=== PATIENT | male | born 1960 | race Caucasian/White ===

== ENCOUNTER → 2016-08-19 | Outpatient (CLI) | payer MEDICARE, MEDICAID ==
--- NOTE | 2016-08-19 11:40 | REP ---
SCROTAL ULTRASOUND: Real-time sonographic evaluation of the scrotum and contents performed. The testicles are normal in size and echotexture, right testicle measuring 5.0 x 2.3 x 3.3 cm and the left testicle 4.7 x 2.2 x 3.6 cm. There is no testicular mass or torsion. Blood for is seen in each testicle with duplex Doppler evaluation, RI of the right testicle is 0.48 and the left testicle is 0.44. IMPRESSION: Negative scrotal ultrasound. Signed by Teddy Hernandez MD 08/19/2016 03:54 P
== END ==
LOC: M RAD 10:37
PROVIDERS: ATTEND Nurse Practitioner Adult Health
DX: N50.9 Disorder of male genital organs, unspecified (principal)

== ENCOUNTER 2018-04-09 06:45 | Emergency (ER) | payer MEDICARE, MEDICAID ==
[2018-04-09 07:29] LABS: BASO % 0.2 % (0.0-1.0); EOS # 0.2 10^3/uL (0.0-0.50); EOS % 1.1 % (0.0-3.0); HEMATOCRIT 53.3 % (42.0-52.0); HEMOGLOBIN 17.3 g/dl (13.5-17.5); IMMATURE GRANULOCYTE % 0.8 % (0-3.0); LYMPH # 3.6 10^3/uL (1.5-4.5); MEAN CORPUSCULAR HEMOGLOBIN 27.8 pg (27.0-33.0); MEAN CORPUSCULAR HGB CONC 32.5 g/dl (32.0-36.5); MEAN CORPUSCULAR VOLUME 85.7 fl (80.0-96.0); MONO # 1.2 10^3/uL (0.0-0.8); MONO % 6.1 % (0.0-5.0); NEUTROPHILS # 14.5 10^3/uL (1.8-7.7); NEUTROPHILS % 73.8 % (36.0-66.0); PLATELET COUNT, AUTOMATED 230 10^3/uL (150-450); RED BLOOD COUNT 6.22 10^6/uL (4.30-6.10); RED CELL DISTRIBUTION WIDTH 14.2 % (11.5-14.5); WHITE BLOOD COUNT 19.7 10^3/uL (4.0-10.0)
[2018-04-09] MEDS: ONDANSETRON 4MG/2ML VIAL (J2405) IV (07:42)
[2018-04-09] MEDS: NS 1,000 ML IV (07:42)
[2018-04-09] MEDS: KETOROLAC 30 MG/ML VIAL (J1885) IV (07:42)
[2018-04-09 07:53] LABS: ANION GAP 7 MEQ/L (8-16); BLOOD UREA NITROGEN 13 MG/DL (7-18); CALCIUM LEVEL 8.9 MG/DL (8.5-10.1); CARBON DIOXIDE LEVEL 27 MEQ/L (21-32); CHLORIDE LEVEL 103 MEQ/L (98-107); CREATININE FOR GFR 0.88 MG/DL (0.70-1.30); GLOMERULAR FILTRATION RATE > 60.0 (>56); GLUCOSE, FASTING 120 MG/DL (70-100); POTASSIUM SERUM 3.8 MEQ/L (3.5-5.1); SODIUM LEVEL 137 MEQ/L (136-145)
[2018-04-09] MEDS ORDERED: ISOVUE-370 76% 100ML VIAL (Q9967) As Ordered (08:01)
[2018-04-09] MEDS: MORPHINE 4 MG/ML 1ML VIAL/SYRINGE (J2270) IV (08:39)
[2018-04-09] MEDS: metroNIDAZOLE (FLAGYL) 500 MG TAB PO (09:23)
[2018-04-09] MEDS: CIPROFLOXACIN 500 MG TAB PO (09:23)
[2018-04-09 09:38] LABS: ALBUMIN 3.5 GM/DL (3.2-5.2); ALKALINE PHOSPHATASE 105 U/L (45-117); ALT/SGPT 19 U/L (12-78); AST/SGOT 17 U/L (7-37); BILIRUBIN,DIRECT 0.1 MG/DL (0.0-0.2); BILIRUBIN,TOTAL 0.4 MG/DL (0.2-1.0); C REACTIVE PROTEIN QUANTITATIV 5.79 MG/DL (0.00-0.30); LIPASE 57 U/L (73-393)
== END 2018-04-09 09:28 | disposition home or self-care (01) ==
LOC: M ED 06:45
DX: A08.4 Viral intestinal infection, unspecified (principal); I10 Essential (primary) hypertension; Z91.19 Patient's noncompliance with other medical treatment and regimen; F17.210 Nicotine dependence, cigarettes, uncomplicated
CPT/HCPCS: J2270

== ENCOUNTER 2019-02-05 03:44 | Emergency (ER) | payer MEDICARE ==
[~2019-02-05] VITALS: Ht 170.2 cm; Wt 67.4 kg
[~2019-02-05 03:44] MED LIST: CIPR-249 PO; FLAG500T PO; HYDR-3715 PO; ZOFR4TAB14 PO
[2019-02-05] MEDS ORDERED: SUMAtriptan SUCCINATE 6 MG/0.5 ML VIAL SC ONE (04:45)
[2019-02-05 05:12] VITALS: BP 177/101
== END 2019-02-05 05:14 | disposition home or self-care (01) ==
LOC: M ED 03:44
DX: G43.909 Migraine, unspecified, not intractable, without status migrainosus (principal); F17.200 Nicotine dependence, unspecified, uncomplicated

== ENCOUNTER 2019-03-06 20:09 | Emergency (ER) | payer MEDICARE ==
[~2019-03-06] VITALS: Ht 170.2 cm; Wt 67.9 kg
[2019-03-06 20:15] VITALS: BP 240/140
[2019-03-06] MEDS ORDERED: ACET-683 PO (20:18)
== END 2019-03-06 20:44 | disposition left against medical advice (07) ==
LOC: M ED 20:09
DX: I10 Essential (primary) hypertension (principal); G43.909 Migraine, unspecified, not intractable, without status migrainosus; F17.200 Nicotine dependence, unspecified, uncomplicated

== ENCOUNTER 2019-12-25 20:40 | Inpatient (IN) | payer MEDICARE ==
[~2019-12-25 20:40] MED LIST changes: +ACET-683 PO; +HYDROMORPHONE HCL 0.5 MG/ 0.5 ML SYRINGE (J1170 PER 1) As Ordered ONE; +ISOVUE-370 76% 100ML VIAL As Ordered ONE; +LABETALOL 100MG/20ML VIAL As Ordered ONE; +MORPHINE 4 MG/ML 1ML VIAL/SYRINGE (J2270) As Ordered ONE; +hydrALAZINE 20MG/ML 1ML VIAL (J0360 PER 20MG) As Ordered ONE; +niCARdipine 40MG IN 200ML NACL IV BAG As Ordered ONE
[2019-12-25] MEDS ORDERED: MIRALAX *UNIT DOSE* 17GM PACKET As Ordered ONE (22:27)
[2019-12-25] MEDS ORDERED: KETOROLAC 30 MG/ML 1ML VIAL As Ordered ONE (23:36)
[2019-12-25] MEDS ORDERED: ONDANSETRON 4MG/2ML VIAL As Ordered ONE (23:36)
[2019-12-26] MEDS ORDERED: MIRALAX *UNIT DOSE* 17GM PACKET As Ordered ONE ×2 (00:26→20:07)
[2019-12-26] MEDS ORDERED: lisinopriL 5 MG TAB As Ordered ONE (00:26)
[2019-12-26] MEDS ORDERED: MAGNESIUM OXIDE 400 MG TAB (MAG-OX) As Ordered ONE (00:49)
[2019-12-26] MEDS ORDERED: BISACODYL 5 MG TAB As Ordered ONE (02:36)
[2019-12-26] MEDS ORDERED: RAMELTEON 8 MG TAB (ROZEREM) As Ordered ONE ×2 (03:18→22:37)
[2019-12-26] MEDS ORDERED: SIMETHICONE 80 MG CHEW TAB As Ordered ONE (03:19)
[2019-12-26] MEDS ORDERED: MORPHINE 2 MG/ML 1ML VIAL (J2270) As Ordered ONE ×3 (09:22→20:43)
[2019-12-26] MEDS ORDERED: PROHANCE 279.3MG/ML 15ML VIAL As Ordered ONE (09:41)
[2019-12-26] MEDS ORDERED: LORazepam 2 MG/ML VIAL As Ordered ONE (10:07)
[2019-12-26] MEDS ORDERED: SENOKOT S TAB As Ordered ONE ×2 (10:56→20:07)
[2019-12-26] MEDS ORDERED: ENOXAPARIN 40MG/0.4ML SYRINGE (J1650 PER 10MG) As Ordered ONE (10:56)
[2019-12-26] MEDS ORDERED: CIPROFLOXACIN/D5W 400 MG/200 ML BAG (J0744) As Ordered ONE ×2 (10:56→21:05)
[2019-12-26] MEDS ORDERED: ASPIRIN 81 MG ENTERIC TAB As Ordered ONE (10:57)
[2019-12-26] MEDS ORDERED: amLODIPine 5 MG TAB As Ordered ONE ×2 (10:57→18:13)
[2019-12-26] MEDS ORDERED: lisinopriL 10 MG TAB As Ordered ONE (10:57)
[2019-12-26] MEDS ORDERED: LABETALOL 100MG/20ML VIAL ONE (11:00)
[2019-12-26] MEDS ORDERED: metroNIDAZOLE/NACL 500MG(5MG/ML) 100ML BAG (S0030) As Ordered ONE ×2 (13:14→22:02)
[2019-12-26] MEDS ORDERED: **hydrALAZINE HCL** 25 MG TAB As Ordered ONE ×3 (13:39→20:41)
[2019-12-26] MEDS ORDERED: LABETALOL 100MG/20ML VIAL As Ordered ONE (14:44)
[2019-12-26] MEDS ORDERED: LACOSAMIDE 10MG/ML 20ML VIAL (VIMPAT) As Ordered ONE (21:05)
[2019-12-26] MEDS ORDERED: niCARdipine 40MG IN 200ML NACL IV BAG As Ordered ONE (21:32)
[2019-12-26] MEDS ORDERED: NICOTINE 21MG/24HR 1 EA TRANSDERMAL As Ordered ONE (22:40)
[2019-12-26] MEDS ORDERED: NORCO, ANEXSIA 5/325MG TABLET (HYDROcodone/ACETAMINOPHEN) As Ordered ONE (23:07)
[2019-12-26] MEDS ORDERED: KETOROLAC 30 MG/ML 1ML VIAL As Ordered ONE (23:19)
[2019-12-27] MEDS ORDERED: metroNIDAZOLE/NACL 500MG(5MG/ML) 100ML BAG (S0030) As Ordered ONE ×3 (05:11→21:39)
[2019-12-27] MEDS ORDERED: MORPHINE 2 MG/ML 1ML VIAL (J2270) As Ordered ONE ×4 (07:57→19:57)
[2019-12-27] MEDS ORDERED: amLODIPine 10 MG TAB As Ordered ONE (07:57)
[2019-12-27] MEDS ORDERED: METOPROLOL TART 50 MG TAB As Ordered ONE ×2 (08:23→19:57)
[2019-12-27] MEDS ORDERED: cloNIDine 0.1 MG TAB As Ordered ONE ×3 (08:24→19:57)
[2019-12-27] MEDS ORDERED: ENOXAPARIN 40MG/0.4ML SYRINGE (J1650 PER 10MG) As Ordered ONE (09:27)
[2019-12-27] MEDS ORDERED: SENOKOT S TAB As Ordered ONE ×2 (09:28→20:38)
[2019-12-27] MEDS ORDERED: ASPIRIN 81 MG ENTERIC TAB As Ordered ONE (09:29)
[2019-12-27] MEDS ORDERED: CIPROFLOXACIN/D5W 400 MG/200 ML BAG (J0744) As Ordered ONE ×2 (09:30→22:59)
[2019-12-27] MEDS ORDERED: ADVAIR HFA 115/21MCG INHALER ONE (10:00)
[2019-12-27] MEDS ORDERED: LORazepam 2 MG/ML VIAL As Ordered ONE (11:49)
[2019-12-27] MEDS ORDERED: ISOVUE-370 76% 100ML VIAL As Ordered ONE (12:18)
[2019-12-27] MEDS ORDERED: NICOTINE 21MG/24HR 1 EA TRANSDERMAL As Ordered ONE (13:12)
[2019-12-27] MEDS ORDERED: LIDOCAINE 5% (LIDODERM) PATCH As Ordered ONE (13:12)
[2019-12-27] MEDS ORDERED: LABETALOL 100MG/20ML VIAL As Ordered ONE (14:40)
[2019-12-27] MEDS ORDERED: BISACODYL 5 MG TAB As Ordered ONE (16:33)
[2019-12-27] MEDS ORDERED: MIRALAX *UNIT DOSE* 17GM PACKET As Ordered ONE (20:37)
[2019-12-27] MEDS ORDERED: ALPRAZolam 0.25 MG TAB As Ordered ONE (20:38)
[2019-12-28] MEDS ORDERED: MORPHINE 2 MG/ML 1ML VIAL (J2270) As Ordered ONE ×2 (00:16→04:06)
[2019-12-28] MEDS ORDERED: metroNIDAZOLE/NACL 500MG(5MG/ML) 100ML BAG (S0030) As Ordered ONE ×3 (05:55→19:41)
[2019-12-28] MEDS ORDERED: LABETALOL 100 MG TAB As Ordered ONE ×2 (09:28→19:42)
[2019-12-28] MEDS ORDERED: NICOTINE 21MG/24HR 1 EA TRANSDERMAL As Ordered ONE (09:28)
[2019-12-28] MEDS ORDERED: CIPROFLOXACIN/D5W 400 MG/200 ML BAG (J0744) As Ordered ONE ×2 (09:29→22:45)
[2019-12-28] MEDS ORDERED: LIDOCAINE 5% (LIDODERM) PATCH As Ordered ONE (09:29)
[2019-12-28] MEDS ORDERED: ENOXAPARIN 40MG/0.4ML SYRINGE (J1650 PER 10MG) As Ordered ONE (09:29)
[2019-12-28] MEDS ORDERED: SENOKOT S TAB As Ordered ONE ×2 (09:29→19:42)
[2019-12-28] MEDS ORDERED: cloNIDine 0.1 MG TAB As Ordered ONE ×2 (09:30→19:43)
[2019-12-28] MEDS ORDERED: ASPIRIN 81 MG ENTERIC TAB As Ordered ONE (09:31)
[2019-12-28] MEDS ORDERED: amLODIPine 10 MG TAB As Ordered ONE (09:31)
[2019-12-28] MEDS ORDERED: LACTULOSE 20 GM/30 ML SYRUP UD As Ordered ONE (09:31)
[2019-12-28] MEDS ORDERED: PERCOCET 5MG/325MG TAB As Ordered ONE ×3 (09:34→19:43)
[2019-12-28] MEDS ORDERED: ADVAIR HFA 115/21MCG INHALER ONE (10:00)
[2019-12-28] MEDS ORDERED: IPRATROPIUM 0.5MG/ALBUTEROL 2.5MG INH SOL UD 3ML (DUONEB) ONE (10:00)
[2019-12-28] MEDS ORDERED: MIRALAX *UNIT DOSE* 17GM PACKET As Ordered ONE (19:41)
[2019-12-28] MEDS ORDERED: ALPRAZolam 0.25 MG TAB As Ordered ONE (19:42)
[2019-12-28] MEDS ORDERED: ONDANSETRON 4MG/2ML VIAL As Ordered ONE (19:51)
[2019-12-28] MEDS ORDERED: SIMETHICONE 80 MG CHEW TAB As Ordered ONE (22:50)
[2019-12-29] MEDS ORDERED: PERCOCET 5MG/325MG TAB ONE ×3 (01:06→12:45)
[2019-12-29] MEDS ORDERED: metroNIDAZOLE/NACL 500MG(5MG/ML) 100ML BAG (S0030) ONE (05:51)
[2019-12-29] MEDS ORDERED: ALPRAZolam 0.25 MG TAB ONE (05:51)
[2019-12-29] MEDS ORDERED: cloNIDine 0.1 MG TAB ONE (07:55)
[2019-12-29] MEDS ORDERED: LIDOCAINE 5% (LIDODERM) PATCH ONE (07:55)
[2019-12-29] MEDS ORDERED: ENOXAPARIN 40MG/0.4ML SYRINGE (J1650 PER 10MG) ONE (07:55)
[2019-12-29] MEDS ORDERED: SENNA 8.6 MG TAB (SENOKOT) ONE (07:55)
[2019-12-29] MEDS ORDERED: ASPIRIN 81 MG ENTERIC TAB ONE (07:55)
[2019-12-29] MEDS ORDERED: LABETALOL 100 MG TAB ONE ×2 (07:55→09:32)
[2019-12-29] MEDS ORDERED: amLODIPine 10 MG TAB ONE (07:55)
[2019-12-29] MEDS ORDERED: NICOTINE 21MG/24HR 1 EA TRANSDERMAL ONE (07:55)
[2019-12-29] MEDS ORDERED: LABETALOL 100MG/20ML VIAL ONE (08:00)
[2019-12-29] MEDS ORDERED: ADVAIR HFA 115/21MCG INHALER ONE (10:00)
[2019-12-29] MEDS ORDERED: IPRATROPIUM 0.5MG/ALBUTEROL 2.5MG INH SOL UD 3ML (DUONEB) ONE (10:00)
[2019-12-29] MEDS ORDERED: CIPROFLOXACIN/D5W 400 MG/200 ML BAG (J0744) ONE (11:27)
[2019-12-29] MEDS ORDERED: LABETALOL ONE (13:00)
[2019-12-29] MEDS ORDERED: MAGNESIUM CITRATE 300 ML BTL ONE (13:31)
[2019-12-29] MEDS ORDERED: metroNIDAZOLE/NACL 500MG(5MG/ML) 100ML BAG (S0030) As Ordered ONE ×2 (13:34→20:35)
[2019-12-29] MEDS ORDERED: ALPRAZolam 0.25 MG TAB As Ordered ONE ×2 (15:09→20:56)
[2019-12-29] MEDS ORDERED: MOM 30ML SUSPENSION UDC As Ordered ONE (20:35)
[2019-12-29] MEDS ORDERED: ONDANSETRON 4MG/2ML VIAL As Ordered ONE (20:35)
[2019-12-29] MEDS ORDERED: MIRALAX *UNIT DOSE* 17GM PACKET As Ordered ONE (20:35)
[2019-12-29] MEDS ORDERED: SENNA 8.6 MG TAB (SENOKOT) As Ordered ONE (20:35)
[2019-12-29] MEDS ORDERED: LABETALOL 200 MG TAB As Ordered ONE (20:36)
[2019-12-29] MEDS ORDERED: PERCOCET 5MG/325MG TAB As Ordered ONE (20:56)
[2019-12-29] MEDS ORDERED: cloNIDine 0.1 MG TAB As Ordered ONE (21:20)
[2019-12-29] MEDS ORDERED: CIPROFLOXACIN/D5W 400 MG/200 ML BAG (J0744) As Ordered ONE (23:43)
[2019-12-30] MEDS ORDERED: metroNIDAZOLE/NACL 500MG(5MG/ML) 100ML BAG (S0030) As Ordered ONE ×3 (05:47→22:17)
[2019-12-30] MEDS ORDERED: NICOTINE 21MG/24HR 1 EA TRANSDERMAL As Ordered ONE (08:17)
[2019-12-30] MEDS ORDERED: SENNA 8.6 MG TAB (SENOKOT) As Ordered ONE (08:17)
[2019-12-30] MEDS ORDERED: cloNIDine 0.1 MG TAB As Ordered ONE ×2 (08:18→21:15)
[2019-12-30] MEDS ORDERED: ENOXAPARIN 40MG/0.4ML SYRINGE (J1650 PER 10MG) As Ordered ONE (08:18)
[2019-12-30] MEDS ORDERED: ALPRAZolam 0.25 MG TAB As Ordered ONE ×2 (08:18→21:24)
[2019-12-30] MEDS ORDERED: LIDOCAINE 5% (LIDODERM) PATCH As Ordered ONE (08:18)
[2019-12-30] MEDS ORDERED: ASPIRIN 81 MG ENTERIC TAB As Ordered ONE (08:19)
[2019-12-30] MEDS ORDERED: PERCOCET 5MG/325MG TAB As Ordered ONE ×3 (08:19→21:24)
[2019-12-30] MEDS ORDERED: amLODIPine 10 MG TAB As Ordered ONE (08:19)
[2019-12-30] MEDS ORDERED: LABETALOL 200 MG TAB As Ordered ONE ×2 (08:31→21:14)
[2019-12-30] MEDS ORDERED: ADVAIR HFA 115/21MCG INHALER ONE (10:00)
[2019-12-30] MEDS ORDERED: IPRATROPIUM 0.5MG/ALBUTEROL 2.5MG INH SOL UD 3ML (DUONEB) ONE (10:00)
[2019-12-30] MEDS ORDERED: guaiFENesin ER 600 MG TAB As Ordered ONE ×2 (10:07→21:14)
[2019-12-30] MEDS ORDERED: CIPROFLOXACIN/D5W 400 MG/200 ML BAG (J0744) As Ordered ONE ×2 (10:08→23:48)
[2019-12-30] MEDS ORDERED: SENOKOT S TAB As Ordered ONE (21:14)
[2019-12-30] MEDS ORDERED: MIRALAX *UNIT DOSE* 17GM PACKET As Ordered ONE (21:14)
[2019-12-30] MEDS ORDERED: SIMETHICONE 80 MG CHEW TAB As Ordered ONE (21:24)
[2019-12-31] MEDS ORDERED: metroNIDAZOLE/NACL 500MG(5MG/ML) 100ML BAG (S0030) As Ordered ONE ×3 (05:20→20:06)
[2019-12-31] MEDS ORDERED: PERCOCET 5MG/325MG TAB As Ordered ONE ×3 (05:32→17:59)
[2019-12-31] MEDS ORDERED: SENOKOT S TAB As Ordered ONE ×2 (08:28→20:06)
[2019-12-31] MEDS ORDERED: amLODIPine 10 MG TAB As Ordered ONE (08:28)
[2019-12-31] MEDS ORDERED: guaiFENesin ER 600 MG TAB As Ordered ONE ×2 (08:28→20:06)
[2019-12-31] MEDS ORDERED: LIDOCAINE 5% (LIDODERM) PATCH As Ordered ONE (08:29)
[2019-12-31] MEDS ORDERED: LABETALOL 200 MG TAB As Ordered ONE (08:29)
[2019-12-31] MEDS ORDERED: ENOXAPARIN 40MG/0.4ML SYRINGE (J1650 PER 10MG) As Ordered ONE (08:29)
[2019-12-31] MEDS ORDERED: NICOTINE 21MG/24HR 1 EA TRANSDERMAL As Ordered ONE (08:29)
[2019-12-31] MEDS ORDERED: cloNIDine 0.1 MG TAB As Ordered ONE ×2 (08:30→20:07)
[2019-12-31] MEDS ORDERED: ASPIRIN 81 MG ENTERIC TAB As Ordered ONE (08:30)
[2019-12-31] MEDS ORDERED: ACETAMINOPHEN TAB 650MG DOSE (2X325MG) As Ordered ONE (08:55)
[2019-12-31] MEDS ORDERED: ADVAIR HFA 115/21MCG INHALER ONE (10:00)
[2019-12-31] MEDS ORDERED: IPRATROPIUM 0.5MG/ALBUTEROL 2.5MG INH SOL UD 3ML (DUONEB) ONE (10:00)
[2019-12-31] MEDS ORDERED: CIPROFLOXACIN/D5W 400 MG/200 ML BAG (J0744) As Ordered ONE (11:56)
[2019-12-31] MEDS ORDERED: ALPRAZolam 0.25 MG TAB As Ordered ONE ×2 (12:04→20:16)
[2019-12-31] MEDS ORDERED: ISOVUE-370 76% 100ML VIAL ONE (15:15)
[2019-12-31] MEDS ORDERED: LABETALOL 100 MG TAB As Ordered ONE ×2 (17:46→20:07)
[2019-12-31] MEDS ORDERED: MIRALAX *UNIT DOSE* 17GM PACKET As Ordered ONE (20:07)
[2019-12-31] MEDS ORDERED: RAMELTEON 8 MG TAB (ROZEREM) As Ordered ONE (20:16)
[2019-12-31] MEDS ORDERED: LABETALOL 100MG/20ML VIAL ONE (23:46)
[2019-12-31] MEDS ORDERED: LACTULOSE 20 GM/30 ML SYRUP UD ONE (23:46)
[2019-12-31] MEDS ORDERED: CYCLOBENZAPRINE 10MG TABLET ONE (23:46)
[2019-12-31] MEDS ORDERED: PERCOCET 5MG/325MG TAB ONE (23:46)
[2019-12-31] MEDS ORDERED: CIPROFLOXACIN/D5W 400 MG/200 ML BAG (J0744) ONE (23:46)
[2020-01-01] MEDS ORDERED: metroNIDAZOLE/NACL 500MG(5MG/ML) 100ML BAG (S0030) ONE ×2 (06:44→20:30)
[2020-01-01] MEDS ORDERED: SENOKOT S TAB As Ordered ONE (09:10)
[2020-01-01] MEDS ORDERED: guaiFENesin ER 600 MG TAB As Ordered ONE (09:10)
[2020-01-01] MEDS ORDERED: amLODIPine 10 MG TAB As Ordered ONE (09:11)
[2020-01-01] MEDS ORDERED: LABETALOL 100 MG TAB As Ordered ONE ×2 (09:11→13:59)
[2020-01-01] MEDS ORDERED: ENOXAPARIN 40MG/0.4ML SYRINGE (J1650 PER 10MG) As Ordered ONE (09:11)
[2020-01-01] MEDS ORDERED: NICOTINE 21MG/24HR 1 EA TRANSDERMAL As Ordered ONE (09:11)
[2020-01-01] MEDS ORDERED: cloNIDine 0.1 MG TAB As Ordered ONE (09:12)
[2020-01-01] MEDS ORDERED: ASPIRIN 81 MG ENTERIC TAB As Ordered ONE (09:12)
[2020-01-01] MEDS ORDERED: PERCOCET 5MG/325MG TAB As Ordered ONE (09:20)
[2020-01-01] MEDS ORDERED: ADVAIR HFA 115/21MCG INHALER ONE (10:00)
[2020-01-01] MEDS ORDERED: IPRATROPIUM 0.5MG/ALBUTEROL 2.5MG INH SOL UD 3ML (DUONEB) ONE (10:00)
[2020-01-01] MEDS ORDERED: LABETALOL 100 MG TAB ONE ×2 (11:28→21:00)
[2020-01-01] MEDS ORDERED: CIPROFLOXACIN/D5W 400 MG/200 ML BAG (J0744) As Ordered ONE (11:30)
[2020-01-01] MEDS ORDERED: metroNIDAZOLE/NACL 500MG(5MG/ML) 100ML BAG (S0030) As Ordered ONE (13:59)
[2020-01-01] MEDS ORDERED: MAGNESIUM CITRATE 300 ML BTL ONE (14:00)
[2020-01-01] MEDS ORDERED: ALPRAZolam 0.25 MG TAB As Ordered ONE (16:29)
[2020-01-01] MEDS ORDERED: D5W ONE (20:30)
[2020-01-01] MEDS ORDERED: CIPROFLOXACIN ONE (20:30)
[2020-01-01] MEDS ORDERED: PERCOCET 5MG/325MG TAB ONE (20:30)
[2020-01-01] MEDS ORDERED: CYCLOBENZAPRINE 10MG TABLET ONE (20:30)
[2020-01-01] MEDS ORDERED: guaiFENesin ER 600 MG TAB ONE (20:30)
[2020-01-01] MEDS ORDERED: RAMELTEON 8 MG TAB (ROZEREM) ONE (20:30)
[2020-01-01] MEDS ORDERED: SENOKOT S TAB ONE (20:30)
[2020-01-01] MEDS ORDERED: cloNIDine 0.1 MG TAB ONE (20:30)
[2020-01-01] MEDS ORDERED: MIRALAX *UNIT DOSE* 17GM PACKET ONE (20:30)
[2020-01-02] MEDS ORDERED: SODIUM CHLORIDE ONE (04:40)
[2020-01-02] MEDS ORDERED: METRONIDAZOLE ONE (04:40)
[2020-01-02] MEDS ORDERED: PERCOCET 5MG/325MG TAB As Ordered ONE ×3 (04:57→20:44)
[2020-01-02] MEDS ORDERED: CYCLOBENZAPRINE 10MG TABLET As Ordered ONE ×2 (04:57→22:29)
[2020-01-02] MEDS ORDERED: SENOKOT S TAB As Ordered ONE (09:13)
[2020-01-02] MEDS ORDERED: amLODIPine 10 MG TAB As Ordered ONE (09:14)
[2020-01-02] MEDS ORDERED: ENOXAPARIN 40MG/0.4ML SYRINGE (J1650 PER 10MG) As Ordered ONE (09:14)
[2020-01-02] MEDS ORDERED: LABETALOL 200 MG TAB As Ordered ONE (09:14)
[2020-01-02] MEDS ORDERED: guaiFENesin ER 600 MG TAB As Ordered ONE ×2 (09:14→20:40)
[2020-01-02] MEDS ORDERED: NICOTINE 21MG/24HR 1 EA TRANSDERMAL As Ordered ONE (09:14)
[2020-01-02] MEDS ORDERED: cloNIDine 0.1 MG TAB As Ordered ONE ×2 (09:15→20:41)
[2020-01-02] MEDS ORDERED: ASPIRIN 81 MG ENTERIC TAB As Ordered ONE (09:15)
[2020-01-02] MEDS ORDERED: LIDOCAINE 5% (LIDODERM) PATCH As Ordered ONE (09:15)
[2020-01-02] MEDS ORDERED: ADVAIR HFA 115/21MCG INHALER ONE (10:00)
[2020-01-02] MEDS ORDERED: IPRATROPIUM 0.5MG/ALBUTEROL 2.5MG INH SOL UD 3ML (DUONEB) ONE (10:00)
[2020-01-02] MEDS ORDERED: metroNIDAZOLE/NACL 500MG(5MG/ML) 100ML BAG (S0030) As Ordered ONE ×2 (10:58→22:29)
[2020-01-02] MEDS ORDERED: CIPROFLOXACIN/D5W 400 MG/200 ML BAG (J0744) As Ordered ONE ×2 (10:58→23:58)
[2020-01-02] MEDS ORDERED: LABETALOL 100 MG TAB As Ordered ONE (13:25)
[2020-01-02] MEDS ORDERED: ALPRAZolam 0.25 MG TAB As Ordered ONE (13:29)
[2020-01-02] MEDS ORDERED: MIRALAX *UNIT DOSE* 17GM PACKET As Ordered ONE (20:40)
[2020-01-02] MEDS ORDERED: SENNA 8.6 MG TAB (SENOKOT) As Ordered ONE (20:40)
[2020-01-02] MEDS ORDERED: ACETAMINOPHEN TAB 650MG DOSE (2X325MG) As Ordered ONE (23:59)
[2020-01-03] MEDS ORDERED: PERCOCET 5MG/325MG TAB As Ordered ONE ×4 (05:58→22:46)
[2020-01-03] MEDS ORDERED: metroNIDAZOLE/NACL 500MG(5MG/ML) 100ML BAG (S0030) As Ordered ONE ×3 (05:58→22:46)
[2020-01-03] MEDS ORDERED: guaiFENesin ER 600 MG TAB As Ordered ONE ×2 (08:41→20:30)
[2020-01-03] MEDS ORDERED: SENNA 8.6 MG TAB (SENOKOT) As Ordered ONE (08:42)
[2020-01-03] MEDS ORDERED: MIRALAX *UNIT DOSE* 17GM PACKET As Ordered ONE ×2 (08:42→20:30)
[2020-01-03] MEDS ORDERED: amLODIPine 10 MG TAB As Ordered ONE (08:42)
[2020-01-03] MEDS ORDERED: ENOXAPARIN 40MG/0.4ML SYRINGE (J1650 PER 10MG) As Ordered ONE (08:42)
[2020-01-03] MEDS ORDERED: NICOTINE 21MG/24HR 1 EA TRANSDERMAL As Ordered ONE (08:42)
[2020-01-03] MEDS ORDERED: LABETALOL 200 MG TAB As Ordered ONE (08:42)
[2020-01-03] MEDS ORDERED: ASPIRIN 81 MG ENTERIC TAB As Ordered ONE (08:43)
[2020-01-03] MEDS ORDERED: LIDOCAINE 5% (LIDODERM) PATCH As Ordered ONE (08:43)
[2020-01-03] MEDS ORDERED: cloNIDine 0.1 MG TAB As Ordered ONE ×2 (08:43→20:31)
[2020-01-03] MEDS ORDERED: ALPRAZolam 0.25 MG TAB As Ordered ONE ×2 (08:55→15:42)
[2020-01-03] MEDS ORDERED: ISOVUE-370 76% 100ML VIAL ONE (09:24)
[2020-01-03] MEDS ORDERED: IPRATROPIUM 0.5MG/ALBUTEROL 2.5MG INH SOL UD 3ML (DUONEB) ONE (10:00)
[2020-01-03] MEDS ORDERED: ADVAIR HFA 115/21MCG INHALER ONE (10:00)
[2020-01-03] MEDS ORDERED: CIPROFLOXACIN/D5W 400 MG/200 ML BAG (J0744) As Ordered ONE ×2 (11:48→23:49)
[2020-01-03] MEDS ORDERED: BISACODYL 10 MG SUPP As Ordered ONE (11:54)
[2020-01-03] MEDS ORDERED: ACETAMINOPHEN TAB 650MG DOSE (2X325MG) As Ordered ONE ×2 (11:54→20:30)
[2020-01-03] MEDS ORDERED: LABETALOL 100 MG TAB As Ordered ONE ×2 (13:03→20:30)
[2020-01-03] MEDS ORDERED: SENOKOT S TAB As Ordered ONE (20:29)
[2020-01-03] MEDS ORDERED: CYCLOBENZAPRINE 10MG TABLET As Ordered ONE (20:30)
[2020-01-04] MEDS ORDERED: metroNIDAZOLE/NACL 500MG(5MG/ML) 100ML BAG (S0030) As Ordered ONE (05:21)
[2020-01-04] MEDS ORDERED: PERCOCET 5MG/325MG TAB As Ordered ONE (05:21)
[2020-01-04] MEDS ORDERED: amLODIPine 10 MG TAB ONE (08:33)
[2020-01-04] MEDS ORDERED: guaiFENesin ER 600 MG TAB ONE (08:33)
[2020-01-04] MEDS ORDERED: ENOXAPARIN 40MG/0.4ML SYRINGE (J1650 PER 10MG) ONE (08:33)
[2020-01-04] MEDS ORDERED: ASPIRIN 81 MG ENTERIC TAB ONE (08:34)
[2020-01-04] MEDS ORDERED: NICOTINE 21MG/24HR 1 EA TRANSDERMAL ONE (08:34)
[2020-01-04] MEDS ORDERED: SENNA 8.6 MG TAB (SENOKOT) ONE (08:34)
[2020-01-04] MEDS ORDERED: ALPRAZolam 0.25 MG TAB ONE ×3 (08:34→19:31)
[2020-01-04] MEDS ORDERED: cloNIDine 0.1 MG TAB ONE (08:34)
[2020-01-04] MEDS ORDERED: LABETALOL 200 MG TAB ONE (08:34)
[2020-01-04] MEDS ORDERED: CIPROFLOXACIN/D5W 400 MG/200 ML BAG (J0744) ONE (12:01)
[2020-01-04] MEDS ORDERED: LABETALOL 100 MG TAB ONE ×2 (13:40)
[2020-01-04] MEDS ORDERED: ACET-897 PO (15:18)
[2020-01-04] MEDS ORDERED: RAMELTEON 8 MG TAB (ROZEREM) PO PRN (15:30)
[2020-01-04] MEDS ORDERED: BISACODYL 10 MG SUPP PR PRN (15:30)
[2020-01-04] MEDS ORDERED: BISACODYL 5 MG TAB PO PRN (15:30)
[2020-01-04] MEDS ORDERED: CYCLOBENZAPRINE 5MG TABLET PO PRN (15:30)
[2020-01-04] MEDS ORDERED: FIORICET TAB PO PRN (15:30)
[2020-01-04] MEDS ORDERED: ACETAMINOPHEN TAB 650MG DOSE (2X325MG) PO PRN (15:30)
[2020-01-04] MEDS ORDERED: ALBUTEROL SULFATE 2.5 MG/0.5 ML INH NEB SOLN INH PRN (15:30)
[2020-01-04] MEDS ORDERED: SIMETHICONE 80 MG CHEW TAB PO PRN (15:30)
[2020-01-04] MEDS ORDERED: ONDANSETRON 4MG/2ML VIAL IV PRN (15:30)
[2020-01-04] MEDS ORDERED: PERCOCET 5MG/325MG TAB ONE (19:25)
[2020-01-04 20:00] VITALS: BP 132/74
[2020-01-04] MEDS: IPRATROPIUM 0.5MG/ALBUTEROL 2.5MG INH SOL UD 3ML (DUONEB) INH SCH (20:00)
[2020-01-04] MEDS: ADVAIR HFA 115/21MCG INHALER INH SCH (20:30)
[2020-01-04] MEDS: MIRALAX *UNIT DOSE* 17GM PACKET PO SCH (20:44)
[2020-01-04] MEDS: LABETALOL 200 MG TAB PO SCH (20:45)
[2020-01-04] MEDS: SENOKOT S TAB PO SCH (20:46)
[2020-01-04] MEDS: guaiFENesin ER 600 MG TAB PO SCH (20:46)
[2020-01-04] MEDS: cloNIDine 0.1 MG TAB PO SCH (20:47)
[2020-01-04 21:25] LABS: HEMATOCRIT 37.4 % (42.0-52.0); MEAN CORPUSCULAR HEMOGLOBIN 29.1 pg (27.0-33.0); MEAN CORPUSCULAR HGB CONC 32.1 g/dl (32.0-36.5); MEAN CORPUSCULAR VOLUME 90.8 fl (80.0-96.0); PLATELET COUNT, AUTOMATED 417 10^3/uL (150-450); RED BLOOD COUNT 4.12 10^6/uL (4.30-6.10); WHITE BLOOD COUNT 10.6 10^3/uL (4.0-10.0)
[2020-01-04] MEDS ORDERED: metroNIDAZOLE 500 MG in IV 1 EA IV SCH (22:00)
[2020-01-04] MEDS ORDERED: CIPROFLOXACIN 400 MG in IV 1 EA IV SCH (23:00)
[2020-01-05] VITALS (7 sets, daily range): BP systolic 106–146; BP diastolic 63–88
[2020-01-05] MEDS: IPRATROPIUM 0.5MG/ALBUTEROL 2.5MG INH SOL UD 3ML (DUONEB) INH SCH ×3 (00:44→14:02)
[2020-01-05] MEDS: ALPRAZolam 0.25 MG TAB PO PRN ×3 (04:27→18:15)
[2020-01-05] MEDS: PERCOCET 5MG/325MG TAB PO PRN ×3 (04:27→18:16)
[2020-01-05 06:17] LABS: HEMATOCRIT 37.7 % (42.0-52.0); MEAN CORPUSCULAR HEMOGLOBIN 28.4 pg (27.0-33.0); MEAN CORPUSCULAR HGB CONC 31.8 g/dl (32.0-36.5); MEAN CORPUSCULAR VOLUME 89.3 fl (80.0-96.0); PLATELET COUNT, AUTOMATED 477 10^3/uL (150-450); RED BLOOD COUNT 4.22 10^6/uL (4.30-6.10); WHITE BLOOD COUNT 12.4 10^3/uL (4.0-10.0)
[2020-01-05 06:47] LABS: BLOOD UREA NITROGEN 13 MG/DL (7-18); CALCIUM LEVEL 8.4 MG/DL (8.5-10.1); CARBON DIOXIDE LEVEL 25 MEQ/L (21-32); CHLORIDE LEVEL 107 MEQ/L (98-107); GLOMERULAR FILTRATION RATE > 60.0 (>56); GLUCOSE, FASTING 98 MG/DL (70-100); POTASSIUM SERUM 4.2 MEQ/L (3.5-5.1); SODIUM LEVEL 138 MEQ/L (136-145)
[2020-01-05] MEDS: SENOKOT S TAB PO SCH ×2 (07:39→20:14)
[2020-01-05] MEDS: amLODIPine 10 MG TAB PO SCH (07:41)
[2020-01-05] MEDS: cloNIDine 0.1 MG TAB PO SCH ×2 (07:42→18:15)
[2020-01-05] MEDS: guaiFENesin ER 600 MG TAB PO SCH ×2 (07:42→20:14)
[2020-01-05] MEDS: LABETALOL 200 MG TAB PO SCH ×2 (07:42→20:14)
[2020-01-05] MEDS: ASPIRIN 81 MG ENTERIC TAB PO SCH (07:42)
[2020-01-05] MEDS: NICOTINE 21MG/24HR 1 EA TRANSDERMAL TD SCH (07:43)
[2020-01-05] MEDS: ENOXAPARIN 40MG/0.4ML SYRINGE (J1650 PER 10MG) SC SCH (07:43)
[2020-01-05] MEDS: ADVAIR HFA 115/21MCG INHALER INH SCH ×2 (08:33→19:40)
[2020-01-05] MEDS: LIDOCAINE 5% (LIDODERM) PATCH TD SCH (09:00)
[2020-01-05] MEDS ORDERED: SLF 3 ML SYR IV PRN (11:45)
[2020-01-05] MEDS: SLF 3 ML SYR IV SCH ×2 (14:00→20:46)
[2020-01-05] MEDS: LABETALOL 100 MG TAB PO SCH (14:00)
--- NOTE | 2020-01-05 14:33 | IPNPDOC ---
Subjective Date Seen The patient was seen on 01/05/20. Subjective Chief Complaint/HPI lower back pain Events since last encounter Mr. Bess is a 59 year old man, smoker, presented to hospital due to chest pain, dyspnea, severe hypertension, and noted to initially have renal stenosis, and further work-up revealed an thoracic descending triple AAA, with dissection with mural hematoma. He was in ICU for nitro drip. Vascular surgeon has been consulted, And aggressive medical management of BP as recommendation. patient underwent repeated CT scan since admission. I took over his care yesterday. His last CTA chest was 01/02 which showed enlarging of the aortic aneurysm == per review it was 12/25 3.3cm, and maximum diameter on 01/02 was 4cm, and aortic hiatus was 5 x 2 mm. Patient's Blood pressure was noted be better controlled - currently on labetalol, amlodipine, and clonidine. patient has been chest pain free. Only complaining of lower back pain, when he goes to sleep, but has resolved with pain meds. patient seen today, no chest pain, no dyspnea. No vomiting. Had BM. lower dull pain on the lower back but has resolved now. Objective Physical Examination General Exam: Positive: Alert, No Acute Distress, Other (frail appearing man, appears older than stated age ) Eye Exam: Positive: PERRLA, Conjunctiva & lids normal, EOMI; Negative: Sclera icteric ENT Exam: Positive: Atraumatic, Mucous membr. moist/pink, Pharynx Normal Neck Exam: Positive: Supple; Negative: JVD, thyromegaly Chest Exam: Positive: Clear to auscultation, Normal air movement Heart Exam: Positive: Rate Normal, Regular Rhythm, Normal S1, Normal S2; Negative: Murmurs, Rubs Telemetry: Positive: No significant arrhythmia Abdomen Exam: Positive: Normal bowel sounds, Soft; Negative: Tenderness, Hepatospenomegaly Male Exam: Positive: Normal Genital Exam Extremity Exam: Positive: Normal pulses; Negative: Clubbing, Cyanosis, Edema Skin Exam: Positive: Nl turgor and temperature; Negative: Rash, Breakdown Neuro Exam: Positive: Normal Gait, Normal Speech, Cranial Nerves 3-12 NL, Reflexes 2+ Psych Exam: Positive: Mental status NL, Mood NL, Oriented x 3 Assessment /Plan Assessment ASSESSMENT: 1. Hypertensive emergency, resolved 2. thoracic aortic dissection with mural hematoma, Aortic aneurysm 3. constipation 4. NIcotine dependence, cigarettes 5. Hypertension PLANS * SBP goal is 120-130. HR 70s. It has been 140s yesterday, will increase clonidine dose. * Called Dr. ascencio today, currently still in procedure, she will call me back after to discuss further plans of repeat imaging, etc. * Patient is not a candidate for rehab, he has been ambulating relatively well. * discussed on importance of smoking cessation. * Plans discussed with patient. * Once BP at goal, and no further symptoms, anticipate discharge in 24-48 hours, if cleared by vascular. Plan/VTE VTE Prophylaxis Ordered?: Yes VS, I&O, 24H, Fishbone Vital Signs/I&O Vital Signs Date Time Temp Pulse Resp B/P (MAP) Pulse Ox O2 Delivery O2 Flow Rate FiO2 01/05/20 12:09 20 01/05/20 12:00 97.4 80 138/79 (98) 95 Room Air I&O- Last 24 Hours up to 6 AM 01/05/20 06:00 Intake Total 680 ml Output Total 1700 ml Balance -1020 ml Laboratory Data 24H LABS Laboratory Tests 2 01/05/20 05:40: Nucleated Red Blood Cells % (auto) 0.0, Anion Gap 6L, Glomerular Filtration Rate > 60.0, Calcium Level 8.4L CBC/BMP Laboratory Tests 01/05/20 05:40 ISAAC CARVAJAL MD Jan 05, 2020 14:33
[2020-01-05] MEDS: LABETALOL 100MG/20ML VIAL IV PRN (17:03)
[2020-01-05] MEDS: MIRALAX *UNIT DOSE* 17GM PACKET PO SCH (20:14)
[2020-01-06] VITALS: BP 140/78
[2020-01-06] MEDS: ALPRAZolam 0.25 MG TAB PO PRN ×3 (01:28→13:01)
[2020-01-06] MEDS: cloNIDine 0.1 MG TAB PO SCH ×2 (01:29→10:41)
[2020-01-06] MEDS: PERCOCET 5MG/325MG TAB PO PRN ×3 (01:29→13:02)
[2020-01-06] MEDS: LABETALOL 100MG/20ML VIAL IV PRN (01:30)
[2020-01-06] MEDS: IPRATROPIUM 0.5MG/ALBUTEROL 2.5MG INH SOL UD 3ML (DUONEB) INH SCH (01:30)
[2020-01-06 04:00] VITALS: BP 134/76
[2020-01-06] MEDS: amLODIPine 10 MG TAB PO SCH (05:27)
[2020-01-06] MEDS ORDERED: amLODIPine 10 MG TAB PO ONE (05:30)
[2020-01-06] MEDS: SLF 3 ML SYR IV SCH ×2 (05:41→14:49)
[2020-01-06] MEDS: ADVAIR HFA 115/21MCG INHALER INH SCH (07:14)
[2020-01-06] MEDS: SENOKOT S TAB PO SCH (07:35)
[2020-01-06] MEDS: NICOTINE 21MG/24HR 1 EA TRANSDERMAL TD SCH (07:35)
[2020-01-06] MEDS: guaiFENesin ER 600 MG TAB PO SCH (07:35)
[2020-01-06] MEDS: ASPIRIN 81 MG ENTERIC TAB PO SCH (07:36)
[2020-01-06] MEDS: LABETALOL 200 MG TAB PO SCH (07:36)
[2020-01-06] MEDS: ENOXAPARIN 40MG/0.4ML SYRINGE (J1650 PER 10MG) SC SCH (07:37)
[2020-01-06] MEDS: LIDOCAINE 5% (LIDODERM) PATCH TD SCH (07:37)
[2020-01-06 08:00] VITALS: BP 127/73
[2020-01-06 10:00] VITALS: BP 133/71
[2020-01-06 10:33] LABS: HEMATOCRIT 38.7 % (42.0-52.0); HEMOGLOBIN 12.1 g/dl (13.5-17.5); MEAN CORPUSCULAR HEMOGLOBIN 28.5 pg (27.0-33.0); MEAN CORPUSCULAR HGB CONC 31.3 g/dl (32.0-36.5); MEAN CORPUSCULAR VOLUME 91.1 fl (80.0-96.0); PLATELET COUNT, AUTOMATED 380 10^3/uL (150-450); RED BLOOD COUNT 4.25 10^6/uL (4.30-6.10); WHITE BLOOD COUNT 12.8 10^3/uL (4.0-10.0)
[2020-01-06 12:00] VITALS: BP 134/78
[2020-01-06] MEDS ORDERED: ASPI81TAEC PO (12:01)
[2020-01-06] MEDS ORDERED: LABE20TAB PO (12:01)
[2020-01-06] MEDS ORDERED: AMLO1TAB25 PO (12:01)
[2020-01-06] MEDS ORDERED: LABE10TAB PO (12:01)
[2020-01-06] MEDS ORDERED: LIDO5TD TD (12:01)
[2020-01-06] MEDS ORDERED: NICO21PAT TD (12:01)
[2020-01-06] MEDS ORDERED: CYCL5TAB PO (12:01)
[2020-01-06] MEDS ORDERED: CLON0.2T PO (12:01)
[2020-01-06 13:01] VITALS: BP 134/78
[2020-01-06] MEDS: LABETALOL 100 MG TAB PO SCH (13:01)
[2020-01-06] MEDS ORDERED: OXYC1TAB23 PO (14:39)
--- NOTE | 2020-01-06 14:57 | DS.PDOC ---
Discharge Summary General Date of Admission Dec 25, 2019 at 21:10 Date of Discharge december Discharge Summary PROCEDURES PERFORMED DURING STAY: [None]. ADMITTING DIAGNOSES: 1. Hypertensive emergency, resolved 2. thoracic aortic dissection with mural hematoma, Aortic aneurysm, stable 3. constipation 4. NIcotine dependence, cigarettes 5. Hypertension DISCHARGE DIAGNOSES: 1. Hypertensive emergency, resolved 2. thoracic aortic dissection with mural hematoma, Aortic aneurysm 3. constipation 4. NIcotine dependence, cigarettes 5. Hypertension COMPLICATIONS/CHIEF COMPLAINT: Abdominal Pain. HISTORY OF PRESENT ILLNESS: Mr. Bess is a 59 year old man with known history of hypertension, smoking, presented to hospital due to abdominal pain, severely elevated BP,. work-up revealed aortic dissection with intramural hematoma, patient was admitted to ICu and started on nitro drip for BP control. Vascular surgery consulted. Patient underwent repeat Ct chest to monitor size of aortic aneurysm, and dissection, which has been slowly increasing, vascular surgeon closely followed up with patient, no surgical intervention recommended, aggressive BP management was done. Latest Ct scan on 01/02 showed stable aorta, reviewed by Dr. helton, and no changes, no surgical intervention, but need to control BP, and HR, 120-130, and HR 70s. doses of his medications has been adjusted - currently on amlodipine, clonidine, and labetalol, and HR controlled, BP had been controlled overnight, 1 episode [id number], additional Labetalol IV given, will increase clonidine. He has been stable for the past few days. He has intermittent lower back pain,. No chest pain, no dyspnea, no abdominal pain in the past few days. patient was initially evaluated for rehab, was no longer a candidate, as he is walking well without any assistance. He is advised to quit smoking, and close follow up. Dr. ascencio in 1 week, and repeat scan in 1 month. Patient is stable for discharge today. HOSPITAL COURSE: as above DISCHARGE MEDICATIONS: Please see below. ALLERGIES: Please see below. PHYSICAL EXAMINATION ON DISCHARGE: VITAL SIGNS: Please see below. Patient seen exam, frail appearing man appearing older than stated age. Not in any distress. clear breath sounsd, no rales or wheezing. soft, positive bowel sounds, no tenderness Extremitise: no edema, no calf tenderness noted. 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 No focal deficits noted LABORATORY DATA: Please see below. IMAGING: multiple CTA chest and abdomen PROGNOSIS:guarded ACTIVITY: [As tolerate, no heavy lifting DIET: cardiac diet. DISCHARGE PLAN: Discharge to home, with close follow up with Dr. Ascencio DISPOSITION: .HOME DISCHARGE INSTRUCTIONS: 1. Stop smoking 2. Check BP daily. Goal is 120-130, systolic, and HR 70s 3. pain medication prescribe. DO NOT drink or drive whileo n this medication. It can cause sedation, can cause addiction. ONLY to be use sparingly. ITEMS TO FOLLOWUP ON ON OUTPATIENT: 1. Dr. ascencio, vascular, in 1 week DISCHARGE CONDITION: stable and improved TIME SPENT ON DISCHARGE: educating patient, reviewing his chart, and med list is 35 minutes Vital Signs/I&Os Vital Signs Date Time Temp Pulse Resp B/P (MAP) Pulse Ox O2 Delivery O2 Flow Rate FiO2 01/06/20 10:41 133/81 01/06/20 10:00 79 01/06/20 08:06 20 01/06/20 08:00 97.6 95 Room Air I&O- Last 24 Hours up to 6 AM 01/06/20 06:00 Intake Total 900 ml Output Total 1475 ml Balance -575 ml Discharge Medications Scheduled Amlodipine Besylate (Amlodipine Besylate) 10 Mg Tablet, 10 MG PO DAILY Aspirin (Aspirin EC) 81 Mg Tablet.dr, 81 MG PO DAILY Clonidine HCl (Clonidine HCl) 0.2 Mg Tablet, 0.2 MG PO TID Labetalol HCl (Labetalol HCl) 200 Mg Tablet, 400 MG PO BID Labetalol HCl (Labetalol HCl) 100 Mg Tablet, 100 MG PO DAILY@1400 Lidocaine (Lidocaine) 5% Adh..patch, 1 PATCH TD DAILY Nicotine (Nicotine Patch) 21 Mg Patch.td24, 1 PATCH TD DAILY Scheduled PRN Acetaminophen (Tylenol Extra Strength) 500 Mg Tablet, 1,000 MG PO BID PRN for PAIN, (Reported) Cyclobenzaprine HCl (Cyclobenzaprine HCl) 5 Mg Tablet, 5 MG PO Q12HP PRN for BACK PAIN Allergies Coded Allergies: No Known Allergies (Unverified , 04/09/18) ISAAC CARVAJAL MD Jan 06, 2020 12:04
[2020-01-08 23:11] LABS: BLOOD UREA NITROGEN 11 MG/DL (7-18); CALCIUM LEVEL 8.2 MG/DL (8.5-10.1); CARBON DIOXIDE LEVEL 26 MEQ/L (21-32); CHLORIDE LEVEL 109 MEQ/L (98-107); CREATININE FOR GFR 0.77 MG/DL (0.70-1.30); GLOMERULAR FILTRATION RATE > 60.0 (>56); GLUCOSE, FASTING 97 MG/DL (70-100); POTASSIUM SERUM 4.1 MEQ/L (3.5-5.1); SODIUM LEVEL 140 MEQ/L (136-145)
--- NOTE | 2020-01-18 13:03 | CR ---
DATE OF CONSULTATION: 12/26/2019 REASON FOR CONSULTATION: Abdominal pain. HISTORY OF PRESENT ILLNESS: Mr. Bess is a 60-year-old male admitted overnight with complaints of abdominal pain, chest pain, back pain, that abruptly started yesterday while he was just watching TV. He denies any nausea or vomiting. He denies any prior symptoms. In the emergency department, he was found to have a markedly elevated blood pressure and subsequently admitted to the hospitalist service for uncontrolled hypertension. Among his other findings include an abdominal aortic aneurysm with clots intraluminally, likewise narrowing at the celiac artery and also at the right renal artery. He was subsequently admitted to the intensive care unit (ICU) and I was asked to consult with regard to the etiology of his pain. Also, there was a concern of possibility of gallbladder problem and he was found to have maybe atrophic gallbladder or distended gallbladder on the same CT that was done yesterday. Details of his history is a little sketchy, at the time that I saw him, he did not provide much details. Also, he just was from the MRI and he apparently had gotten a dose of Ativan for him to undergo the MRI. He has been telling the nurse that he has been having about 7/10 pain that has been steady. He points to the mid-epigastric area where he hurts. As I said, he denies any nausea or vomiting. He has had a bowel movement since yesterday prior to the onset of pain which he told me was normal. He denies any radiation of the pain. He tells me this is sharp and constant. MEDICAL AND SURGICAL HISTORY: He has a history of appendectomy, a right arm surgery, right cataract surgery. He had a prior history of head trauma remotely when he fell off a ladder. He is a smoker, about 1 1/2 packs a day. He has had some constipation. He has had a colonoscopy with polyps removed. He denies any diabetes. On examination, patient is awake. His speech is slurred. He is complaining of headaches. His eyes are midline. Pupils are reactive. Extraocular movements are full and equal. Tongue is midline. He tells me that his speech does get to be slurred when he has migraine headaches. No jugular venous distention. Lung sounds are clear to auscultation bilaterally without wheezing. Heart rate and rhythm are regular with no murmurs. Abdomen is relatively soft and does not appear to be distended. As I mentioned, due to him having received Ativan, response is a little bit sluggish. He does have some mild tenderness on deep palpation of the epigastric area. No rebound or guarding. He is nontender in the lower abdomen, mildly tender at the paraumbilical area. No significant extremity edema. LABORATORIES: Show he had an initial white count of 13,000, up to 17,000 today. BUN and creatinine at normal at 14 and 1.25. He had an initial lactic acid of 3.5, down to 1.9 today. IMAGING DATA: He has had multiple imaging studies that have been done including a CTA of the abdomen. This shows a distal abdominal aortic aneurysm up to 3.3 cm containing peripheral intraluminal clot with unclotted lumen measuring 2.1 cm, intraluminal clot extensive level of the renal artery. Atherosclerotic changes in the abdominal aorta and pelvic arteries. He also has atrophic gallbladder which is otherwise unremarkable. No obvious calculi. On ultrasound, this shows sludge without any gallbladder wall thickening. Negative for Worth sign. The clots surround the proximal celiac artery which slightly narrowed its origin. I looked at the imaging and looked at in particular the superior mesenteric artery (SMA), and this does not show any narrowing or any clots on it. He also had an MRA done to further evaluate his vascular system. This shows aortic aneurysm at the level of the aortic hiatus extending almost to the level of the artery with neural thrombus to the right, questionable high-grade to critical stenosis of the left renal artery, small focal saccular area of dilatation in distal aorta. IMPRESSION: Abdominal pain, uncertain etiology. It seems to be mainly epigastric. Despite not having any vomiting or severe diarrhea, he does look to have an elevated lactate, so there is concern of possibility of ischemic bowel. Even with minimal hydration, patients lactic acid continues to trend down. His superior mesenteric artery (SMA) is relatively clear, so unless there is a distal clot, probably not vascular in nature. Possibilities include pain from the renal aortic stenosis if this is fresh or some mild ischemic-like pain from the celiac artery, though this should not affect the small bowel. The gallbladder also is a possible cause of pain for biliary colic, but there is no signs of active inflammation at this time. So for now, I agree on continuing IV antibiotics. I think he should be briskly hydrated. He did not give any history of significant heart problems. He has been started on Cipro and Flagyl for either possibility from the ischemic bowel and/or the gallbladder, and to address the leukocytosis will continue this for now. I will follow along with the patient. As of now, I do not think he needs any emergent surgery. Thank you for consult. TRINI
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
--- NOTE | 2020-02-02 16:48 | ECGEPIP ---
SINUS RHYTHM POSSIBLE LEFT ATRIAL ENLARGEMENT BORDERLINE ECG DELAYED R PROGRESSION NONSPECIFIC ST & T-WAVE ABNORMALITY SEE SCANNED DOWNTIME REPORT MTDD
[2020-02-10 17:18] LABS: BASO # 0.1 10^3/uL (0.0-0.2); BASO % 0.4 % (0.0-1.0); EOS # 0.3 10^3/uL (0.0-0.5); EOS % 2.1 % (0.0-3.0); HEMOGLOBIN 17.3 g/dl (13.5-17.5); LYMPH # 3.5 10^3/uL (1.5-5.0); LYMPH % 26.6 % (24.0-44.0); MEAN CORPUSCULAR HEMOGLOBIN 28.8 pg (27.0-33.0); MEAN CORPUSCULAR HGB CONC 32.6 g/dl (32.0-36.5); MEAN CORPUSCULAR VOLUME 88.3 fl (80.0-96.0); MONO % 7.9 % (0.0-5.0); NEUTROPHILS # 8.2 10^3/uL (1.5-8.5); NEUTROPHILS % 62.4 % (36.0-66.0); PLATELET COUNT, AUTOMATED 210 10^3/uL (150-450); WHITE BLOOD COUNT 13.1 10^3/uL (4.0-10.0)
[2020-02-10 17:57] LABS: INR 1.17; PARTIAL THROMBOPLASTIN TIME 30.7 SECONDS (24.2-38.5); PROTHROMBIN TIME 15.1 SECONDS (12.5-14.3)
[2020-02-11 18:21] LABS: BASO % 0.2 % (0.0-1.0); HEMATOCRIT 47.3 % (42.0-52.0); HEMOGLOBIN 15.6 g/dl (13.5-17.5); LYMPH # 1.1 10^3/uL (1.5-5.0); LYMPH % 6.4 % (24.0-44.0); MEAN CORPUSCULAR HEMOGLOBIN 29.2 pg (27.0-33.0); MEAN CORPUSCULAR VOLUME 88.4 fl (80.0-96.0); MONO # 0.9 10^3/uL (0.0-0.8); MONO % 5.5 % (0.0-5.0); NEUTROPHILS # 14.8 10^3/uL (1.5-8.5); PLATELET COUNT, AUTOMATED 173 10^3/uL (150-450); RED BLOOD COUNT 5.35 10^6/uL (4.30-6.10); WHITE BLOOD COUNT 17.1 10^3/uL (4.0-10.0)
[2020-02-15 08:26] LABS: INR 1.24; PARTIAL THROMBOPLASTIN TIME 37.5 SECONDS (24.2-38.5); PROTHROMBIN TIME 15.9 SECONDS (12.5-14.3)
[2020-02-16 09:01] LABS: HEMATOCRIT 44.1 % (42.0-52.0); HEMOGLOBIN 14.3 g/dl (13.5-17.5); MEAN CORPUSCULAR HEMOGLOBIN 28.8 pg (27.0-33.0); MEAN CORPUSCULAR HGB CONC 32.4 g/dl (32.0-36.5); MEAN CORPUSCULAR VOLUME 88.9 fl (80.0-96.0); PLATELET COUNT, AUTOMATED 160 10^3/uL (150-450); RED BLOOD COUNT 4.96 10^6/uL (4.30-6.10); WHITE BLOOD COUNT 16.3 10^3/uL (4.0-10.0)
[2020-02-16 09:02] LABS: ERYTHROCYTE SEDIMENTATION RATE 9 mm/hr (0-20)
[2020-02-16 09:03] LABS: HEMATOCRIT 46.2 % (42.0-52.0); HEMOGLOBIN 15.1 g/dl (13.5-17.5); MEAN CORPUSCULAR HEMOGLOBIN 28.8 pg (27.0-33.0); MEAN CORPUSCULAR HGB CONC 32.7 g/dl (32.0-36.5); PLATELET COUNT, AUTOMATED 184 10^3/uL (150-450); RED BLOOD COUNT 5.25 10^6/uL (4.30-6.10); WHITE BLOOD COUNT 18.8 10^3/uL (4.0-10.0)
[2020-02-16 10:44] LABS: HEMATOCRIT 38.7 % (42.0-52.0)
[2020-02-16 11:02] LABS: HEMATOCRIT 42.7 % (42.0-52.0); MEAN CORPUSCULAR HEMOGLOBIN 29.2 pg (27.0-33.0); MEAN CORPUSCULAR HGB CONC 32.8 g/dl (32.0-36.5); MEAN CORPUSCULAR VOLUME 89.1 fl (80.0-96.0); PLATELET COUNT, AUTOMATED 151 10^3/uL (150-450); RED BLOOD COUNT 4.79 10^6/uL (4.30-6.10); WHITE BLOOD COUNT 14.6 10^3/uL (4.0-10.0)
[2020-02-17 08:04] LABS: HEMATOCRIT 44.2 % (42.0-52.0); HEMOGLOBIN 14.3 g/dl (13.5-17.5); MEAN CORPUSCULAR HEMOGLOBIN 29.4 pg (27.0-33.0); MEAN CORPUSCULAR HGB CONC 32.4 g/dl (32.0-36.5); MEAN CORPUSCULAR VOLUME 90.9 fl (80.0-96.0); PLATELET COUNT, AUTOMATED 153 10^3/uL (150-450); RED BLOOD COUNT 4.86 10^6/uL (4.30-6.10); WHITE BLOOD COUNT 14.3 10^3/uL (4.0-10.0)
[2020-02-17 08:18] LABS: APPEARANCE, URINE CLEAR (CLEAR); BACTERIA, URINE AUTO NEGATIVE (NEGATIVE); BILIRUBIN, URINE AUTO NEGATIVE (NEGATIVE); BLOOD, URINE BLOOD 1+ (NEGATIVE); COLOR, URINE YELLOW (YELLOW); GLUCOSE, URINE (UA) AUTO NEGATIVE (NEGATIVE); KETONE, URINE AUTO NEGATIVE (NEGATIVE); LEUKOCYTE ESTERASE, URINE AUTO NEGATIVE (NEGATIVE); NITRITE, URINE AUTO NEGATIVE (NEGATIVE); PROTEIN, URINE AUTO NEGATIVE (NEGATIVE); RBC, URINE AUTO 2 /HPF (0-3); SPECIFIC GRAVITY URINE AUTO 1.014 (1.002-1.035); SQUAMOUS EPITHELIAL CELL UR AU 0 /HPF (0-6); UROBILINOGEN, URINE AUTO 0.2 mg/dL (0.0-2.0); WBC, URINE AUTO 1 /HPF (0-3)
[2020-02-17 10:41] LABS: HEMATOCRIT 37.8 % (42.0-52.0); MEAN CORPUSCULAR HEMOGLOBIN 28.4 pg (27.0-33.0); MEAN CORPUSCULAR HGB CONC 31.7 g/dl (32.0-36.5); MEAN CORPUSCULAR VOLUME 89.6 fl (80.0-96.0); PLATELET COUNT, AUTOMATED 149 10^3/uL (150-450); RED BLOOD COUNT 4.22 10^6/uL (4.30-6.10); WHITE BLOOD COUNT 13.2 10^3/uL (4.0-10.0)
[2020-02-20 16:43] LABS: HEMATOCRIT 38.7 % (42.0-52.0); HEMOGLOBIN 12.4 g/dl (13.5-17.5); MEAN CORPUSCULAR HEMOGLOBIN 29.1 pg (27.0-33.0); MEAN CORPUSCULAR VOLUME 90.8 fl (80.0-96.0); PLATELET COUNT, AUTOMATED 216 10^3/uL (150-450); RED BLOOD COUNT 4.26 10^6/uL (4.30-6.10); WHITE BLOOD COUNT 13.5 10^3/uL (4.0-10.0)
--- NOTE | 2020-02-25 14:24 | ECHO ---
DATE OF PROCEDURE: 12/30/2019 Age: Gender: Male Height: 170 cm Weight: 68 kg REFERRING PHYSICIAN: Dr. Bauman INDICATION: Aortic dissection. MEASUREMENTS: Dimensions: RVS 0.9 Left ventricle (LV) 4.9 LVPW 1.0 LA 3.1. Aorta 3.3 RV 3.3 IVC 2.1 Mitral E-wave velocity 52, A-wave 47, E-prime septal 7.5, E-prime lateral 13.9. FINDINGS: The study is of good technical quality. The patient is in sinus rhythm. Left ventricle has normal size and systolic function. I estimate left ventricular ejection fraction (LVEF) 60% t o 65%. No segmental wall motion abnormalities are appreciated. Right ventricle also appears to be normal size and systolic function. Both atria appear normal. Aortic valve is mildly sclerotic, but has a 3 cusp and preserved mobility. Mitral, tricuspid and pulmonary valves appear normal. No pericardial effusion is noted. Inferior vena cava is mildly dilated, but collapses as inspiration indicative of likely mildly elevated central venous pressure. Aortic root, visualized segmental aortic arch and abdominal aorta appear normal. Doppler interrogation reveals competent aortic valve without significant stenosis or insufficiency. There is trace mitral and tricuspid insufficiency. Estimated pulmonary artery pressure is approximately 30 to 35 mmHg corresponding to mild pulmonary hypertension. Pulmonic valve is functionally competent. Darshana inflow pattern and tissue Doppler imaging of mitral annulus reveals likely normal diastolic function. CONCLUSIONS: 1. Study is of good technical quality, the patient is in sinus rhythm. 2. Normal LV size, systolic and diastolic function. 3. Aortic sclerosis, but no stenosis or insufficiency. 4. Trace mitral and tricuspid insufficiency. 5. Likely mildly elevated central venous pressure and pulmonary artery pressure. 6. Normally appearing aortic root, aortic arch and visualized segment of abdominal aorta. 7. No visualized aortic dissection. [facility]
[2020-02-27 08:09] LABS: HEMATOCRIT 37.6 % (42.0-52.0); HEMOGLOBIN 11.9 g/dl (13.5-17.5); MEAN CORPUSCULAR HEMOGLOBIN 28.7 pg (27.0-33.0); MEAN CORPUSCULAR HGB CONC 31.6 g/dl (32.0-36.5); MEAN CORPUSCULAR VOLUME 90.8 fl (80.0-96.0); PLATELET COUNT, AUTOMATED 247 10^3/uL (150-450); RED BLOOD COUNT 4.14 10^6/uL (4.30-6.10); WHITE BLOOD COUNT 13.5 10^3/uL (4.0-10.0)
[2020-02-27 18:14] LABS: HEMATOCRIT 39.7 % (42.0-52.0); HEMOGLOBIN 12.5 g/dl (13.5-17.5); MEAN CORPUSCULAR HEMOGLOBIN 28.9 pg (27.0-33.0); MEAN CORPUSCULAR HGB CONC 31.5 g/dl (32.0-36.5); MEAN CORPUSCULAR VOLUME 91.7 fl (80.0-96.0); PLATELET COUNT, AUTOMATED 294 10^3/uL (150-450); RED BLOOD COUNT 4.33 10^6/uL (4.30-6.10); WHITE BLOOD COUNT 11.9 10^3/uL (4.0-10.0)
[2020-03-13 15:15] LABS: RED BLOOD COUNT 4.35 10^6/uL (4.30-6.10)
[2020-03-13 15:16] LABS: HEMATOCRIT 39.2 % (42.0-52.0); HEMOGLOBIN 12.6 g/dl (13.5-17.5); MEAN CORPUSCULAR HGB CONC 32.1 g/dl (32.0-36.5); MEAN CORPUSCULAR VOLUME 90.1 fl (80.0-96.0); PLATELET COUNT, AUTOMATED 330 10^3/uL (150-450)
[2020-03-14 18:44] LABS: ABG BASE EXCESS 1.1 (-2.0-2.0); ABG HCO3 25.4 MEQ/L (22.0-26.0); ABG O2 SATURATION 97.9 % (95.0-99.0); ABG PARTIAL PRESSURE CO2 39.4 mmHg (35.0-45.0); ABG PARTIAL PRESSURE O2 93.1 mmHg (75.0-100.0); ABG STANDARD HCO3 25.5 MEQ/L (22.0-26.0); ABG TOTAL CO2 26.6 MEQ/L (22.0-29.0); ABG pH (ARTERIAL) 7.427 UNITS (7.350-7.450)
[2020-03-14 18:48] LABS: NT-PRO BNP 549 PG/ML (<125); TROPONIN I < 0.02 NG/ML (< 0.10)
[2020-03-19 07:37] LABS: ALBUMIN 2.3 GM/DL (3.2-5.2); ALT/SGPT 17 U/L (12-78); BILIRUBIN,TOTAL 0.4 MG/DL (0.2-1.0); BLOOD UREA NITROGEN 12 MG/DL (7-18); CALCIUM LEVEL 8.1 MG/DL (8.5-10.1); CARBON DIOXIDE LEVEL 27 MEQ/L (21-32); CHLORIDE LEVEL 108 MEQ/L (98-107); CREATININE FOR GFR 0.79 MG/DL (0.70-1.30); GLOMERULAR FILTRATION RATE > 60.0 (>56); GLUCOSE, FASTING 98 MG/DL (70-100); MAGNESIUM LEVEL 2.3 MG/DL (1.8-2.4); POTASSIUM SERUM 4.1 MEQ/L (3.5-5.1); SODIUM LEVEL 141 MEQ/L (136-145); TOTAL PROTEIN 5.5 GM/DL (6.4-8.2)
[2020-03-20 23:13] LABS: BLOOD UREA NITROGEN 18 MG/DL (7-18); CALCIUM LEVEL 8.8 MG/DL (8.5-10.1); CARBON DIOXIDE LEVEL 30 MEQ/L (21-32); CHLORIDE LEVEL 102 MEQ/L (98-107); CREATININE FOR GFR 0.97 MG/DL (0.70-1.30); GLOMERULAR FILTRATION RATE > 60.0 (>56); GLUCOSE, FASTING 163 MG/DL (70-100); POTASSIUM SERUM 3.6 MEQ/L (3.5-5.1); SODIUM LEVEL 140 MEQ/L (136-145); TROPONIN I < 0.02 NG/ML (< 0.10)
[2020-03-21 04:11] LABS: BLOOD UREA NITROGEN 13 MG/DL (7-18); GLUCOSE, FASTING 116 MG/DL (70-100)
[2020-03-21 04:11] LABS: ALBUMIN 2.9 GM/DL (3.2-5.2); ALT/SGPT 23 U/L (12-78); BILIRUBIN,TOTAL 0.8 MG/DL (0.2-1.0); BLOOD UREA NITROGEN 13 MG/DL (7-18); C REACTIVE PROTEIN QUANTITATIV 7.52 MG/DL (0.00-0.30); CALCIUM LEVEL 8.2 MG/DL (8.5-10.1); CARBON DIOXIDE LEVEL 28 MEQ/L (21-32); CHLORIDE LEVEL 103 MEQ/L (98-107); CREATININE FOR GFR 0.77 MG/DL (0.70-1.30); GLOMERULAR FILTRATION RATE > 60.0 (>56); GLUCOSE, FASTING 104 MG/DL (70-100); MAGNESIUM LEVEL 2.1 MG/DL (1.8-2.4); POTASSIUM SERUM 3.6 MEQ/L (3.5-5.1); SODIUM LEVEL 136 MEQ/L (136-145); TOTAL PROTEIN 6.2 GM/DL (6.4-8.2); TROPONIN I < 0.02 NG/ML (< 0.10)
[2020-03-21 04:12] LABS: ALBUMIN 3.2 GM/DL (3.2-5.2); ALT/SGPT 25 U/L (12-78); AMYLASE 25 U/L (25-115); BILIRUBIN,TOTAL 0.7 MG/DL (0.2-1.0); CALCIUM LEVEL 8.6 MG/DL (8.5-10.1); CARBON DIOXIDE LEVEL 29 MEQ/L (21-32); CHLORIDE LEVEL 105 MEQ/L (98-107); CREATININE FOR GFR 0.68 MG/DL (0.70-1.30); GLOMERULAR FILTRATION RATE > 60.0 (>56); LIPASE 23 U/L (73-393); POTASSIUM SERUM 3.5 MEQ/L (3.5-5.1); SODIUM LEVEL 139 MEQ/L (136-145); TOTAL PROTEIN 6.7 GM/DL (6.4-8.2); VITAMIN B12 LEVEL 287 PG/ML (247-911)
[2020-03-21 04:12] LABS: ALBUMIN 2.8 GM/DL (3.2-5.2); ALT/SGPT 21 U/L (12-78); BILIRUBIN,DIRECT 0.2 MG/DL (0.0-0.2); BILIRUBIN,TOTAL 0.8 MG/DL (0.2-1.0); BLOOD UREA NITROGEN 14 MG/DL (7-18); CALCIUM LEVEL 8.3 MG/DL (8.5-10.1); CARBON DIOXIDE LEVEL 28 MEQ/L (21-32); CHLORIDE LEVEL 104 MEQ/L (98-107); CREATININE FOR GFR 0.85 MG/DL (0.70-1.30); GLOMERULAR FILTRATION RATE > 60.0 (>56); GLUCOSE, FASTING 125 MG/DL (70-100); PHOSPHORUS LEVEL 3.6 MG/DL (2.5-4.9); POTASSIUM SERUM 3.8 MEQ/L (3.5-5.1); SODIUM LEVEL 138 MEQ/L (136-145)
[2020-03-21 14:14] LABS: ALBUMIN 2.8 GM/DL (3.2-5.2); ALT/SGPT 18 U/L (12-78); BILIRUBIN,DIRECT 0.2 MG/DL (0.0-0.2); BILIRUBIN,TOTAL 0.8 MG/DL (0.2-1.0); BLOOD UREA NITROGEN 18 MG/DL (7-18); CALCIUM LEVEL 8.4 MG/DL (8.5-10.1); CARBON DIOXIDE LEVEL 30 MEQ/L (21-32); CHLORIDE LEVEL 102 MEQ/L (98-107); CPK CREATINE PHOSPHOKINASE 67 U/L (39-308); CREATININE FOR GFR 0.98 MG/DL (0.70-1.30); GLOMERULAR FILTRATION RATE > 60.0 (>56); GLUCOSE, FASTING 94 MG/DL (70-100); PHOSPHORUS LEVEL 4.1 MG/DL (2.5-4.9); POTASSIUM SERUM 3.9 MEQ/L (3.5-5.1); SODIUM LEVEL 138 MEQ/L (136-145); TOTAL PROTEIN 6.1 GM/DL (6.4-8.2)
[2020-03-21 14:22] LABS: ALBUMIN 2.5 GM/DL (3.2-5.2); ALT/SGPT 17 U/L (12-78); BILIRUBIN,DIRECT 0.2 MG/DL (0.0-0.2); BILIRUBIN,TOTAL 0.4 MG/DL (0.2-1.0); BLOOD UREA NITROGEN 19 MG/DL (7-18); CALCIUM LEVEL 7.8 MG/DL (8.5-10.1); CARBON DIOXIDE LEVEL 28 MEQ/L (21-32); CHLORIDE LEVEL 106 MEQ/L (98-107); CREATININE FOR GFR 0.83 MG/DL (0.70-1.30); GLOMERULAR FILTRATION RATE > 60.0 (>56); GLUCOSE, FASTING 109 MG/DL (70-100); PHOSPHORUS LEVEL 3.1 MG/DL (2.5-4.9); POTASSIUM SERUM 3.8 MEQ/L (3.5-5.1); SODIUM LEVEL 139 MEQ/L (136-145); TOTAL PROTEIN 5.6 GM/DL (6.4-8.2)
[2020-03-22 16:53] LABS: BLOOD UREA NITROGEN 11 MG/DL (7-18); CREATININE FOR GFR 0.76 MG/DL (0.70-1.30); GLOMERULAR FILTRATION RATE > 60.0 (>56); GLUCOSE, FASTING 96 MG/DL (70-100); SODIUM LEVEL 137 MEQ/L (136-145)
[2020-03-22 16:54] LABS: CALCIUM LEVEL 8.1 MG/DL (8.5-10.1); CARBON DIOXIDE LEVEL 29 mmol/L (20-29); CHLORIDE LEVEL 105 MEQ/L (98-107); MAGNESIUM LEVEL 2.4 MG/DL (1.8-2.4)
[2020-03-26 03:19] LABS: ALBUMIN 2.2 GM/DL (3.2-5.2); ALT/SGPT 14 U/L (12-78); BILIRUBIN,TOTAL 0.4 MG/DL (0.2-1.0); BLOOD UREA NITROGEN 15 MG/DL (7-18); CARBON DIOXIDE LEVEL 26 MEQ/L (21-32); CHLORIDE LEVEL 108 MEQ/L (98-107); CREATININE FOR GFR 0.78 MG/DL (0.70-1.30); GLOMERULAR FILTRATION RATE > 60.0 (>56); GLUCOSE, FASTING 101 MG/DL (70-100); MAGNESIUM LEVEL 2.1 MG/DL (1.8-2.4); POTASSIUM SERUM 4.1 MEQ/L (3.5-5.1); SODIUM LEVEL 140 MEQ/L (136-145); TOTAL PROTEIN 5.1 GM/DL (6.4-8.2)
[2020-03-26 10:34] LABS: ALBUMIN 2.4 GM/DL (3.2-5.2); ALT/SGPT 15 U/L (12-78); BILIRUBIN,TOTAL 0.3 MG/DL (0.2-1.0); BLOOD UREA NITROGEN 11 MG/DL (7-18); CALCIUM LEVEL 8.3 MG/DL (8.5-10.1); CARBON DIOXIDE LEVEL 28 MEQ/L (21-32); CHLORIDE LEVEL 106 MEQ/L (98-107); CREATININE FOR GFR 0.79 MG/DL (0.70-1.30); GLOMERULAR FILTRATION RATE > 60.0 (>56); GLUCOSE, FASTING 100 MG/DL (70-100); MAGNESIUM LEVEL 2.1 MG/DL (1.8-2.4); POTASSIUM SERUM 4.6 MEQ/L (3.5-5.1); SODIUM LEVEL 137 MEQ/L (136-145); TOTAL PROTEIN 5.7 GM/DL (6.4-8.2)
[2020-03-26 13:02] LABS: ALBUMIN 2.3 GM/DL (3.2-5.2); ALT/SGPT 18 U/L (12-78); BILIRUBIN,TOTAL 0.3 MG/DL (0.2-1.0); BLOOD UREA NITROGEN 12 MG/DL (7-18); CALCIUM LEVEL 8.2 MG/DL (8.5-10.1); CARBON DIOXIDE LEVEL 27 MEQ/L (21-32); CHLORIDE LEVEL 109 MEQ/L (98-107); CREATININE FOR GFR 0.74 MG/DL (0.70-1.30); GLOMERULAR FILTRATION RATE > 60.0 (>56); GLUCOSE, FASTING 115 MG/DL (70-100); MAGNESIUM LEVEL 2.1 MG/DL (1.8-2.4); POTASSIUM SERUM 4.1 MEQ/L (3.5-5.1); SODIUM LEVEL 140 MEQ/L (136-145); TOTAL PROTEIN 5.6 GM/DL (6.4-8.2)
== END 2020-01-06 14:44 | disposition home or self-care (01) | DRG 300 ==
LOC: M ED 20:40 → M PCU 21:10
PROVIDERS: ADMIT Internal Medicine; ATTEND Internal Medicine
DX: I71.01 Dissection of thoracic aorta (principal); E87.2 Acidosis; I16.0 Hypertensive urgency; K59.00 Constipation, unspecified; F17.210 Nicotine dependence, cigarettes, uncomplicated; I10 Essential (primary) hypertension; Z79.899 Other long term (current) drug therapy; Z79.82 Long term (current) use of aspirin; J44.9 Chronic obstructive pulmonary disease, unspecified; E78.00 Pure hypercholesterolemia, unspecified; G47.00 Insomnia, unspecified

== ENCOUNTER → 2020-03-03 | Outpatient (REF) | payer MEDICARE, MEDICAID ==
[~2020-03-03] MED LIST changes: +ACET-897 PO; +AMLO1TAB25 PO; +ASPI81TAEC PO; +CLON0.2T PO; +CYCL5TAB PO; -HYDROMORPHONE HCL 0.5 MG/ 0.5 ML SYRINGE (J1170 PER 1) As Ordered ONE; -ISOVUE-370 76% 100ML VIAL As Ordered ONE; +LABE10TAB PO; +LABE20TAB PO; -LABETALOL 100MG/20ML VIAL As Ordered ONE; +LIDO5TD TD; -MORPHINE 4 MG/ML 1ML VIAL/SYRINGE (J2270) As Ordered ONE; +NICO21PAT TD; +OXYC1TAB23 PO; -hydrALAZINE 20MG/ML 1ML VIAL (J0360 PER 20MG) As Ordered ONE; -niCARdipine 40MG IN 200ML NACL IV BAG As Ordered ONE
[2020-03-03 17:30] LABS: HEMATOCRIT 38.3 % (42.0-52.0); HEMOGLOBIN 11.4 g/dl (13.5-17.5); MEAN CORPUSCULAR HEMOGLOBIN 26.9 pg (27.0-33.0); MEAN CORPUSCULAR HGB CONC 29.8 g/dl (32.0-36.5); MEAN CORPUSCULAR VOLUME 90.3 fl (80.0-96.0); PLATELET COUNT, AUTOMATED 402 10^3/uL (150-450); RED BLOOD COUNT 4.24 10^6/uL (4.30-6.10); WHITE BLOOD COUNT 10.9 10^3/uL (4.0-10.0)
[2020-03-03 17:54] LABS: ALT/SGPT 16 U/L (12-78); BILIRUBIN,TOTAL 0.3 MG/DL (0.2-1.0); BLOOD UREA NITROGEN 14 MG/DL (7-18); CALCIUM LEVEL 8.9 MG/DL (8.8-10.2); CARBON DIOXIDE LEVEL 27 MEQ/L (21-32); CHLORIDE LEVEL 106 MEQ/L (98-107); CREATININE FOR GFR 0.79 MG/DL (0.70-1.30); GLOMERULAR FILTRATION RATE > 60.0 (>49); GLUCOSE, FASTING 91 MG/DL (70-100); POTASSIUM SERUM 4.7 MEQ/L (3.5-5.1); SODIUM LEVEL 139 MEQ/L (136-145); TOTAL PROTEIN 6.7 GM/DL (6.4-8.2)
== END ==
LOC: M SFHCPLAZ 14:19
DX: I71.01 Dissection of thoracic aorta (principal)

== ENCOUNTER → 2020-04-18 | Outpatient (CLI) | payer MEDICARE, MEDICAID ==
[~2020-04-18] MED LIST changes: +LABE100T4 PO; -LABE10TAB PO
--- NOTE | 2020-04-21 00:27 | ECWPNPC ---
PATIENT NAME: TRAN BEAUCHAMP : 1960 GENDER: MALE VISIT DATE: 04/18/2020 DISCHARGE DATE: 04/18/20 1419 VISIT LOCKED DATE TIME: PHYSICIAN: GABRIEL LUNDY PHYSICIAN PAGER NO: ACTIVE RESOURCE: GABRIEL LUNDY REASON FOR APPOINTMENT 1. CHRONIC PAIN SYNDROME HISTORY OF PRESENT ILLNESS DEPRESSION SCREENING: PHQ-9 LITTLE INTEREST OR PLEASURE IN DOING THINGSNEARLY EVERY DAY FEELING DOWN, DEPRESSED, OR HOPELESSNEARLY EVERY DAY TROUBLE FALLING OR STAYING ASLEEP, OR SLEEPING TOO MUCHNEARLY EVERY DAY FEELING TIRED OR HAVING LITTLE ENERGYNEARLY EVERY DAY POOR APPETITE OR OVEREATING NEARLY EVERY DAY FEELING BAD ABOUT YOURSELF-OR THAT YOU ARE A FAILURE OR HAVE LET YOURSELF OR YOUR FAMILY DOWN NOT AT ALL TROUBLE CONCENTRATING ON THINGS, SUCH READING THE NEWSPAPER OR WATCHING TELEVISION NOT AT ALL MOVING OR SPEAKING SO SLOWLY THAT OTHER PEOPLE COULD HAVE NOTICED. OR THE OPPOSITE- BEING SO FIDGETY OR RESTLESS THAT YOU HAVE BEEN MOVING AROUND A LOT MORE THAN USUALNEARLY EVERY DAY THOUGHTS THAT YOU WOULD BE BETTER OFF , OR OF HURTING YOURSELF IN SOME WAY?NOT AT ALL TOTAL SCORE:18 INTERPRETATIONMODERATELY SEVERE DEPRESSION PHQ-2 (2015 EDITION) LITTLE INTEREST OR PLEASURE IN DOING THINGS?NEARLY EVERY DAY FEELING DOWN, DEPRESSED, OR HOPELESS?NEARLY EVERY DAY TOTAL SCORE6 GENERAL: PLEASANT 60-YEAR-OLD GENTLEMAN BEING REFERRED BY [facility], AIMEE ODOM D.O. FOR EVALUATION OF CHRONIC PAIN SYNDROME. PATIENT REPORTS THAT HE HAS HAD A LONG HISTORY OF GENERALIZED BACK PAIN AND JOINT PAIN. REPORTS THAT HE WAS ON DAILY SOMA AND HYDROCODONE WITH PROVIDERS IN THE PAST WHICH WAS VERY HELPFUL. HASN'T HAD CHRONIC PAIN MEDICATION IN SEVERAL MONTHS. RECENTLY ESTABLISHED PRIMARY CARE AT [facility]. WAS HOSPITALIZED IN DECEMBER 2019 FOR HYPERTENSIVE EMERGENCY AND FOUND TO HAVE A SMALL ASCENDING THORACIC AORTIC ANEURYSM DISSECTION THAT WAS REPAIRED ENDOVASCULARLY ON 02/22/2020 AT [facility]. 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 DENIES SUICIDAL OR HOMICIDAL IDEATIONS. OFFERED [facility] BUT PATIENT DECLINED. INFORMED PATIENT OF SERVICES AVAILABLE AT PAIN CENTER TO INCLUDE MEDICATION MANAGEMENT AND INTERVENTIONAL THERAPY IF DEEMED APPROPRIATE. PATIENT DOES NOT WISH TO HAVE ANY INJECTIONS. PATIENT HAS TRIED NONNARCOTIC PAIN MEDICATION WITHOUT RELIEF. ADVISED HIM THAT I WOULD NOT BE RECOMMENDING CHRONIC NARCOTIC THERAPY AND EDUCATED HIM ON RISKS ASSOCIATED WITH DAILY NARCOTIC USE. REPORTING NORMAL BOWEL AND BLADDER FUNCTION. STATES THAT SINCE HIS SURGERY A FEW WEEKS AGO HE HAS BEEN EXPERIENCING INCREASE IN HIS BACK PAIN. - - -. FALL RISK SCREENING: SCREENING :TWO OR MORE FALLS WITH INJURY IN THE PAST YEAR PAIN SCREENING: PATIENT HAS A COMPLAINT OF ACUTE OR CHRONIC PAIN :YES LOCATION OF PAIN:NECK, LOW BACK, LEFT HIP, RIGHT HIP, LEG(S) INTENSITY OF PAIN (SCALE OF 1 TO 10):10 WHAT DOES YOUR PAIN FEEL LIKE:ACHING, BURNING, SHARP, STABBING, THROBBING, SORE, SHOOTING DURATION:CONTINOUS, CONSTANT PAIN IS INCREASED BY:ACTIVITIES PAIN IS DECREASED BY:USE OF PAIN MEDICATIONS TREATMENT/MEDICATIONS USED TO MANAGE PAIN:OTC PAIN RELIEVERS LEVEL OF RELIEF FROM PAIN TREATMENTS IN THE PAST:0% PAIN HAS INTERFERED WITH THE FOLLOWING:BATHING/DRESSING, WALKING ABILITY, HOUSEWORK, SLEEP, TRANSPORTATION, TOILETING NURSING NOTE: - - -. PAIN CENTER INTAKE QUESTIONS: DO YOU HAVE A HISTORY OF MRSA? :NO DO YOU TAKE A BLOOD THINNERS? :NO DO YOU HAVE ANY BLEEDING DISORDERS? :NO ANY NEW NUMBNESS OR WEAKNESS IN YOUR LEGS OR ARMS? :YES LEGS, TOES, FINGERS ANY PACEMAKER,DEFIBRILLATOR, OR DORSAL COLUMN STIMULATOR? :NO DO YOU HAVE ANY RASHES OR OPEN SORES? :YES RIGHT LEG INCISION LEAKING ARE YOU ALLERGIC TO IV DYE? :NO ARE YOU DIABETIC? :NO ANY NEW PROBLEMS WITH YOUR MEDICATIONS? :NO HAVE YOU RECEIVED A VACCINE IN THE PAST 30 DAYS? :NO DO YOU PLAN TO RECEIVE A VACCINE IN THE NEXT 21 DAYS? :NO DO YOU NEED ANY PRESCRIPTION? :NO DO YOU TAKE ANY IMMUNOSUPPRESSIVE MEDICATIONS? :NO CURRENT MEDICATIONS TAKING ASPIRIN 81 81 MG TABLET DELAYED RELEASE 1 TABLET ORALLY ONCE A DAY TAKING CLONIDINE HCL 0.2 MG TABLET 1 TABLET ORALLY THREE TIMES DAILY TAKING LABETALOL HCL 200 MG TABLET 2 TABLETS ORALLY TWICE A DAY TAKING NICOTINE 21 MG/24HR PATCH 24 HOUR 1 PATCH TO SKIN TRANSDERMAL ONCE A DAY TAKING HYDROXYZINE HCL 50 MG TABLET 1 TABLET NEEDED ORALLY EVERY 6 HRS TAKING PANTOPRAZOLE SODIUM 20 MG TABLET DELAYED RELEASE 1 TABLET ORALLY ONCE A DAY TAKING ACETAMINOPHEN 500 MG TABLET 2 TABLET NEEDED ORALLY EVERY 6 HRS TAKING SENNA S 8.6-50 MG TABLET 1 TAB ORALLY TWICE DAILY NEEDED TAKING ATORVASTATIN CALCIUM 40 MG TABLET 1 TABLET ORALLY ONCE A DAY MEDICATION LIST REVIEWED AND RECONCILED WITH THE PATIENT PAST MEDICAL HISTORY AGORAPHOBIA COLITIS COPD HYPERLIPIDEMIA HTN STROKE ALLERGIES TRAMADOL HCL: ALLERGY SURGICAL HISTORY APPENDECTOMY RIGHT ARM AORTA REPAIR 02/22/20 FAMILY HISTORY FATHER: MOTHER: 8 BROTHER(S) , 2 SISTER(S) . 2 BROTHERS SURVIVING2 SISTERS SURVIVING. SOCIAL HISTORY GENERAL: TOBACCO USE ARE YOU A:CURRENT SMOKER HOW MANY CIGARETTES A DAY DO YOU SMOKE?6-10 PATIENT COUNSELED ON THE DANGERS OF TOBACCO USE AND URGED TO QUIT:04/18/2020 LATEX QUESTIONNAIRE LATEX ALLERGY : HAVE YOU EVER DEVELOPED ANY TYPE OF REACTION AFTER HANDLING LATEX PRODUCTS SUCH RUBBER GLOVES, CONDOMS, DIAPHRAGMS, BALLOONS, SOCKS, OR UNDERWEAR?NO LATEX ALLERGY : HAVE YOU EVER DEVELOPED ANY TYPE OF REACTION DURING OR AFTER DENTAL APPOINTMENT, VAGINAL/RECTAL EXAMINATION, SURGICAL PROCEDURE, OR ANY OTHER EXPOSURE?NO LATEX RISK : HAVE YOU EVER HAD ANY DIFFICULTY BREATHING OR HIVES AFTER EATING OR HANDLING ANY FRUITS, OR VEGETABLES; SUCH KIWI, BANANAS, STONE FRUITS, OR CHESTNUTSNO LATEX RISK : DO YOU HAVE A PREVIOUS PERSONAL HISTORY OF MORE THAN NINE SURGERIES, SPINA BIFIDA, OR REPEATED CATHERIZATIONS? NO LATEX RISK : ARE YOU FREQUENTLY EXPOSED TO LATEX PRODUCTS IN YOUR OCCUPATION?NO DATE ASKED : 04/17/2020 ALCOHOL SCREENING DID YOU HAVE A DRINK CONTAINING ALCOHOL IN THE PAST YEAR?NO POINTS0 INTERPRETATIONNEGATIVE RECREATIONAL DRUG USE DRUG USE?NO CAFFEINE CAFFEINE USE?YES HOW OFTEN AND HOW MUCH? 1/DAY SODA, 2/DAY COFFEE LEARNING BARRIERS / SPECIAL NEEDS BARRIERS TO LEARNING?NO HEARING IMPAIRED?NO VISION IMPAIRED?YES :CORRECTIVE LENSES COGNITIVELY IMPAIRED?NO READINESS TO LEARN?YES LEARNING PREFERENCES?NO LEARNING CAPABILITIES PRESENT?YES EMOTIONAL BARRIERS?NO SPECIAL DEVICES?NO DOMESTIC VIOLENCE DO YOU FEEL SAFE IN YOUR ENVIRONMENT?YES PAIN CLINIC PFS, CLERGY, PUBLIC HEALTH REFERRALS HAS THE PATIENT BEEN EDUCATED REGARDING HIS/HER PLAN OF CARE?YES HAS THE PATIENT BEEN EDUCATED REGARDING PAIN, THE RISK FOR PAIN, THE IMPORTANCE OF EFFECTIVE PAIN MANAGEMENT, AND THE PAIN ASSESSMENT PROCESS?YES ADVANCE DIRECTIVE ADVANCE DIRECTIVE DISCUSSED WITH PATIENT:YES NO, PT DECLINED HOSPITALIZATION/MAJOR DIAGNOSTIC PROCEDURE SURGERIES REVIEW OF SYSTEMS CONSTITUTIONAL: ANY RECENT FEVER NO . CHILLS NO . WEIGHT CHANGE OF UNKNOWN REASONS NO . GASTROENTEROLOGY: NEW UNEXPLAINABLE CHANGES IN BOWEL CONTROL NO . CONSTIPATION NO . GENITOURINARY: ANY NEW CHANGE IN BLADDER CONTROL? NO . NEUROLOGY: NEW ONSET DIZZINESS OR NEUROLOGICAL CHANGES NOT MENTIONED NO . NEW NUMBNESS OR PAIN PATTERNS NOT MENTIONED AND PERTINENT TO TODAY'S VISIT NO . CARDIOLOGY: NEW CHEST PRESSURE NO . NEW CHEST PAIN NO . RESPIRATORY: UNEXPLAINABLE COUGH NO . NEW SHORTNESS OF BREATH NO . VITAL SIGNS WT 136 LBS, HT 66 IN, BMI 21.95 INDEX, BP 163/85 MM HG, HR 74 /MIN, RR 16 /MIN, TEMP 97.7 F, OXYGEN SAT % 99, SAFE IN ENV? (Y/N) Y, REVIEWED BY: EM. EXAMINATION GENERAL EXAMINATION: GENERAL AWAKE,ALERT ,PLEAASANT . PSYCH AFFECT NORMAL . LUNGS: LUNG MONTOYA ARE CLEAR TO AUSCULTATION BILATERALLY. GOOD MOVEMENT OF AIR . HEART: S1, S2 IN A REGULAR RATE AND RHYTHM. NO SIGNIFICANT MURMURS, RUBS OR GALLOPS NOTED . MUSCULOSKELETAL: MUSCLE STRENGTH TESTING 4/5 BILATERAL LOWER EXTREMITIES. LUMBAR: TRIGGER POINTS:, ELICITED WITH PALPATION OVER LUMBAR PARAVERTEBRAL MUSCLES . PAIN IN THIS AREA IS AGGRAVATED WITH RANGE OF JOINT MOTION OF THE SPINE.. ASSESSMENTS CHRONIC PAIN SYNDROME - G89.4 (PRIMARY) TREATMENT OTHERS NOTES: DISCUSSED TREATMENT OPTIONS TO INCLUDE PHYSICAL THERAPY AND INJECTION THERAPY. HE WILL CALL US TO SCHEDULE FOLLOW-UP IF HE DECIDES TO USE THESE MODALITIES THAT I'VE SUGGESTED TO TREAT CHRONIC PAIN. DUE TO RECENT CARDIAC EVENT AND SURGERY ,I WOULD LEAVE ANY MEDICATION RECOMMENDATIONS FOR CHRONIC PAIN UP TO PRIMARY CARE. PROCEDURE CODES FA211 ESTABILISHED PATIENT [facility] CHARGE DISPOSITION & COMMUNICATION FOLLOW UP PATIENT WILL CALL IF NECESSARY ELECTRONICALLY SIGNED BY YANIRA DUNBAR ON 04/20/2020 AT 02:19 PM EST DISCLAIMER : THIS IS A VISIT SUMMARY EXTRACTED FROM THE [employer] CHART. IT IS NOT A COPY OF THE [employer] PROGRESS NOTE. TRINI
== END ==
LOC: M PAIN 13:00
PROVIDERS: ATTEND Nurse Practitioner Family
DX: G89.4 Chronic pain syndrome (principal); F40.00 Agoraphobia, unspecified; J44.9 Chronic obstructive pulmonary disease, unspecified; E78.5 Hyperlipidemia, unspecified; I10 Essential (primary) hypertension; F17.210 Nicotine dependence, cigarettes, uncomplicated; Z86.73 Personal history of transient ischemic attack (TIA), and cerebral infarction without residual deficits; Z79.82 Long term (current) use of aspirin; Z79.899 Other long term (current) drug therapy; Z88.5 Allergy status to narcotic agent

== ENCOUNTER → 2020-05-22 | Outpatient (CLI) | payer MEDICARE, MEDICAID ==
--- NOTE | 2020-05-23 07:41 | PFTRPT ---
Height: 67.00 Inches Weight: 135.00 Lbs BSA: 1.71 Diagnosis: J44.9 DATE: 05/22/2020 ORDERING PHYSICIAN: Dr. Steven Nuñez Pre and post bronchodilator studies have excellent technical quality. Forced vital capacity is normal. FEV1 out of proportion. Obstructive index is therefore reduced. Expiratory limit of the flow-volume loop is consistent with significant flow rate limitation. No significant bronchodilator response is identified. Total lung capacity is normal. Residual volume raises a question of air trapping. Diffusing capacity is severely reduced and does not correct for alveolar volume. No hemoglobin available for correction. Airway resistance and conductance are normal. IMPRESSION: At least moderate obstructive ventilatory impairment with underlying air trapping. Diffusing capacity impairment suggests emphysema. Please correlate clinically. MTDD
== END ==
LOC: M CARPUL 13:57
DX: J44.9 Chronic obstructive pulmonary disease, unspecified (principal); D64.9 Anemia, unspecified

== ENCOUNTER → 2020-05-22 | Outpatient (CLI) | payer MEDICARE, MEDICAID ==
[2020-05-22 15:47] LABS: FERRITIN 16 NG/ML (26-388); IRON (FE) 55 UG/DL (65-175); PERCENT SATURATION 13.5 % (19.7-50.0); TOTAL IRON BINDING CAPACITY 406 UG/DL (250-450)
[2020-05-22 16:34] LABS: HIV 1&2 SCREEN CENTAUR NEGATIVE (NEGATIVE)
== END ==
LOC: M LAB 14:48
DX: D64.9 Anemia, unspecified (principal)

== ENCOUNTER → 2021-04-06 | Outpatient (REF) | payer MEDICARE, MEDICAID ==
[~2021-04-06] MED LIST changes: +ASPI-569 PO; -ASPI81TAEC PO
== END ==
LOC: M SFHCPLAZ 15:32
PROVIDERS: ATTEND Family Medicine
DX: F40.01 Agoraphobia with panic disorder (principal); D50.9 Iron deficiency anemia, unspecified; I10 Essential (primary) hypertension

== ENCOUNTER 2021-10-10 10:36 | Emergency (ER) | payer MEDICARE, MEDICAID ==
[~2021-10-10] VITALS: Ht 170.2 cm; Wt 75.0 kg
[2021-10-10 10:40] VITALS: BP 200/83
[2021-10-10] MEDS ORDERED: SPIR12.9 (10:52)
[2021-10-10] MEDS ORDERED: PANT20TA6 (10:52)
[2021-10-10] MEDS ORDERED: RILU1TAB2 (10:52)
== END 2021-10-10 13:03 | disposition left against medical advice (07) ==
LOC: M ED 10:36
DX: Z53.21 Procedure and treatment not carried out due to patient leaving prior to being seen by health care provider (principal)

== ENCOUNTER 2021-12-19 03:08 | Emergency (ER) | payer MEDICARE, MEDICAID ==
[~2021-12-19 03:08] MED LIST changes: -LABE100T4 PO; +LABE100T6 PO; +PANT20TA6; +RILU1TAB2; +SPIR12.9
[2021-12-19 03:38] LABS: BASO # 0.1 10^3/uL (0.0-0.2); BASO % 0.5 % (0.0-1.0); EOS # 0.5 10^3/uL (0.0-0.5); EOS % 2.6 % (0.0-3.0); HEMATOCRIT 50.7 % (42.0-52.0); HEMOGLOBIN 16.1 g/dl (13.5-17.5); LYMPH # 3.1 10^3/uL (1.5-5.0); LYMPH % 17.1 % (24.0-44.0); MEAN CORPUSCULAR HEMOGLOBIN 27.1 pg (27.0-33.0); MEAN CORPUSCULAR HGB CONC 31.8 g/dl (32.0-36.5); MEAN CORPUSCULAR VOLUME 85.4 fl (80.0-96.0); MONO # 0.8 10^3/uL (0.0-0.8); MONO % 4.6 % (2.0-8.0); NEUTROPHILS # 13.3 10^3/uL (1.5-8.5); NEUTROPHILS % 74.6 % (36.0-66.0); PLATELET COUNT, AUTOMATED 358 10^3/uL (150-450); RED BLOOD COUNT 5.94 10^6/uL (4.30-6.10); WHITE BLOOD COUNT 17.9 10^3/uL (4.0-10.0)
[2021-12-19 04:16] LABS: ALBUMIN 3.7 GM/DL (3.2-5.2); ALT/SGPT 23 U/L (12-78); BILIRUBIN,DIRECT < 0.1 MG/DL (0.0-0.2); BILIRUBIN,TOTAL 0.3 MG/DL (0.2-1.0); BLOOD UREA NITROGEN 10 MG/DL (7-18); CARBON DIOXIDE LEVEL 25 MEQ/L (21-32); CHLORIDE LEVEL 104 MEQ/L (98-107); CREATININE FOR GFR 0.98 MG/DL (0.70-1.30); GLOMERULAR FILTRATION RATE > 60.0 (>49); GLUCOSE, FASTING 107 MG/DL (70-100); LIPASE 41 U/L (73-393); POTASSIUM SERUM 4.9 MEQ/L (3.5-5.1); SODIUM LEVEL 135 MEQ/L (136-145); TOTAL PROTEIN 7.7 GM/DL (6.4-8.2)
[2021-12-19] MEDS ORDERED: METHOCARBAMOL 1,000 MG/10 ML VIAL (J2800) IV ONE (05:10)
[2021-12-19] MEDS ORDERED: KETOROLAC 30 MG/ML 1ML VIAL IV ONE (05:10)
[2021-12-19] MEDS ORDERED: ISOVUE-370 76% 100ML VIAL As Ordered ONE (05:31)
[2021-12-19] MEDS ORDERED: LABETALOL 200 MG TAB PO ONE (09:00)
[2021-12-19] MEDS ORDERED: amLODIPine 5 MG TAB PO ONE (09:00)
[2021-12-19] MEDS ORDERED: ONDANSETRON 4MG 2ML VIAL IV ONE (09:00)
[2021-12-19 09:37] VITALS: BP 177/114
[2021-12-19] MEDS ORDERED: NICOTINE 21MG/24HR 1 EA TRANSDERMAL TD ONE (09:45)
[2021-12-19] MEDS ORDERED: MORPHINE 2 MG/ML 1ML VIAL IV ONE (10:10)
[2021-12-19 10:17] LABS: RSV AMPLIFICATION NEGATIVE (NEGATIVE)
[2021-12-19] MEDS ORDERED: HYDR-3713 PO (10:49)
[2021-12-19] MEDS ORDERED: ONDA4TAB6 PO (10:49)
[2021-12-19 11:05] VITALS: BP 194/102
== END 2021-12-19 11:20 | disposition home or self-care (01) ==
LOC: M ED 03:08 → EDBD 03:08 → M ED 11:20
DX: K52.9 Noninfective gastroenteritis and colitis, unspecified (principal); S22.31XA Fracture of one rib, right side, initial encounter for closed fracture; X58.XXXA Exposure to other specified factors, initial encounter; Y92.89 Other specified places as the place of occurrence of the external cause; G12.21 Amyotrophic lateral sclerosis; I10 Essential (primary) hypertension; J44.9 Chronic obstructive pulmonary disease, unspecified; E78.5 Hyperlipidemia, unspecified; Z86.73 Personal history of transient ischemic attack (TIA), and cerebral infarction without residual deficits; Z79.899 Other long term (current) drug therapy; Z79.82 Long term (current) use of aspirin; F17.200 Nicotine dependence, unspecified, uncomplicated
CPT/HCPCS: 74177; 80048; 80076; 83690; 85025; 87631; 93041; 96374; 96375; 99285; J1885; J2270; J2405; J2800; Q9967

== ENCOUNTER → 2022-02-27 | Outpatient (CLI) | payer MEDICARE, MEDICAID ==
[~2022-02-27] MED LIST changes: +HYDR-3713 PO; +ONDA4TAB6 PO
[2022-02-27 14:11] LABS: BASO # 0.1 10^3/uL (0.0-0.2); BASO % 0.5 % (0.0-1.0); EOS # 0.4 10^3/uL (0.0-0.5); EOS % 3.6 % (0.0-3.0); HEMATOCRIT 46.5 % (42.0-52.0); HEMOGLOBIN 14.7 g/dl (13.5-17.5); LYMPH # 3.6 10^3/uL (1.5-5.0); LYMPH % 29.2 % (24.0-44.0); MEAN CORPUSCULAR HEMOGLOBIN 27.9 pg (27.0-33.0); MEAN CORPUSCULAR HGB CONC 31.6 g/dl (32.0-36.5); MEAN CORPUSCULAR VOLUME 88.2 fl (80.0-96.0); MONO # 0.7 10^3/uL (0.0-0.8); MONO % 5.7 % (2.0-8.0); NEUTROPHILS # 7.4 10^3/uL (1.5-8.5); NEUTROPHILS % 60.5 % (36.0-66.0); PLATELET COUNT, AUTOMATED 257 10^3/uL (150-450); RED BLOOD COUNT 5.27 10^6/uL (4.30-6.10); WHITE BLOOD COUNT 12.3 10^3/uL (4.0-10.0)
[2022-02-27 15:04] LABS: ACETAMINOPHEN LEVEL < 2.0 UG/ML (10.0-30.0); ALBUMIN 3.6 GM/DL (3.2-5.2); ALT/SGPT 21 U/L (12-78); BILIRUBIN,TOTAL 0.4 MG/DL (0.2-1.0); BLOOD UREA NITROGEN 13 MG/DL (7-18); CALCIUM LEVEL 9.2 MG/DL (8.8-10.2); CARBON DIOXIDE LEVEL 24 MEQ/L (21-32); CHLORIDE LEVEL 107 MEQ/L (98-107); CREATININE FOR GFR 0.83 MG/DL (0.70-1.30); GLOMERULAR FILTRATION RATE > 60.0 (>49); GLUCOSE, FASTING 93 MG/DL (70-100); POTASSIUM SERUM 4.9 MEQ/L (3.5-5.1); SODIUM LEVEL 136 MEQ/L (136-145); TOTAL PROTEIN 7.5 GM/DL (6.4-8.2)
== END ==
LOC: M PLALAB 11:42
PROVIDERS: ATTEND Student in an Organized Health Care Education/Training Program
DX: M54.50 Low back pain, unspecified (principal)

== ENCOUNTER → 2022-05-30 | Outpatient (CLI) | payer MEDICARE, MEDICAID | LOC: M PLAIMG 12:39 | PROVIDERS: ATTEND Student in an Organized Health Care Education/Training Program | DX: M54.59 Other low back pain (principal); R10.2 Pelvic and perineal pain ==

== ENCOUNTER 2022-07-06 15:35 | Inpatient (IN) | payer MEDICARE, MEDICAID ==
[2022-07-06] VITALS (18 sets, daily range): BP systolic 133–203; BP diastolic 79–131; O2SAT 97
[~2022-07-06] VITALS: Ht 170.2 cm; Wt 59.4 kg
[~2022-07-06 15:35] MED LIST changes: -PANT20TA6; +PANT20TA6 PO; -SPIR12.9; +SPIR12.9 PO
[2022-07-06] MEDS ORDERED: MORPHINE 4 MG/ML 1ML VIAL IV ONE (15:45)
[2022-07-06 16:11] LABS: BASO # 0.1 10^3/uL (0.0-0.2); BASO % 0.5 % (0.0-1.0); EOS # 0.1 10^3/uL (0.0-0.5); EOS % 0.5 % (0.0-3.0); HEMATOCRIT 49.6 % (42.0-52.0); LYMPH # 1.9 10^3/uL (1.5-5.0); LYMPH % 12.9 % (24.0-44.0); MEAN CORPUSCULAR HEMOGLOBIN 28.5 pg (27.0-33.0); MEAN CORPUSCULAR HGB CONC 32.3 g/dl (32.0-36.5); MEAN CORPUSCULAR VOLUME 88.3 fl (80.0-96.0); MONO % 6.9 % (2.0-8.0); NEUTROPHILS # 11.8 10^3/uL (1.5-8.5); NEUTROPHILS % 78.7 % (36.0-66.0); PLATELET COUNT, AUTOMATED 276 10^3/uL (150-450); RED BLOOD COUNT 5.62 10^6/uL (4.30-6.10)
[2022-07-06] MEDS ORDERED: ISOVUE-370 76% 100ML VIAL As Ordered ONE (16:22)
[2022-07-06] MEDS ORDERED: ONDANSETRON 4MG 2ML VIAL IV PRN (17:35)
[2022-07-06] MEDS ORDERED: BISACODYL 10MG SUPP PR PRN (17:35)
[2022-07-06] MEDS ORDERED: ACETAMINOPHEN TAB 650MG DOSE (2X325MG) PO PRN (17:35)
[2022-07-06] MEDS ORDERED: LEVALBUTEROL 1.25MG 0.5ML CONCENTRATE NEB NEB PRN (17:35)
[2022-07-06 17:45] LABS: RSV AMPLIFICATION NEGATIVE (NEGATIVE)
[2022-07-06] MEDS ORDERED: LIDOCAINE 1% MDV 20ML VIAL As Ordered ONE ×2 (17:49→17:50)
[2022-07-06] MEDS ORDERED: MIDAZOLAM INJ 2MG/2ML VIAL As Ordered ONE (17:49)
[2022-07-06] MEDS ORDERED: flumazeniL 0.5MG/5ML VIAL As Ordered ONE (17:49)
[2022-07-06] MEDS ORDERED: MIDAZOLAM INJ 2MG/2ML VIAL IV STA ×2 (17:54→19:06)
[2022-07-06] MEDS ORDERED: LIDOCAINE 1% MDV 20ML VIAL SC PRN (17:55)
[2022-07-06] MEDS ORDERED: flumazeniL 0.5MG/5ML VIAL IV PRN (17:55)
[2022-07-06 18:13] LABS: BLOOD UREA NITROGEN 14 MG/DL (9-23); CALCIUM LEVEL 9.6 MG/DL (8.3-10.6); CARBON DIOXIDE LEVEL 25 MMOL/L (20-31); CHLORIDE LEVEL 107 MMOL/L (98-107); CREATININE FOR GFR 0.63 MG/DL (0.70-1.30); GLOMERULAR FILTRATION RATE > 60.0 (>49); GLUCOSE, FASTING 110 MG/DL (74-106); POTASSIUM SERUM 4.2 MMOL/L (3.5-5.1); SODIUM LEVEL 140 MMOL/L (136-145)
[2022-07-06] MEDS: KCL 20MEQ IN D5/NS 1000ML 1,000 ML IV SCH (18:38)
[2022-07-06] MEDS ORDERED: fentaNYL 100 MCG/2 ML INJECTION As Ordered ONE (18:39)
[2022-07-06] MEDS: KETOROLAC 30 MG/ML 1ML VIAL IV SCH ×2 (18:47→23:01)
[2022-07-06] MEDS ORDERED: flumazeniL 0.5MG/5ML VIAL IV STA (19:07)
[2022-07-06] MEDS ORDERED: fentaNYL 100 MCG/2 ML INJECTION IV ONE (19:10)
[2022-07-06] MEDS ORDERED: LIDOCAINE 1% MDV 20ML VIAL SC ONE (19:10)
[2022-07-06] MEDS: NICOTINE 21MG/24HR 1 EA TRANSDERMAL TD PRN (19:20)
[2022-07-06] MEDS ORDERED: MELO15TA28 PO (19:42)
[2022-07-06] MEDS ORDERED: LABE20TAB PO (19:42)
[2022-07-06] MEDS ORDERED: ALBU8.5H PO (19:42)
[2022-07-06] MEDS ORDERED: BACL5TAB2 PO (19:42)
[2022-07-06] MEDS ORDERED: BACL10TA2 PO (19:42)
[2022-07-06] MEDS ORDERED: AMLO1TAB24 PO (19:42)
[2022-07-06] MEDS ORDERED: GABA-1171 PO (19:42)
[2022-07-06] MEDS ORDERED: ALPR0.5T3 PO (19:42)
[2022-07-06] MEDS ORDERED: CYCL-707 PO (19:42)
[2022-07-06] MEDS ORDERED: HOME MED LIST COMPLETE! XX SCH (19:45)
[2022-07-06] MEDS: PERCOCET 5MG/325MG TAB PO PRN (19:48)
[2022-07-06] MEDS: DOCUSATE SODIUM 100MG CAPSULE PO SCH (19:49)
[2022-07-06] MEDS: HEPARIN SOD (PORCINE) 5000UNITS/ML 1ML VIAL/SYRINGE SC SCH (19:50)
[2022-07-06] MEDS: LEVALBUTEROL 1.25MG 0.5ML CONCENTRATE NEB NEB SCH (20:12)
[2022-07-06] MEDS: LABETALOL 200 MG TAB PO SCH (21:00)
[2022-07-06] MEDS ORDERED: BACLOFEN 10 MG TAB PO PRN (22:15)
[2022-07-06] MEDS ORDERED: ALPRAZolam 0.5 MG TAB PO PRN (22:15)
[2022-07-06] MEDS ORDERED: CYCLOBENZAPRINE 10MG TABLET PO PRN (22:15)
[2022-07-06] MEDS: GABAPENTIN 100 MG CAP PO SCH (23:01)
[2022-07-07] VITALS (12 sets, daily range): BP systolic 126–188; BP diastolic 81–100
[2022-07-07] MEDS: PERCOCET 5MG/325MG TAB PO PRN ×5 (00:17→16:23)
[2022-07-07] MEDS: LEVALBUTEROL 1.25MG 0.5ML CONCENTRATE NEB NEB SCH ×4 (01:32→19:37)
[2022-07-07 04:21] LABS: BASO % 0.2 % (0.0-1.0); EOS # 0.4 10^3/uL (0.0-0.5); EOS % 2.9 % (0.0-3.0); HEMATOCRIT 41.3 % (42.0-52.0); LYMPH # 3.6 10^3/uL (1.5-5.0); LYMPH % 29.2 % (24.0-44.0); MEAN CORPUSCULAR HEMOGLOBIN 28.1 pg (27.0-33.0); MEAN CORPUSCULAR HGB CONC 31.7 g/dl (32.0-36.5); MEAN CORPUSCULAR VOLUME 88.6 fl (80.0-96.0); MONO # 1.1 10^3/uL (0.0-0.8); MONO % 8.9 % (2.0-8.0); NEUTROPHILS # 7.2 10^3/uL (1.5-8.5); NEUTROPHILS % 58.5 % (36.0-66.0); PLATELET COUNT, AUTOMATED 225 10^3/uL (150-450); RED BLOOD COUNT 4.66 10^6/uL (4.30-6.10); WHITE BLOOD COUNT 12.2 10^3/uL (4.0-10.0)
[2022-07-07] MEDS: KCL 20MEQ IN D5/NS 1000ML 1,000 ML IV SCH (04:24)
[2022-07-07 04:29] LABS: HEMOGLOBIN 13.1 g/dl (13.5-17.5)
[2022-07-07 04:53] LABS: BLOOD UREA NITROGEN 13 MG/DL (9-23); CALCIUM LEVEL 8.2 MG/DL (8.3-10.6); CARBON DIOXIDE LEVEL 26 MMOL/L (20-31); CHLORIDE LEVEL 109 MMOL/L (98-107); CREATININE FOR GFR 0.65 MG/DL (0.70-1.30); GLOMERULAR FILTRATION RATE > 60.0 (>49); GLUCOSE, FASTING 102 MG/DL (74-106); MAGNESIUM LEVEL 1.8 MG/DL (1.8-2.4); PHOSPHORUS LEVEL 3.9 MG/DL (2.4-5.1); POTASSIUM SERUM 3.7 MMOL/L (3.5-5.1); SODIUM LEVEL 141 MMOL/L (136-145)
[2022-07-07] MEDS: KETOROLAC 30 MG/ML 1ML VIAL IV SCH ×3 (05:02→18:49)
[2022-07-07 06:20] LABS: ABG BASE EXCESS 0.3 (-2.0-2.0); ABG HCO3 24.4 MEQ/L (22.0-26.0); ABG O2 SATURATION 96.3 % (95.0-99.0); ABG PARTIAL PRESSURE CO2 37.7 mmHg (35.0-45.0); ABG PARTIAL PRESSURE O2 78.1 mmHg (75.0-100.0); ABG STANDARD HCO3 24.8 MEQ/L (22.0-26.0); ABG TOTAL CO2 25.6 MEQ/L (23.0-31.0); ABG pH (ARTERIAL) 7.429 UNITS (7.350-7.450)
[2022-07-07] MEDS: TIOTROPIUM INHALER/CAPSULE (SPIRIVA) INH SCH (07:35)
[2022-07-07] MEDS: GABAPENTIN 100 MG CAP PO SCH ×3 (08:11→20:37)
[2022-07-07] MEDS: HEPARIN SOD (PORCINE) 5000UNITS/ML 1ML VIAL/SYRINGE SC SCH ×2 (08:11→20:38)
[2022-07-07] MEDS: LABETALOL 200 MG TAB PO SCH ×2 (08:12→20:38)
[2022-07-07] MEDS: PANTOPRAZOLE 40MG TAB (PROTONIX) PO SCH (08:13)
[2022-07-07] MEDS: DOCUSATE SODIUM 100MG CAPSULE PO SCH ×2 (08:13→20:37)
[2022-07-07] MEDS: amLODIPine 5 MG TAB PO SCH (08:13)
[2022-07-07] MEDS: MOM 30ML SUSPENSION UDC PO SCH (08:13)
[2022-07-07] MEDS ORDERED: HEPARIN SOD (PORCINE) 5000UNITS/ML 1ML VIAL/SYRINGE SQ SCH (08:15)
[2022-07-07] MEDS: ALPRAZolam 0.5 MG TAB PO SCH ×4 (11:05→20:37)
[2022-07-07] MEDS: NICOTINE 21MG/24HR 1 EA TRANSDERMAL TD PRN (18:49)
[2022-07-08] VITALS (7 sets, daily range): BP systolic 118–186; BP diastolic 72–110
[2022-07-08] MEDS: KETOROLAC 30 MG/ML 1ML VIAL IV SCH ×4 (00:11→17:33)
[2022-07-08] MEDS: LEVALBUTEROL 1.25MG 0.5ML CONCENTRATE NEB NEB SCH ×2 (02:00→08:15)
[2022-07-08] MEDS: PERCOCET 5MG/325MG TAB PO PRN ×4 (05:24→21:13)
[2022-07-08 05:40] LABS: BASO % 0.2 % (0.0-1.0); EOS # 0.5 10^3/uL (0.0-0.5); EOS % 3.5 % (0.0-3.0); HEMATOCRIT 44.2 % (42.0-52.0); LYMPH % 30.3 % (24.0-44.0); MEAN CORPUSCULAR HEMOGLOBIN 28.5 pg (27.0-33.0); MEAN CORPUSCULAR HGB CONC 31.7 g/dl (32.0-36.5); MEAN CORPUSCULAR VOLUME 89.8 fl (80.0-96.0); MONO # 0.9 10^3/uL (0.0-0.8); MONO % 6.7 % (2.0-8.0); NEUTROPHILS # 7.7 10^3/uL (1.5-8.5); NEUTROPHILS % 58.7 % (36.0-66.0); PLATELET COUNT, AUTOMATED 251 10^3/uL (150-450); RED BLOOD COUNT 4.92 10^6/uL (4.30-6.10); WHITE BLOOD COUNT 13.1 10^3/uL (4.0-10.0)
[2022-07-08 06:06] LABS: BLOOD UREA NITROGEN 20 MG/DL (9-23); CALCIUM LEVEL 8.7 MG/DL (8.3-10.6); CARBON DIOXIDE LEVEL 25 MMOL/L (20-31); CHLORIDE LEVEL 107 MMOL/L (98-107); CREATININE FOR GFR 0.76 MG/DL (0.70-1.30); GLOMERULAR FILTRATION RATE > 60.0 (>49); GLUCOSE, FASTING 75 MG/DL (74-106); POTASSIUM SERUM 3.7 MMOL/L (3.5-5.1); SODIUM LEVEL 141 MMOL/L (136-145)
[2022-07-08] MEDS: TIOTROPIUM INHALER/CAPSULE (SPIRIVA) INH SCH (08:15)
[2022-07-08] MEDS: LABETALOL 200 MG TAB PO SCH ×2 (08:24→21:01)
[2022-07-08] MEDS: GABAPENTIN 100 MG CAP PO SCH ×3 (08:24→21:01)
[2022-07-08] MEDS: ALPRAZolam 0.5 MG TAB PO SCH ×3 (08:24→20:59)
[2022-07-08] MEDS: PANTOPRAZOLE 40MG TAB (PROTONIX) PO SCH (08:24)
[2022-07-08] MEDS: MOM 30ML SUSPENSION UDC PO SCH (08:25)
[2022-07-08] MEDS: HEPARIN SOD (PORCINE) 5000UNITS/ML 1ML VIAL/SYRINGE SC SCH ×2 (08:25→20:59)
[2022-07-08] MEDS: amLODIPine 5 MG TAB PO SCH (08:25)
[2022-07-08] MEDS: DOCUSATE SODIUM 100MG CAPSULE PO SCH ×2 (08:25→21:01)
[2022-07-08] MEDS ORDERED: FUROSEMIDE 20MG/2ML VIAL IV ONE (09:35)
[2022-07-08] MEDS ORDERED: methylPREDNISolone 40MG 1ML VIAL IV ONE (09:45)
[2022-07-08] MEDS: VALSARTAN 40MG TABLET (DIOVAN) PO SCH (11:14)
[2022-07-08] MEDS: IPRATROPIUM 0.5MG/ALBUTEROL 2.5MG INH SOL UD 3ML (DUONEB) NEB SCH ×4 (11:48→23:09)
[2022-07-08] MEDS ORDERED: CETIRIZINE (ZyrTEC) 10 MG TAB PO SCH (17:15)
[2022-07-08] MEDS: NICOTINE 21MG/24HR 1 EA TRANSDERMAL TD PRN (17:33)
[2022-07-09] VITALS: BP 117/81
[2022-07-09] MEDS: KETOROLAC 30 MG/ML 1ML VIAL IV SCH ×3 (00:02→11:09)
[2022-07-09] MEDS: IPRATROPIUM 0.5MG/ALBUTEROL 2.5MG INH SOL UD 3ML (DUONEB) NEB SCH ×3 (03:09→11:36)
[2022-07-09 04:00] VITALS: BP 126/86
[2022-07-09 05:30] LABS: BASO % 0.1 % (0.0-1.0); EOS # 0.2 10^3/uL (0.0-0.5); EOS % 1.5 % (0.0-3.0); HEMOGLOBIN 13.2 g/dl (13.5-17.5); LYMPH # 3.4 10^3/uL (1.5-5.0); LYMPH % 23.4 % (24.0-44.0); MEAN CORPUSCULAR HEMOGLOBIN 28.2 pg (27.0-33.0); MEAN CORPUSCULAR HGB CONC 32.2 g/dl (32.0-36.5); MEAN CORPUSCULAR VOLUME 87.6 fl (80.0-96.0); MONO # 1.3 10^3/uL (0.0-0.8); MONO % 8.5 % (2.0-8.0); NEUTROPHILS # 9.6 10^3/uL (1.5-8.5); NEUTROPHILS % 65.8 % (36.0-66.0); PLATELET COUNT, AUTOMATED 229 10^3/uL (150-450); RED BLOOD COUNT 4.68 10^6/uL (4.30-6.10); WHITE BLOOD COUNT 14.6 10^3/uL (4.0-10.0)
[2022-07-09 05:44] LABS: BLOOD UREA NITROGEN 35 MG/DL (9-23); CALCIUM LEVEL 8.3 MG/DL (8.3-10.6); CARBON DIOXIDE LEVEL 25 MMOL/L (20-31); CHLORIDE LEVEL 108 MMOL/L (98-107); CREATININE FOR GFR 0.96 MG/DL (0.70-1.30); GLOMERULAR FILTRATION RATE > 60.0 (>49); GLUCOSE, FASTING 87 MG/DL (74-106); POTASSIUM SERUM 3.7 MMOL/L (3.5-5.1); SODIUM LEVEL 141 MMOL/L (136-145)
[2022-07-09] MEDS: ALPRAZolam 0.5 MG TAB PO SCH ×2 (06:12→11:14)
[2022-07-09 08:00] VITALS: BP 162/95
[2022-07-09] MEDS: DOCUSATE SODIUM 100MG CAPSULE PO SCH (08:13)
[2022-07-09] MEDS: MOM 30ML SUSPENSION UDC PO SCH (08:13)
[2022-07-09] MEDS: LABETALOL 200 MG TAB PO SCH (08:14)
[2022-07-09] MEDS: PANTOPRAZOLE 40MG TAB (PROTONIX) PO SCH (08:14)
[2022-07-09] MEDS: GABAPENTIN 100 MG CAP PO SCH (08:14)
[2022-07-09] MEDS: amLODIPine 5 MG TAB PO SCH (08:14)
[2022-07-09] MEDS: HEPARIN SOD (PORCINE) 5000UNITS/ML 1ML VIAL/SYRINGE SC SCH (08:15)
[2022-07-09] MEDS: PERCOCET 5MG/325MG TAB PO PRN (08:17)
[2022-07-09] MEDS ORDERED: DIOV40TA PO (10:39)
[2022-07-09] MEDS ORDERED: OXYC1TAB23 PO ×2 (10:39→10:40)
[2022-07-09 11:10] VITALS: BP 130/83
[2022-07-09] MEDS: VALSARTAN 40MG TABLET (DIOVAN) PO SCH (11:10)
== END 2022-07-09 12:14 | disposition home or self-care (01) | DRG 200 ==
LOC: EDBD 15:35 → M ED 15:35 → M ED INP 17:35 → M PCU 17:35 → M ICU 18:03 → M PCU 07-07 15:52
PROVIDERS: ADMIT Internal Medicine; ATTEND Internal Medicine
PROC: 0W9B30Z Drainage of Left Pleural Cavity with Drainage Device, Percutaneous Approach (ICD-10-PCS; principal; 2022-07-08)
DX: S27.0XXA Traumatic pneumothorax, initial encounter (principal); J90 Pleural effusion, not elsewhere classified; G12.21 Amyotrophic lateral sclerosis; S22.42XA Multiple fractures of ribs, left side, initial encounter for closed fracture; W01.0XXA Fall on same level from slipping, tripping and stumbling without subsequent striking against object, initial encounter; Y92.9 Unspecified place or not applicable; I10 Essential (primary) hypertension; E78.5 Hyperlipidemia, unspecified; J44.9 Chronic obstructive pulmonary disease, unspecified; Z86.73 Personal history of transient ischemic attack (TIA), and cerebral infarction without residual deficits; F40.02 Agoraphobia without panic disorder; F41.9 Anxiety disorder, unspecified; Z90.49 Acquired absence of other specified parts of digestive tract; F17.210 Nicotine dependence, cigarettes, uncomplicated; I16.0 Hypertensive urgency; K21.9 Gastro-esophageal reflux disease without esophagitis; Z20.822 Contact with and (suspected) exposure to COVID-19; Z79.82 Long term (current) use of aspirin; Z79.899 Other long term (current) drug therapy; R26.89 Other abnormalities of gait and mobility; Z95.828 Presence of other vascular implants and grafts

== ENCOUNTER → 2022-07-25 | Outpatient (CLI) | payer MEDICARE, MEDICAID ==
[~2022-07-25] MED LIST changes: +ALBU8.5H PO; +ALPR0.5T3 PO; +AMLO1TAB24 PO; +BACL10TA2 PO; +BACL5TAB2 PO; +CYCL-707 PO; +DIOV40TA PO; +GABA-1171 PO; +MELO15TA28 PO
== END ==
LOC: M PLAIMG 11:08
PROVIDERS: ATTEND Thoracic Surgery (Cardiothoracic Vascular Surgery)
DX: J90 Pleural effusion, not elsewhere classified (principal); S22.42XS Multiple fractures of ribs, left side, sequela

== ENCOUNTER 2022-09-22 12:34 | Inpatient (IN) | payer MEDICARE, MEDICAID ==
[~2022-09-22] VITALS: Ht 170.2 cm; Wt 67.8 kg
[2022-09-22] MEDS ORDERED: ALBUTEROL SULFATE 2.5MG/0.5ML INH NEB SOLN INH ONE (13:00)
[2022-09-22] MEDS ORDERED: IPRATROPIUM 0.5MG/ALBUTEROL 2.5MG INH SOL UD 3ML (DUONEB) NEB ONE ×2 (13:00→20:00)
[2022-09-22] MEDS ORDERED: BELB150M BUC (13:03)
[2022-09-22] MEDS ORDERED: IPRA0.00 NEB (13:03)
[2022-09-22] MEDS ORDERED: KETOROLAC 30 MG/ML 1ML VIAL IV ONE ×2 (14:20→20:00)
[2022-09-22] MEDS ORDERED: ISOVUE-370 76% 100ML VIAL As Ordered ONE (14:40)
[2022-09-22 16:26] LABS: BASO % 0.2 % (0.0-1.0); EOS # 0.1 10^3/uL (0.0-0.5); EOS % 0.3 % (0.0-3.0); HEMATOCRIT 35.8 % (42.0-52.0); HEMOGLOBIN 11.6 g/dl (13.5-17.5); LYMPH # 2.3 10^3/uL (1.5-5.0); LYMPH % 14.3 % (24.0-44.0); MEAN CORPUSCULAR HEMOGLOBIN 28.4 pg (27.0-33.0); MEAN CORPUSCULAR HGB CONC 32.4 g/dl (32.0-36.5); MEAN CORPUSCULAR VOLUME 87.5 fl (80.0-96.0); MONO % 6.3 % (2.0-8.0); NEUTROPHILS # 12.6 10^3/uL (1.5-8.5); NEUTROPHILS % 78.4 % (36.0-66.0); PLATELET COUNT, AUTOMATED 304 10^3/uL (150-450); RED BLOOD COUNT 4.09 10^6/uL (4.30-6.10); WHITE BLOOD COUNT 16.1 10^3/uL (4.0-10.0)
[2022-09-22 16:48] LABS: ALBUMIN 2.2 G/DL (3.2-5.2); ALKALINE PHOSPHATASE 71 U/L (46-116); ALT/SGPT < 9 U/L (7.0-40); AST/SGOT 15 U/L (<34); BILIRUBIN,TOTAL 0.5 MG/DL (0.3-1.2); BLOOD UREA NITROGEN 11 MG/DL (9-23); CALCIUM LEVEL 8.5 MG/DL (8.3-10.6); CARBON DIOXIDE LEVEL 23 MMOL/L (20-31); CHLORIDE LEVEL 101 MMOL/L (98-107); CREATININE FOR GFR 0.79 MG/DL (0.70-1.30); GLOMERULAR FILTRATION RATE > 60.0 (>49); GLUCOSE, FASTING 91 MG/DL (74-106); POTASSIUM SERUM 4.1 MMOL/L (3.5-5.1); SODIUM LEVEL 131 MMOL/L (136-145); TOTAL PROTEIN 5.4 G/DL (5.7-8.2)
[2022-09-22 16:54] LABS: RSV AMPLIFICATION NEGATIVE (NEGATIVE)
[2022-09-22] MEDS ORDERED: cefTRIAXone SOD 2 GM in D5W MINI-BAG PLUS 50 ML IV ONE (18:25)
[2022-09-22] MEDS ORDERED: IPRATROPIUM 0.5MG/ALBUTEROL 2.5MG INH SOL UD 3ML (DUONEB) NEB PRN (19:10)
[2022-09-22] MEDS ORDERED: BUPR1FIL35 SL (19:49)
[2022-09-22] MEDS ORDERED: BACL10TA2 PO (19:57)
[2022-09-22] MEDS ORDERED: DOXYCYCLINE HYCLATE 100 MG in D5W MINI-BAG PLUS 100 ML IV SCH (20:00)
[2022-09-22] MEDS ORDERED: LIDOCAINE 5% (LIDODERM) PATCH TD ONE (20:00)
[2022-09-22] MEDS ORDERED: HOME MED LIST COMPLETE! XX SCH (20:00)
[2022-09-22 20:37] LABS: VENOUS BASE EXCESS -2.3 (-2.0-2.0); VENOUS HCO3 21.8 MMOL/L (23.0-27.0); VENOUS O2 SATURATION 92.5 % (60.0-80.0); VENOUS PARTIAL PRESSURE CO2 35.5 mmHg (38.0-50.0); VENOUS PARTIAL PRESSURE O2 60.7 mmHg (30.0-50.0); VENOUS PH 7.406 UNITS (7.330-7.430); VENOUS STANDARD HCO3 22.5 MMOL/L; VENOUS TOTAL CO2 22.9 MMOL/L (24.0-28.0)
[2022-09-22 20:53] LABS: INR 1.23; PROTHROMBIN TIME 15.8 SECONDS (12.5-14.5)
[2022-09-22 20:54] LABS: PARTIAL THROMBOPLASTIN TIME 36.8 SECONDS (24.8-34.2)
[2022-09-22] MEDS ORDERED: CYCLOBENZAPRINE 10MG TABLET PO PRN (21:10)
[2022-09-22] MEDS ORDERED: BACLOFEN 10 MG TAB PO PRN (21:10)
[2022-09-22] MEDS ORDERED: ENTER DRUG NAME HERE (PATIENT'S OWN MED) PO SCH (21:10)
[2022-09-22 21:15] LABS: PERCENT SATURATION 3.7 % (19.7-50.0)
[2022-09-22 21:17] LABS: FERRITIN 218.8 NG/ML (10.5-307.3); FOLATE 7.36 NG/ML (>5.4)
[2022-09-22] MEDS ORDERED: BACLOFEN 5MG PER 1/2 TABLET PO PRN (21:25)
[2022-09-22 21:37] LABS: C REACTIVE PROTEIN QUANTITATIV 30.6 MG/DL (<1.0)
[2022-09-22 21:40] VITALS: BP 142/74
[2022-09-22] MEDS ORDERED: ALBUTEROL 90 MCG/ACT 8GM HFA INHALER INH PRN (21:45)
[2022-09-22] MEDS ORDERED: NICOTINE 21MG/24HR 1 EA TRANSDERMAL TD PRN (21:45)
[2022-09-22] MEDS: HEPARIN SOD (PORCINE) 5000UNITS/ML 1ML VIAL/SYRINGE SC SCH (21:55)
[2022-09-22] MEDS: ALPRAZolam 0.5 MG TAB PO PRN (21:56)
[2022-09-22] MEDS: guaiFENesin ER 600 MG TAB PO SCH (21:56)
[2022-09-22] MEDS: LABETALOL 200 MG TAB PO SCH (21:56)
[2022-09-22] MEDS: metroNIDAZOLE 500 MG in IV 1 EA IV SCH (21:56)
[2022-09-22] MEDS: GABAPENTIN 100 MG CAP PO SCH (21:56)
[2022-09-22 22:00] VITALS: O2SAT 97
[2022-09-22 23:00] VITALS: O2SAT 90
[2022-09-22 23:34] VITALS: BP 112/69
[2022-09-22 23:35] VITALS: O2SAT 91
[2022-09-23] VITALS (20 sets, daily range): BP systolic 100–132; BP diastolic 58–73; O2SAT 90–94
[2022-09-23] MEDS: UNRESOLVED PATIENT OWN MED ORDER XX SCH (00:01)
[2022-09-23] MEDS ORDERED: MORPHINE 2 MG/ML 1ML VIAL IV ONE (03:00)
[2022-09-23] MEDS: metroNIDAZOLE 500 MG in IV 1 EA IV SCH (06:01)
[2022-09-23] MEDS: HEPARIN SOD (PORCINE) 5000UNITS/ML 1ML VIAL/SYRINGE SC SCH ×3 (06:02→22:01)
[2022-09-23 06:13] LABS: HEMATOCRIT 38.5 % (42.0-52.0); HEMOGLOBIN 12.5 g/dl (13.5-17.5); MEAN CORPUSCULAR HEMOGLOBIN 28.1 pg (27.0-33.0); MEAN CORPUSCULAR HGB CONC 32.5 g/dl (32.0-36.5); MEAN CORPUSCULAR VOLUME 86.5 fl (80.0-96.0); PLATELET COUNT, AUTOMATED 363 10^3/uL (150-450); RED BLOOD COUNT 4.45 10^6/uL (4.30-6.10); WHITE BLOOD COUNT 25.9 10^3/uL (4.0-10.0)
[2022-09-23 06:41] LABS: ALBUMIN 1.9 G/DL (3.2-5.2); ALKALINE PHOSPHATASE 80 U/L (46-116); ALT/SGPT < 9 U/L (7.0-40); AST/SGOT 12 U/L (<34); BILIRUBIN,TOTAL 0.3 MG/DL (0.3-1.2); BLOOD UREA NITROGEN 16 MG/DL (9-23); CALCIUM LEVEL 8.2 MG/DL (8.3-10.6); CARBON DIOXIDE LEVEL 22 MMOL/L (20-31); CHLORIDE LEVEL 101 MMOL/L (98-107); CREATININE FOR GFR 0.93 MG/DL (0.70-1.30); GLOMERULAR FILTRATION RATE > 60.0 (>49); GLUCOSE, FASTING 69 MG/DL (74-106); MAGNESIUM LEVEL 1.6 MG/DL (1.8-2.4); POTASSIUM SERUM 4.5 MMOL/L (3.5-5.1); SODIUM LEVEL 135 MMOL/L (136-145); TOTAL PROTEIN 5.3 G/DL (5.7-8.2)
[2022-09-23] MEDS ORDERED: VANCOMYCIN HCL 1,000 MG, VIAL MATE ADAPTER 1 EACH in NS 250 ML IV SCH (07:45)
[2022-09-23] MEDS ORDERED: PIPERACILLIN/TAZOBACTAM SOD 3.375 GM in D5W MINI-BAG PLUS 50 ML IV SCH (07:45)
[2022-09-23 07:48] LABS: URIC ACID 2.9 MG/DL (3.7-9.2)
[2022-09-23] MEDS: IPRATROPIUM 0.5MG/ALBUTEROL 2.5MG INH SOL UD 3ML (DUONEB) NEB PRN (07:50)
[2022-09-23] MEDS: TIOTROPIUM INHALER/CAPSULE (SPIRIVA) INH SCH (07:50)
[2022-09-23] MEDS ORDERED: MAG SULF 1GM/100ML (MAG RUN) 1 GM in IV 1 EA IV ONE (08:00)
[2022-09-23] MEDS ORDERED: PIPERACILLIN/TAZOBACTAM SOD 4.5 GM in D5W MINI-BAG PLUS 50 ML IV SCH (08:00)
[2022-09-23 08:21] LABS: ERYTHROCYTE SEDIMENTATION RATE 117 mm/hr (0-20)
[2022-09-23] MEDS ORDERED: DOXYCYCLINE HYCLATE 100MG TABLET PO SCH (09:00)
[2022-09-23] MEDS: amLODIPine 5 MG TAB PO SCH (09:00)
[2022-09-23] MEDS: LABETALOL 200 MG TAB PO SCH ×2 (09:00→20:28)
[2022-09-23] MEDS: VANCOMYCIN HCL 750 MG, VIAL MATE ADAPTER 1 EACH in D5W 250 ML IV SCH ×2 (09:33→22:01)
[2022-09-23] MEDS: MORPHINE 2 MG/ML 1ML VIAL IV PRN ×5 (09:34→23:09)
[2022-09-23] MEDS: GABAPENTIN 100 MG CAP PO SCH ×3 (09:35→20:28)
[2022-09-23] MEDS: PANTOPRAZOLE 20 MG TAB PO SCH (09:35)
[2022-09-23] MEDS: guaiFENesin ER 600 MG TAB PO SCH ×2 (09:35→20:28)
[2022-09-23] MEDS ORDERED: VANCOMYCIN HCL 750 MG, VIAL MATE ADAPTER 1 EACH in D5W 250 ML IV ONE (11:00)
[2022-09-23] MEDS: PIPERACILLIN/TAZOBACTAM SOD 4.5 GM in D5W MINI-BAG PLUS 50 ML IV SCH ×2 (11:51→17:10)
[2022-09-23] MEDS: NICOTINE 21MG/24HR 1 EA TRANSDERMAL TD SCH (11:52)
[2022-09-23 12:43] LABS: PH BODY FLUID 6.995 UNITS (NOT ESTABLISHED); SOURCE, BODY FLUID pH PLEURAL
[2022-09-23 12:48] LABS: APPEARANCE, BODY FLUID CLOUDY (CLEAR); PLEURAL FL COLOR PALE YELLOW (COLORLESS); SOURCE, BODY FLUID PLEURAL; SOURCE, BODY FLUID ALBUMIN PLEURAL
[2022-09-23 12:53] LABS: SOURCE, BODY FLUID GLUCOSE PLEURAL; SOURCE, BODY FLUID TRIG PLEURAL; TRIGLYCERIDE, BODY FLUID 50 MG/DL (NOT ESTABLISHED)
[2022-09-23 12:55] LABS: AMYLASE, BODY FLUID < 20 U/L (NOT ESTABLISHED); CHOLESTEROL, BODY FLUID 62 MG/DL (NOT ESTABLISHED); SOURCE, BODY FLUID AMYLASE PLEURAL; SOURCE, BODY FLUID CHOL PLEURAL; SOURCE, BODY FLUID TOT PROTEIN PLEURAL
[2022-09-23 13:04] LABS: LDH, BODY FLUID > 700 U/L (NOT ESTABLISHED); SOURCE, BODY FLUID LDH PLEURAL
[2022-09-23] MEDS ORDERED: cefTRIAXone SOD 1 GM in D5W MINI-BAG PLUS 50 ML IV SCH (18:00)
[2022-09-24] VITALS (35 sets, daily range): BP systolic 102–131; BP diastolic 62–76; O2SAT 86–96
[2022-09-24] MEDS: UNRESOLVED PATIENT OWN MED ORDER XX SCH (00:01)
[2022-09-24] MEDS: PIPERACILLIN/TAZOBACTAM SOD 4.5 GM in D5W MINI-BAG PLUS 50 ML IV SCH ×5 (00:57→23:36)
[2022-09-24 06:07] LABS: ABG BASE EXCESS 0.8 (-2.0-2.0); ABG HCO3 24.1 MMOL/L (22.0-26.0); ABG PARTIAL PRESSURE CO2 34.6 mmHg (35.0-45.0); ABG PARTIAL PRESSURE O2 70.9 mmHg (75.0-100.0); ABG STANDARD HCO3 25.1 MMOL/L. (22.0-26.0); ABG TOTAL CO2 25.2 MMOL/L (23.0-31.0); ABG pH (ARTERIAL) 7.461 UNITS (7.350-7.450)
[2022-09-24] MEDS ORDERED: BACLOFEN 10 MG TAB PO PRN (06:10)
[2022-09-24] MEDS: HEPARIN SOD (PORCINE) 5000UNITS/ML 1ML VIAL/SYRINGE SC SCH ×3 (06:11→21:31)
[2022-09-24] MEDS ORDERED: PILL CUTTER 1 EACH XX PRN (06:15)
[2022-09-24] MEDS: IPRATROPIUM 0.5MG/ALBUTEROL 2.5MG INH SOL UD 3ML (DUONEB) NEB PRN (06:18)
[2022-09-24 06:29] LABS: HEMATOCRIT 40.5 % (42.0-52.0); HEMOGLOBIN 13.2 g/dl (13.5-17.5); MEAN CORPUSCULAR HGB CONC 32.6 g/dl (32.0-36.5); MEAN CORPUSCULAR VOLUME 85.8 fl (80.0-96.0); PLATELET COUNT, AUTOMATED 416 10^3/uL (150-450); RED BLOOD COUNT 4.72 10^6/uL (4.30-6.10); WHITE BLOOD COUNT 29.7 10^3/uL (4.0-10.0)
[2022-09-24 06:56] LABS: ALBUMIN 1.9 G/DL (3.2-5.2); ALKALINE PHOSPHATASE 94 U/L (46-116); ALT/SGPT < 9 U/L (7.0-40); AST/SGOT 14 U/L (<34); BILIRUBIN,TOTAL 0.3 MG/DL (0.3-1.2); BLOOD UREA NITROGEN 19 MG/DL (9-23); CARBON DIOXIDE LEVEL 24 MMOL/L (20-31); CHLORIDE LEVEL 100 MMOL/L (98-107); CREATININE FOR GFR 0.77 MG/DL (0.70-1.30); GLOMERULAR FILTRATION RATE > 60.0 (>49); GLUCOSE, FASTING 95 MG/DL (74-106); MAGNESIUM LEVEL 2.2 MG/DL (1.8-2.4); POTASSIUM SERUM 4.2 MMOL/L (3.5-5.1); SODIUM LEVEL 134 MMOL/L (136-145); TOTAL PROTEIN 5.4 G/DL (5.7-8.2)
[2022-09-24] MEDS: NICOTINE 21MG/24HR 1 EA TRANSDERMAL TD SCH (08:14)
[2022-09-24] MEDS: GABAPENTIN 100 MG CAP PO SCH ×3 (08:16→21:32)
[2022-09-24] MEDS: MORPHINE 2 MG/ML 1ML VIAL IV PRN ×2 (08:16→12:36)
[2022-09-24] MEDS: amLODIPine 5 MG TAB PO SCH (08:16)
[2022-09-24] MEDS: LABETALOL 200 MG TAB PO SCH ×2 (08:16→20:42)
[2022-09-24] MEDS: PANTOPRAZOLE 20 MG TAB PO SCH (08:16)
[2022-09-24] MEDS: guaiFENesin ER 600 MG TAB PO SCH ×2 (08:16→21:32)
[2022-09-24] MEDS: TIOTROPIUM INHALER/CAPSULE (SPIRIVA) INH SCH (09:01)
[2022-09-24] MEDS: ALPRAZolam 0.5 MG TAB PO PRN ×2 (10:40→21:39)
[2022-09-24] MEDS: VANCOMYCIN HCL 1,000 MG, VIAL MATE ADAPTER 1 EACH in D5W 250 ML IV SCH ×2 (10:40→21:25)
[2022-09-24] MEDS: ACETAMINOPHEN TAB 650MG DOSE (2X325MG) PO PRN (10:49)
[2022-09-24] MEDS ORDERED: ALTEPLASE 2MG/2ML VIAL XX ONE (14:40)
[2022-09-24] MEDS ORDERED: BISACODYL 10MG SUPP PR PRN (15:30)
[2022-09-24] MEDS ORDERED: ONDANSETRON 4MG 2ML VIAL IV PRN (15:30)
[2022-09-24] MEDS ORDERED: ALTEPLASE 2MG/2ML VIAL INTRAPLEU ONE (16:00)
[2022-09-24] MEDS: KETOROLAC 30 MG/ML 1ML VIAL IV SCH ×2 (16:33→21:32)
[2022-09-24] MEDS: PERCOCET 5MG/325MG TAB PO PRN (18:14)
[2022-09-24] MEDS: DOCUSATE SODIUM 100MG CAPSULE PO SCH (21:32)
[2022-09-25] VITALS (34 sets, daily range): BP systolic 102–149; BP diastolic 57–70; O2SAT 88–97
[2022-09-25] MEDS: PERCOCET 5MG/325MG TAB PO PRN ×4 (02:23→21:56)
[2022-09-25] MEDS: KETOROLAC 30 MG/ML 1ML VIAL IV SCH ×4 (03:51→21:54)
[2022-09-25] MEDS: HEPARIN SOD (PORCINE) 5000UNITS/ML 1ML VIAL/SYRINGE SC SCH ×3 (05:46→21:55)
[2022-09-25] MEDS: PIPERACILLIN/TAZOBACTAM SOD 4.5 GM in D5W MINI-BAG PLUS 50 ML IV SCH ×3 (05:46→17:49)
[2022-09-25 06:17] LABS: BASO # 0.1 10^3/uL (0.0-0.2); BASO % 0.3 % (0.0-1.0); EOS # 0.5 10^3/uL (0.0-0.5); EOS % 1.7 % (0.0-3.0); HEMATOCRIT 36.6 % (42.0-52.0); HEMOGLOBIN 11.9 g/dl (13.5-17.5); LYMPH # 2.4 10^3/uL (1.5-5.0); LYMPH % 8.7 % (24.0-44.0); MEAN CORPUSCULAR HEMOGLOBIN 28.6 pg (27.0-33.0); MEAN CORPUSCULAR HGB CONC 32.5 g/dl (32.0-36.5); MONO # 1.5 10^3/uL (0.0-0.8); MONO % 5.6 % (2.0-8.0); NEUTROPHILS # 22.3 10^3/uL (1.5-8.5); NEUTROPHILS % 81.9 % (36.0-66.0); PLATELET COUNT, AUTOMATED 376 10^3/uL (150-450); RED BLOOD COUNT 4.16 10^6/uL (4.30-6.10); WHITE BLOOD COUNT 27.3 10^3/uL (4.0-10.0)
[2022-09-25 06:59] LABS: ALBUMIN 1.6 G/DL (3.2-5.2); ALKALINE PHOSPHATASE 91 U/L (46-116); ALT/SGPT < 9 U/L (7.0-40); AST/SGOT 20 U/L (<34); BILIRUBIN,TOTAL 0.2 MG/DL (0.3-1.2); BLOOD UREA NITROGEN 31 MG/DL (9-23); CALCIUM LEVEL 7.7 MG/DL (8.3-10.6); CARBON DIOXIDE LEVEL 23 MMOL/L (20-31); CHLORIDE LEVEL 104 MMOL/L (98-107); CREATININE FOR GFR 0.98 MG/DL (0.70-1.30); GLOMERULAR FILTRATION RATE > 60.0 (>49); GLUCOSE, FASTING 92 MG/DL (74-106); POTASSIUM SERUM 3.7 MMOL/L (3.5-5.1); SODIUM LEVEL 138 MMOL/L (136-145)
[2022-09-25] MEDS: LABETALOL 200 MG TAB PO SCH ×2 (09:00→21:00)
[2022-09-25] MEDS: amLODIPine 5 MG TAB PO SCH (09:00)
[2022-09-25] MEDS: MOM 30ML SUSPENSION UDC PO SCH ×2 (09:00→09:37)
[2022-09-25] MEDS: DOCUSATE SODIUM 100MG CAPSULE PO SCH ×2 (09:37→21:58)
[2022-09-25] MEDS: GABAPENTIN 100 MG CAP PO SCH ×3 (09:41→21:58)
[2022-09-25] MEDS: guaiFENesin ER 600 MG TAB PO SCH (09:41)
[2022-09-25] MEDS: NICOTINE 21MG/24HR 1 EA TRANSDERMAL TD SCH (09:42)
[2022-09-25] MEDS: PANTOPRAZOLE 20 MG TAB PO SCH (10:00)
[2022-09-25] MEDS: ALPRAZolam 0.5 MG TAB PO PRN (10:00)
[2022-09-25] MEDS: TIOTROPIUM INHALER/CAPSULE (SPIRIVA) INH SCH (10:13)
[2022-09-25] MEDS: VANCOMYCIN HCL 1,000 MG, VIAL MATE ADAPTER 1 EACH in D5W 250 ML IV SCH ×2 (10:34→21:53)
[2022-09-25] MEDS: BELBUCA 150 MCG XX SCH ×2 (11:02→21:00)
[2022-09-25] MEDS: ACETAMINOPHEN TAB 650MG DOSE (2X325MG) PO PRN (13:01)
[2022-09-25 14:09] LABS: BODY FLUID CULTURE Not indicated. (.); LEGIONELLA ANTIGEN URINE Negative (Negative); ORGANISM ID Not indicated. (.); SPECIMEN SOURCE Urine (.); URINE STREP PNEUMONIAE ANTIGEN Negative (Negative)
[2022-09-26] VITALS (27 sets, daily range): BP systolic 104–141; BP diastolic 63–78; O2SAT 87–96
[2022-09-26] MEDS: KETOROLAC 30 MG/ML 1ML VIAL IV SCH ×4 (03:23→21:21)
[2022-09-26 05:23] LABS: BASO # 0.1 10^3/uL (0.0-0.2); BASO % 0.4 % (0.0-1.0); EOS # 0.6 10^3/uL (0.0-0.5); EOS % 2.7 % (0.0-3.0); HEMATOCRIT 37.8 % (42.0-52.0); HEMOGLOBIN 12.2 g/dl (13.5-17.5); LYMPH # 2.8 10^3/uL (1.5-5.0); LYMPH % 12.1 % (24.0-44.0); MEAN CORPUSCULAR HGB CONC 32.3 g/dl (32.0-36.5); MEAN CORPUSCULAR VOLUME 86.9 fl (80.0-96.0); MONO % 8.2 % (2.0-8.0); NEUTROPHILS # 17.3 10^3/uL (1.5-8.5); NEUTROPHILS % 75.3 % (36.0-66.0); PLATELET COUNT, AUTOMATED 436 10^3/uL (150-450); RED BLOOD COUNT 4.35 10^6/uL (4.30-6.10)
[2022-09-26 05:45] LABS: BLOOD UREA NITROGEN 31 MG/DL (9-23); CALCIUM LEVEL 7.6 MG/DL (8.3-10.6); CARBON DIOXIDE LEVEL 26 MMOL/L (20-31); CHLORIDE LEVEL 104 MMOL/L (98-107); CREATININE FOR GFR 0.98 MG/DL (0.70-1.30); GLOMERULAR FILTRATION RATE > 60.0 (>49); GLUCOSE, FASTING 104 MG/DL (74-106); POTASSIUM SERUM 3.5 MMOL/L (3.5-5.1); SODIUM LEVEL 139 MMOL/L (136-145)
[2022-09-26 05:50] LABS: MONO # 1.9 10^3/uL (0.0-0.8)
[2022-09-26] MEDS: HEPARIN SOD (PORCINE) 5000UNITS/ML 1ML VIAL/SYRINGE SC SCH ×3 (06:17→21:23)
[2022-09-26] MEDS: PIPERACILLIN/TAZOBACTAM SOD 4.5 GM in D5W MINI-BAG PLUS 50 ML IV SCH ×5 (06:21→17:11)
[2022-09-26] MEDS: ALPRAZolam 0.5 MG TAB PO PRN ×3 (07:57→21:22)
[2022-09-26] MEDS: TIOTROPIUM INHALER/CAPSULE (SPIRIVA) INH SCH (08:00)
[2022-09-26] MEDS: LABETALOL 200 MG TAB PO SCH ×2 (09:00→20:09)
[2022-09-26] MEDS: MOM 30ML SUSPENSION UDC PO SCH (09:00)
[2022-09-26] MEDS: amLODIPine 5 MG TAB PO SCH (09:00)
[2022-09-26] MEDS: GABAPENTIN 100 MG CAP PO SCH ×3 (09:19→20:06)
[2022-09-26] MEDS: DOCUSATE SODIUM 100MG CAPSULE PO SCH ×2 (09:19→20:06)
[2022-09-26] MEDS: PANTOPRAZOLE 20 MG TAB PO SCH (09:19)
[2022-09-26] MEDS: NICOTINE 21MG/24HR 1 EA TRANSDERMAL TD SCH (09:20)
[2022-09-26] MEDS: BELBUCA 150 MCG XX SCH ×2 (09:22→20:06)
[2022-09-26] MEDS: IPRATROPIUM 0.5MG/ALBUTEROL 2.5MG INH SOL UD 3ML (DUONEB) NEB PRN (10:09)
[2022-09-26] MEDS: VANCOMYCIN HCL 1,000 MG, VIAL MATE ADAPTER 1 EACH in D5W 250 ML IV SCH (10:19)
[2022-09-26] MEDS: PERCOCET 5MG/325MG TAB PO PRN ×2 (10:26→17:30)
[2022-09-27] VITALS (28 sets, daily range): BP systolic 112–139; BP diastolic 65–97; O2SAT 88–95
[2022-09-27] MEDS: PERCOCET 5MG/325MG TAB PO PRN ×3 (00:37→18:52)
[2022-09-27] MEDS: KETOROLAC 30 MG/ML 1ML VIAL IV SCH ×4 (03:50→22:25)
[2022-09-27 05:51] LABS: BASO # 0.1 10^3/uL (0.0-0.2); BASO % 0.4 % (0.0-1.0); EOS # 0.6 10^3/uL (0.0-0.5); EOS % 2.8 % (0.0-3.0); HEMATOCRIT 35.9 % (42.0-52.0); HEMOGLOBIN 11.6 g/dl (13.5-17.5); LYMPH # 2.6 10^3/uL (1.5-5.0); LYMPH % 13.5 % (24.0-44.0); MEAN CORPUSCULAR HGB CONC 32.3 g/dl (32.0-36.5); MEAN CORPUSCULAR VOLUME 86.5 fl (80.0-96.0); MONO % 9.6 % (2.0-8.0); NEUTROPHILS % 71.7 % (36.0-66.0); PLATELET COUNT, AUTOMATED 479 10^3/uL (150-450); RED BLOOD COUNT 4.15 10^6/uL (4.30-6.10); WHITE BLOOD COUNT 19.5 10^3/uL (4.0-10.0)
[2022-09-27] MEDS: PIPERACILLIN/TAZOBACTAM SOD 4.5 GM in D5W MINI-BAG PLUS 50 ML IV SCH ×5 (06:04→18:43)
[2022-09-27] MEDS: HEPARIN SOD (PORCINE) 5000UNITS/ML 1ML VIAL/SYRINGE SC SCH ×3 (06:04→22:25)
[2022-09-27 06:18] LABS: BLOOD UREA NITROGEN 25 MG/DL (9-23); CALCIUM LEVEL 7.3 MG/DL (8.3-10.6); CARBON DIOXIDE LEVEL 26 MMOL/L (20-31); CHLORIDE LEVEL 106 MMOL/L (98-107); CREATININE FOR GFR 0.89 MG/DL (0.70-1.30); GLOMERULAR FILTRATION RATE > 60.0 (>49); GLUCOSE, FASTING 129 MG/DL (74-106); POTASSIUM SERUM 3.6 MMOL/L (3.5-5.1); SODIUM LEVEL 142 MMOL/L (136-145)
[2022-09-27 06:33] LABS: MONO # 1.9 10^3/uL (0.0-0.8)
[2022-09-27] MEDS: TIOTROPIUM INHALER/CAPSULE (SPIRIVA) INH SCH (07:35)
[2022-09-27] MEDS: ALPRAZolam 0.5 MG TAB PO PRN ×2 (07:43→18:44)
[2022-09-27] MEDS: DOCUSATE SODIUM 100MG CAPSULE PO SCH ×2 (09:00→21:00)
[2022-09-27] MEDS: MOM 30ML SUSPENSION UDC PO SCH (09:00)
[2022-09-27] MEDS: PANTOPRAZOLE 20 MG TAB PO SCH (09:13)
[2022-09-27] MEDS: NICOTINE 21MG/24HR 1 EA TRANSDERMAL TD SCH (09:13)
[2022-09-27] MEDS: GABAPENTIN 100 MG CAP PO SCH ×3 (09:13→20:58)
[2022-09-27] MEDS: LABETALOL 200 MG TAB PO SCH ×2 (09:13→20:38)
[2022-09-27] MEDS: amLODIPine 5 MG TAB PO SCH (09:13)
[2022-09-27] MEDS: BELBUCA 150 MCG XX SCH ×2 (09:21→20:58)
[2022-09-27] MEDS: ACETAMINOPHEN TAB 650MG DOSE (2X325MG) PO PRN (18:44)
[2022-09-28] VITALS (13 sets, daily range): BP systolic 101–141; BP diastolic 58–72; O2SAT 88–94
[2022-09-28] MEDS: PIPERACILLIN/TAZOBACTAM SOD 4.5 GM in D5W MINI-BAG PLUS 50 ML IV SCH ×3 (00:38→12:26)
[2022-09-28] MEDS: KETOROLAC 30 MG/ML 1ML VIAL IV SCH ×3 (04:29→15:16)
[2022-09-28] MEDS: ALPRAZolam 0.5 MG TAB PO PRN ×2 (04:29→10:32)
[2022-09-28] MEDS: HEPARIN SOD (PORCINE) 5000UNITS/ML 1ML VIAL/SYRINGE SC SCH ×2 (06:00→15:15)
[2022-09-28] MEDS: PERCOCET 5MG/325MG TAB PO PRN ×2 (07:17→12:27)
[2022-09-28 07:28] LABS: BASO # 0.1 10^3/uL (0.0-0.2); BASO % 0.6 % (0.0-1.0); EOS # 0.6 10^3/uL (0.0-0.5); EOS % 3.1 % (0.0-3.0); HEMATOCRIT 34.6 % (42.0-52.0); HEMOGLOBIN 10.8 g/dl (13.5-17.5); LYMPH # 2.4 10^3/uL (1.5-5.0); LYMPH % 12.7 % (24.0-44.0); MEAN CORPUSCULAR HGB CONC 31.2 g/dl (32.0-36.5); MEAN CORPUSCULAR VOLUME 89.6 fl (80.0-96.0); MONO % 9.5 % (2.0-8.0); NEUTROPHILS # 13.3 10^3/uL (1.5-8.5); PLATELET COUNT, AUTOMATED 484 10^3/uL (150-450); RED BLOOD COUNT 3.86 10^6/uL (4.30-6.10); WHITE BLOOD COUNT 18.9 10^3/uL (4.0-10.0)
[2022-09-28 07:52] LABS: BLOOD UREA NITROGEN 19 MG/DL (9-23); CALCIUM LEVEL 7.8 MG/DL (8.3-10.6); CARBON DIOXIDE LEVEL 28 MMOL/L (20-31); CHLORIDE LEVEL 106 MMOL/L (98-107); CREATININE FOR GFR 0.91 MG/DL (0.70-1.30); GLOMERULAR FILTRATION RATE > 60.0 (>49); GLUCOSE, FASTING 110 MG/DL (74-106); MONO # 1.8 10^3/uL (0.0-0.8); POTASSIUM SERUM 3.9 MMOL/L (3.5-5.1); SODIUM LEVEL 141 MMOL/L (136-145)
[2022-09-28] MEDS: TIOTROPIUM INHALER/CAPSULE (SPIRIVA) INH SCH (08:00)
[2022-09-28] MEDS: DOCUSATE SODIUM 100MG CAPSULE PO SCH (08:35)
[2022-09-28] MEDS: MOM 30ML SUSPENSION UDC PO SCH (08:36)
[2022-09-28] MEDS: amLODIPine 5 MG TAB PO SCH (08:36)
[2022-09-28] MEDS: GABAPENTIN 100 MG CAP PO SCH ×2 (08:36→15:15)
[2022-09-28] MEDS: LABETALOL 200 MG TAB PO SCH (08:36)
[2022-09-28] MEDS: NICOTINE 21MG/24HR 1 EA TRANSDERMAL TD SCH (08:36)
[2022-09-28] MEDS: BELBUCA 150 MCG XX SCH (08:38)
[2022-09-28] MEDS: PANTOPRAZOLE 20 MG TAB PO SCH (09:00)
[2022-09-28] MEDS ORDERED: CYANOCOBALAMIN 500 MCG TAB PO SCH (09:00)
[2022-09-28] MEDS ORDERED: AMOX875T2 PO (16:52)
== END 2022-09-28 17:51 | disposition left against medical advice (07) | DRG 177 ==
LOC: M ED 12:34 → M ED INP 19:07 → M PCU 21:15
PROVIDERS: ADMIT Internal Medicine; ATTEND Internal Medicine
PROC: 0W993ZZ Drainage of Right Pleural Cavity, Percutaneous Approach (ICD-10-PCS; principal; 2022-09-23 14:30)
PROC: 0W9930Z Drainage of Right Pleural Cavity with Drainage Device, Percutaneous Approach (ICD-10-PCS; 2022-09-24)
DX: J86.9 Pyothorax without fistula (principal); J96.01 Acute respiratory failure with hypoxia; J90 Pleural effusion, not elsewhere classified; G12.21 Amyotrophic lateral sclerosis; J44.0 Chronic obstructive pulmonary disease with (acute) lower respiratory infection; S22.42XA Multiple fractures of ribs, left side, initial encounter for closed fracture; S50.01XA Contusion of right elbow, initial encounter; Z66 Do not resuscitate; I10 Essential (primary) hypertension; E78.5 Hyperlipidemia, unspecified; G89.29 Other chronic pain; K21.9 Gastro-esophageal reflux disease without esophagitis; R29.6 Repeated falls; F40.02 Agoraphobia without panic disorder; F41.9 Anxiety disorder, unspecified; F17.210 Nicotine dependence, cigarettes, uncomplicated; W01.0XXA Fall on same level from slipping, tripping and stumbling without subsequent striking against object, initial encounter; Y92.009 Unspecified place in unspecified non-institutional (private) residence as the place of occurrence of the external cause; Z86.73 Personal history of transient ischemic attack (TIA), and cerebral infarction without residual deficits; Z90.49 Acquired absence of other specified parts of digestive tract; Z79.899 Other long term (current) drug therapy; Z88.5 Allergy status to narcotic agent; Z88.8 Allergy status to other drugs, medicaments and biological substances; Z20.822 Contact with and (suspected) exposure to COVID-19; E83.42 Hypomagnesemia

== ENCOUNTER → 2022-10-25 | Outpatient (CLI) | payer MEDICARE, MEDICAID ==
[~2022-10-25] MED LIST changes: +AMOX875T2 PO; +BELB150M BUC; +BUPR1FIL35 SL; +IPRA0.00 NEB
[2022-10-25 20:18] LABS: BASO # 0.1 10^3/uL (0.0-0.2); BASO % 0.5 % (0.0-1.0); EOS # 0.5 10^3/uL (0.0-0.5); EOS % 3.6 % (0.0-3.0); HEMATOCRIT 37.4 % (42.0-52.0); HEMOGLOBIN 11.5 g/dl (13.5-17.5); LYMPH # 3.8 10^3/uL (1.5-5.0); LYMPH % 28.1 % (24.0-44.0); MEAN CORPUSCULAR HEMOGLOBIN 26.1 pg (27.0-33.0); MEAN CORPUSCULAR HGB CONC 30.7 g/dl (32.0-36.5); MONO % 7.6 % (2.0-8.0); NEUTROPHILS # 8.1 10^3/uL (1.5-8.5); NEUTROPHILS % 59.8 % (36.0-66.0); PLATELET COUNT, AUTOMATED 181 10^3/uL (150-450); WHITE BLOOD COUNT 13.5 10^3/uL (4.0-10.0)
== END ==
LOC: M PLALAB 15:14
PROVIDERS: ATTEND Student in an Organized Health Care Education/Training Program
DX: R91.8 Other nonspecific abnormal finding of lung field (principal); Z98.890 Other specified postprocedural states

== ENCOUNTER 2022-12-07 22:54 | Inpatient (IN) | payer MEDICARE, MEDICAID ==
[~2022-12-07] VITALS: Ht 170.2 cm; Wt 61.7 kg
[2022-12-07] MEDS: IPRATROPIUM 0.5MG/ALBUTEROL 2.5MG INH SOL UD 3ML (DUONEB) NEB PRN ×2 (23:43→23:44)
[2022-12-07 23:45] LABS: ABG BASE EXCESS 6.8 (-2.0-2.0); ABG HCO3 30.8 MMOL/L (22.0-26.0); ABG O2 SATURATION 93.7 % (95.0-99.0); ABG PARTIAL PRESSURE CO2 41.6 mmHg (35.0-45.0); ABG PARTIAL PRESSURE O2 63.1 mmHg (75.0-100.0); ABG STANDARD HCO3 30.6 MMOL/L. (22.0-26.0); ABG TOTAL CO2 32.1 MMOL/L (23.0-31.0); ABG pH (ARTERIAL) 7.487 UNITS (7.350-7.450)
[2022-12-08] VITALS (49 sets, daily range): BP systolic 86–209; BP diastolic 58–124; TEMP 97.2–99.1; O2SAT 61–100
[2022-12-08 00:09] LABS: BASO % 0.2 % (0.0-1.0); EOS % 0.1 % (0.0-3.0); HEMATOCRIT 37.4 % (42.0-52.0); HEMOGLOBIN 11.1 g/dl (13.5-17.5); LYMPH # 1.9 10^3/uL (1.5-5.0); LYMPH % 8.7 % (24.0-44.0); MEAN CORPUSCULAR HEMOGLOBIN 23.1 pg (27.0-33.0); MEAN CORPUSCULAR HGB CONC 29.7 g/dl (32.0-36.5); MEAN CORPUSCULAR VOLUME 77.9 fl (80.0-96.0); MONO # 0.8 10^3/uL (0.0-0.8); MONO % 3.7 % (2.0-8.0); NEUTROPHILS # 18.7 10^3/uL (1.5-8.5); NEUTROPHILS % 86.5 % (36.0-66.0); PLATELET COUNT, AUTOMATED 337 10^3/uL (150-450); WHITE BLOOD COUNT 21.6 10^3/uL (4.0-10.0)
[2022-12-08 00:21] LABS: ALBUMIN 1.9 G/DL (3.2-5.2); ALKALINE PHOSPHATASE 171 U/L (46-116); ALT/SGPT 17 U/L (7.0-40); AST/SGOT 34 U/L (<34); BILIRUBIN,DIRECT 0.1 MG/DL (<0.4); BILIRUBIN,TOTAL 0.3 MG/DL (0.3-1.2); BLOOD UREA NITROGEN 22 MG/DL (9-23); CALCIUM LEVEL 8.4 MG/DL (8.3-10.6); CARBON DIOXIDE LEVEL 29 MMOL/L (20-31); CHLORIDE LEVEL 101 MMOL/L (98-107); CREATININE FOR GFR 0.48 MG/DL (0.70-1.30); GLOMERULAR FILTRATION RATE > 60.0 (>49); GLUCOSE, FASTING 110 MG/DL (74-106); POTASSIUM SERUM 4.3 MMOL/L (3.5-5.1); SODIUM LEVEL 139 MMOL/L (136-145); TOTAL PROTEIN 7.2 G/DL (5.7-8.2)
[2022-12-08] MEDS ORDERED: AZITHROMYCIN INJ 500 MG, VIAL MATE ADAPTER 1 EACH in NS 250 ML IV ONE (01:15)
[2022-12-08] MEDS ORDERED: cefTRIAXone SOD 1 GM in D5W MINI-BAG PLUS 50 ML IV ONE (01:15)
[2022-12-08] MEDS ORDERED: BUPR1FIL35 SL (02:14)
[2022-12-08] MEDS ORDERED: HOME MED LIST COMPLETE! XX SCH (02:15)
[2022-12-08] MEDS ORDERED: SODIUM CHLORIDE 0.9% 1000ML IV SCH (03:10)
[2022-12-08] MEDS ORDERED: NS 1,000 ML IV SCH (03:10)
[2022-12-08] MEDS ORDERED: VANCOMYCIN HCL 730 MG in IV FLUID PLACE HOLDER 1 EA IV SCH (03:10)
[2022-12-08] MEDS ORDERED: ONDANSETRON 4MG 2ML VIAL IV PRN (03:10)
[2022-12-08] MEDS ORDERED: ALBUTEROL SULFATE 2.5MG/0.5ML INH NEB SOLN INH PRN (03:10)
[2022-12-08] MEDS ORDERED: VANCOMYCIN HCL 1,000 MG, VIAL MATE ADAPTER 1 EACH in D5W 250 ML IV ONE ×3 (04:00→11:00)
[2022-12-08] MEDS: HEPARIN SOD (PORCINE) 5000UNITS/ML 1ML VIAL/SYRINGE SC SCH ×3 (05:42→21:28)
[2022-12-08] MEDS ORDERED: PIPERACILLIN/TAZOBACTAM SOD 3.375 GM in D5W MINI-BAG PLUS 50 ML IV SCH (06:00)
[2022-12-08] MEDS ORDERED: LIDOCAINE 1% MDV 20ML VIAL As Ordered ONE (07:19)
[2022-12-08] MEDS ORDERED: MIDAZOLAM INJ 2MG/2ML VIAL As Ordered ONE ×2 (07:20→07:21)
[2022-12-08] MEDS ORDERED: MIDAZOLAM INJ 2MG/2ML VIAL IV ONE (07:45)
[2022-12-08] MEDS ORDERED: SODIUM CHLORIDE 0.9% 1000ML IV ONE ×2 (07:45→07:50)
[2022-12-08] MEDS ORDERED: D5W/0.9% SODIUM CHLORIDE 1,000 ML IV SCH (08:00)
[2022-12-08] MEDS ORDERED: BISACODYL 10MG SUPP PR PRN (08:00)
[2022-12-08] MEDS ORDERED: LEVALBUTEROL 1.25MG/3ML NEB SOLN NEB PRN (08:00)
[2022-12-08 08:06] LABS: ABG BASE EXCESS 0.3 (-2.0-2.0); ABG HCO3 26.7 MMOL/L (22.0-26.0); ABG O2 SATURATION 89.3 % (95.0-99.0); ABG PARTIAL PRESSURE CO2 51.2 mmHg (35.0-45.0); ABG PARTIAL PRESSURE O2 59.6 mmHg (75.0-100.0); ABG STANDARD HCO3 24.6 MMOL/L. (22.0-26.0); ABG TOTAL CO2 28.3 MMOL/L (23.0-31.0); ABG pH (ARTERIAL) 7.335 UNITS (7.350-7.450)
[2022-12-08 08:20] LABS: MEAN CORPUSCULAR HEMOGLOBIN 23.9 pg (27.0-33.0); MEAN CORPUSCULAR HGB CONC 28.6 g/dl (32.0-36.5); MEAN CORPUSCULAR VOLUME 83.5 fl (80.0-96.0); PLATELET COUNT, AUTOMATED 158 10^3/uL (150-450); WHITE BLOOD COUNT 17.2 10^3/uL (4.0-10.0)
[2022-12-08 08:25] LABS: HEMATOCRIT 19.2 % (42.0-52.0)
[2022-12-08] MEDS: IPRATROPIUM 0.5MG/ALBUTEROL 2.5MG INH SOL UD 3ML (DUONEB) INH SCH ×3 (08:25→19:59)
[2022-12-08 08:27] LABS: HEMOGLOBIN 5.5 g/dl (13.5-17.5)
[2022-12-08] MEDS ORDERED: LIDOCAINE 1% MDV 20ML VIAL SC ONE (08:35)
[2022-12-08 08:52] LABS: APPEARANCE, URINE HAZY (CLEAR); BACTERIA, URINE AUTO NEGATIVE (NEGATIVE); BILIRUBIN, URINE AUTO NEGATIVE (NEGATIVE); BLOOD, URINE BLOOD NEGATIVE (NEGATIVE); COLOR, URINE YELLOW (YELLOW); GLUCOSE, URINE (UA) AUTO NEGATIVE (NEGATIVE); KETONE, URINE AUTO TRACE mg/dL (NEGATIVE); LEUKOCYTE ESTERASE, URINE AUTO NEGATIVE (NEGATIVE); MUCUS, URINE SMALL (NEGATIVE); NITRITE, URINE AUTO NEGATIVE (NEGATIVE); PROTEIN, URINE AUTO 1+ mg/dL (NEGATIVE); RBC, URINE AUTO 2 /HPF (0-3); SPECIFIC GRAVITY URINE AUTO 1.031 (1.002-1.035); SQUAMOUS EPITHELIAL CELL UR AU 1 /HPF (0-6); UROBILINOGEN, URINE AUTO 0.2 mg/dL (0.0-2.0); WBC, URINE AUTO 3 /HPF (0-3)
[2022-12-08] MEDS: DOCUSATE SODIUM 100MG CAPSULE PO SCH ×2 (09:00→20:45)
[2022-12-08] MEDS: LEVALBUTEROL 1.25MG/3ML NEB SOLN NEB SCH ×3 (09:00→19:59)
[2022-12-08] MEDS: MOM 30ML SUSPENSION UDC PO SCH (09:00)
[2022-12-08] MEDS: PANTOPRAZOLE 40MG TAB (PROTONIX) PO SCH (09:00)
[2022-12-08 09:06] LABS: HEMATOCRIT 41.4 % (42.0-52.0); HEMOGLOBIN 11.9 g/dl (13.5-17.5); MEAN CORPUSCULAR HEMOGLOBIN 23.8 pg (27.0-33.0); MEAN CORPUSCULAR HGB CONC 28.7 g/dl (32.0-36.5); MEAN CORPUSCULAR VOLUME 82.8 fl (80.0-96.0); PLATELET COUNT, AUTOMATED 276 10^3/uL (150-450)
[2022-12-08 09:13] LABS: WHITE BLOOD COUNT 32.4 10^3/uL (4.0-10.0)
[2022-12-08] MEDS: PIPERACILLIN/TAZOBACTAM SOD 4.5 GM in D5W MINI-BAG PLUS 50 ML IV SCH ×3 (09:34→20:45)
[2022-12-08 10:12] LABS: PH BODY FLUID < 6.500 UNITS (NOT ESTABLISHED); SOURCE, BODY FLUID pH PLEURAL
[2022-12-08 10:20] LABS: SOURCE, BODY FLUID ALBUMIN PLEURAL
[2022-12-08 10:25] LABS: SOURCE, BODY FLUID GLUCOSE PLEURAL
[2022-12-08 10:27] LABS: AMYLASE, BODY FLUID < 20 U/L (NOT ESTABLISHED); CHOLESTEROL, BODY FLUID 38 MG/DL (NOT ESTABLISHED); SOURCE, BODY FLUID AMYLASE PLEURAL; SOURCE, BODY FLUID CHOL PLEURAL
[2022-12-08 10:28] LABS: SOURCE, BODY FLUID TOT PROTEIN PLEURAL; TOTAL PROTEIN, BODY FLUID < 2.0 G/DL (NOT ESTABLISHED)
[2022-12-08 10:37] LABS: LDH, BODY FLUID > 700 U/L (NOT ESTABLISHED); SOURCE, BODY FLUID LDH PLEURAL
[2022-12-08 10:45] LABS: APPEARANCE, BODY FLUID TURBID (CLEAR); SOURCE, BODY FLUID PLEURAL
[2022-12-08] MEDS ORDERED: VANCOMYCIN HCL 750 MG, VIAL MATE ADAPTER 1 EACH in D5W 250 ML IV SCH (11:00)
[2022-12-08 11:03] LABS: SOURCE, BODY FLUID TRIG PLEURAL; TRIGLYCERIDE, BODY FLUID 55 MG/DL (NOT ESTABLISHED)
[2022-12-08] MEDS ORDERED: ASPIRIN 300 MG SUPP PR ONE (12:00)
[2022-12-08 12:01] LABS: ALBUMIN 1.8 G/DL (3.2-5.2); ALKALINE PHOSPHATASE 200 U/L (46-116); ALT/SGPT 18 U/L (7.0-40); AST/SGOT 40 U/L (<34); BILIRUBIN,TOTAL 0.2 MG/DL (0.3-1.2); BLOOD UREA NITROGEN 24 MG/DL (9-23); CALCIUM LEVEL 8.4 MG/DL (8.3-10.6); CARBON DIOXIDE LEVEL 23 MMOL/L (20-31); CHLORIDE LEVEL 103 MMOL/L (98-107); CREATININE FOR GFR 0.56 MG/DL (0.70-1.30); GLOMERULAR FILTRATION RATE > 60.0 (>49); GLUCOSE, FASTING 116 MG/DL (74-106); PHOSPHORUS LEVEL 5.3 MG/DL (2.4-5.1); POTASSIUM SERUM 4.9 MMOL/L (3.5-5.1); SODIUM LEVEL 139 MMOL/L (136-145); TOTAL PROTEIN 7.3 G/DL (5.7-8.2)
[2022-12-08 12:25] LABS: MAGNESIUM LEVEL 2.1 MG/DL (1.8-2.4)
[2022-12-08] MEDS ORDERED: ALTEPLASE 2MG/2ML VIAL XX ONE (15:40)
[2022-12-08] MEDS ORDERED: ALBUTEROL 90 MCG/ACT 8GM HFA INHALER INH PRN (16:30)
[2022-12-08] MEDS: ALPRAZolam 0.5 MG TAB PO PRN ×2 (16:34→17:16)
[2022-12-08] MEDS ORDERED: ATROPINE SULF 1MG/10ML SYRINGE As Ordered ONE (16:45)
[2022-12-08] MEDS ORDERED: LR 1,000 ML IV ONE (17:25)
[2022-12-08] MEDS: VANCOMYCIN HCL 750 MG, VIAL MATE ADAPTER 1 EACH in D5W 250 ML IV SCH (18:07)
[2022-12-08] MEDS: LR 1,000 ML IV SCH (20:45)
[2022-12-09] VITALS (29 sets, daily range): BP systolic 89–126; BP diastolic 56–89; TEMP 97–98.6; O2SAT 90–100
[2022-12-09] MEDS: VANCOMYCIN HCL 750 MG, VIAL MATE ADAPTER 1 EACH in D5W 250 ML IV SCH ×2 (00:38→09:14)
[2022-12-09] MEDS: LEVALBUTEROL 1.25MG/3ML NEB SOLN NEB SCH ×4 (00:57→21:30)
[2022-12-09] MEDS: LR 1,000 ML IV SCH ×3 (02:26→18:09)
[2022-12-09] MEDS: PIPERACILLIN/TAZOBACTAM SOD 4.5 GM in D5W MINI-BAG PLUS 50 ML IV SCH ×4 (02:26→21:23)
[2022-12-09] MEDS: MORPHINE 2 MG/ML 1ML VIAL IV PRN ×5 (03:01→21:23)
[2022-12-09 04:38] LABS: BASO # 0.1 10^3/uL (0.0-0.2); BASO % 0.2 % (0.0-1.0); HEMATOCRIT 32.1 % (42.0-52.0); LYMPH # 1.8 10^3/uL (1.5-5.0); LYMPH % 5.9 % (24.0-44.0); MEAN CORPUSCULAR HEMOGLOBIN 23.3 pg (27.0-33.0); MEAN CORPUSCULAR VOLUME 80.3 fl (80.0-96.0); MONO # 0.7 10^3/uL (0.0-0.8); MONO % 2.3 % (2.0-8.0); NEUTROPHILS # 28.3 10^3/uL (1.5-8.5); NEUTROPHILS % 90.9 % (36.0-66.0); PLATELET COUNT, AUTOMATED 294 10^3/uL (150-450)
[2022-12-09 04:40] LABS: WHITE BLOOD COUNT 31.1 10^3/uL (4.0-10.0)
[2022-12-09 04:41] LABS: HEMOGLOBIN 9.3 g/dl (13.5-17.5)
[2022-12-09 05:10] LABS: BLOOD UREA NITROGEN 22 MG/DL (9-23); CALCIUM LEVEL 7.7 MG/DL (8.3-10.6); CARBON DIOXIDE LEVEL 28 MMOL/L (20-31); CHLORIDE LEVEL 106 MMOL/L (98-107); GLOMERULAR FILTRATION RATE > 60.0 (>49); GLUCOSE, FASTING 113 MG/DL (74-106); POTASSIUM SERUM 4.1 MMOL/L (3.5-5.1); SODIUM LEVEL 139 MMOL/L (136-145)
[2022-12-09] MEDS: HEPARIN SOD (PORCINE) 5000UNITS/ML 1ML VIAL/SYRINGE SC SCH ×3 (05:22→21:21)
[2022-12-09 05:46] LABS: ABG BASE EXCESS 3.4 (-2.0-2.0); ABG O2 SATURATION 98.9 % (95.0-99.0); ABG PARTIAL PRESSURE CO2 42.5 mmHg (35.0-45.0); ABG STANDARD HCO3 27.5 MMOL/L. (22.0-26.0); ABG TOTAL CO2 29.3 MMOL/L (23.0-31.0); ABG pH (ARTERIAL) 7.436 UNITS (7.350-7.450)
[2022-12-09] MEDS: MOM 30ML SUSPENSION UDC PO SCH (09:00)
[2022-12-09] MEDS: DOCUSATE SODIUM 100MG CAPSULE PO SCH ×2 (09:00→21:00)
[2022-12-09] MEDS: PANTOPRAZOLE 40MG TAB (PROTONIX) PO SCH (09:13)
[2022-12-09] MEDS: PANTOPRAZOLE 40MG VIAL IV SCH (09:32)
[2022-12-09] MEDS ORDERED: VARIBAR PUDDING 40% w/v 230ML TUBE As Ordered ONE (10:33)
[2022-12-09] MEDS ORDERED: BARIUM SULFATE 700 MG TABLET (E-Z-DISK) As Ordered ONE (10:34)
[2022-12-09] MEDS ORDERED: E-Z-PAQUE 96% w/w SUSP 176GM BTL As Ordered ONE (10:34)
[2022-12-09] MEDS ORDERED: VARIBAR NECTAR 40% w/v 240ML SUSP BTL As Ordered ONE (10:34)
[2022-12-09] MEDS: ALPRAZolam 0.5 MG TAB PO PRN ×2 (10:57→21:23)
[2022-12-09] MEDS: PERCOCET 5MG/325MG TAB PO PRN ×2 (16:38→22:00)
[2022-12-09] MEDS: BUPRENORPHINE/NALOXONE 2-0.5MG SUBLINGUAL TABLET(SUBOXONE) SL SCH (21:00)
[2022-12-10] VITALS (15 sets, daily range): BP systolic 97–137; BP diastolic 53–83; TEMP 96.8–99.3; O2SAT 91–96
[2022-12-10] MEDS: LEVALBUTEROL 1.25MG/3ML NEB SOLN NEB SCH ×4 (01:36→19:05)
[2022-12-10] MEDS: MORPHINE 2 MG/ML 1ML VIAL IV PRN ×4 (02:00→21:02)
[2022-12-10] MEDS: LR 1,000 ML IV SCH (02:06)
[2022-12-10] MEDS: PIPERACILLIN/TAZOBACTAM SOD 4.5 GM in D5W MINI-BAG PLUS 50 ML IV SCH ×4 (03:55→20:27)
[2022-12-10] MEDS: PERCOCET 5MG/325MG TAB PO PRN ×4 (03:56→20:26)
[2022-12-10 04:56] LABS: BASO % 0.1 % (0.0-1.0); EOS # 0.1 10^3/uL (0.0-0.5); EOS % 0.5 % (0.0-3.0); HEMATOCRIT 29.9 % (42.0-52.0); HEMOGLOBIN 8.8 g/dl (13.5-17.5); LYMPH # 2.5 10^3/uL (1.5-5.0); LYMPH % 11.3 % (24.0-44.0); MEAN CORPUSCULAR HEMOGLOBIN 23.5 pg (27.0-33.0); MEAN CORPUSCULAR HGB CONC 29.4 g/dl (32.0-36.5); MEAN CORPUSCULAR VOLUME 79.9 fl (80.0-96.0); MONO # 0.6 10^3/uL (0.0-0.8); MONO % 2.7 % (2.0-8.0); NEUTROPHILS # 18.8 10^3/uL (1.5-8.5); NEUTROPHILS % 84.5 % (36.0-66.0); PLATELET COUNT, AUTOMATED 264 10^3/uL (150-450); RED BLOOD COUNT 3.74 10^6/uL (4.30-6.10); WHITE BLOOD COUNT 22.2 10^3/uL (4.0-10.0)
[2022-12-10 05:27] LABS: BLOOD UREA NITROGEN 20 MG/DL (9-23); CALCIUM LEVEL 7.7 MG/DL (8.3-10.6); CARBON DIOXIDE LEVEL 27 MMOL/L (20-31); CHLORIDE LEVEL 105 MMOL/L (98-107); CREATININE FOR GFR 0.49 MG/DL (0.70-1.30); GLOMERULAR FILTRATION RATE > 60.0 (>49); GLUCOSE, FASTING 100 MG/DL (74-106); MAGNESIUM LEVEL 1.8 MG/DL (1.8-2.4); POTASSIUM SERUM 3.7 MMOL/L (3.5-5.1); SODIUM LEVEL 141 MMOL/L (136-145)
[2022-12-10] MEDS: HEPARIN SOD (PORCINE) 5000UNITS/ML 1ML VIAL/SYRINGE SC SCH ×3 (06:28→21:01)
[2022-12-10] MEDS: TIOTROPIUM INHALER/CAPSULE (SPIRIVA) INH SCH (07:03)
[2022-12-10] MEDS: BUPRENORPHINE/NALOXONE 2-0.5MG SUBLINGUAL TABLET(SUBOXONE) SL SCH ×2 (09:00→20:26)
[2022-12-10] MEDS: MOM 30ML SUSPENSION UDC PO SCH (09:00)
[2022-12-10] MEDS: ACETAMINOPHEN TAB 650MG DOSE (2X325MG) PO PRN (09:18)
[2022-12-10] MEDS: DOCUSATE SODIUM 100MG CAPSULE PO SCH ×2 (09:18→20:26)
[2022-12-10] MEDS: PANTOPRAZOLE 40MG VIAL IV SCH (09:20)
[2022-12-10] MEDS: ALBUTEROL 90 MCG/ACT 8GM HFA INHALER INH SCH ×2 (10:55→19:06)
[2022-12-10] MEDS: ALPRAZolam 0.5 MG TAB PO PRN ×2 (14:56→21:01)
[2022-12-11] VITALS (7 sets, daily range): BP systolic 108–157; BP diastolic 65–98; TEMP 97–98.1; O2SAT 89–95
[2022-12-11] MEDS: LEVALBUTEROL 1.25MG/3ML NEB SOLN NEB SCH ×4 (01:04→19:33)
[2022-12-11] MEDS: PERCOCET 5MG/325MG TAB PO PRN ×4 (01:35→19:53)
[2022-12-11] MEDS: MORPHINE 2 MG/ML 1ML VIAL IV PRN ×5 (01:35→21:54)
[2022-12-11] MEDS: PIPERACILLIN/TAZOBACTAM SOD 4.5 GM in D5W MINI-BAG PLUS 50 ML IV SCH ×4 (02:46→21:03)
[2022-12-11 04:44] LABS: BASO % 0.2 % (0.0-1.0); EOS # 0.2 10^3/uL (0.0-0.5); HEMATOCRIT 32.1 % (42.0-52.0); HEMOGLOBIN 9.6 g/dl (13.5-17.5); LYMPH # 2.3 10^3/uL (1.5-5.0); LYMPH % 14.6 % (24.0-44.0); MEAN CORPUSCULAR HEMOGLOBIN 23.6 pg (27.0-33.0); MEAN CORPUSCULAR HGB CONC 29.9 g/dl (32.0-36.5); MEAN CORPUSCULAR VOLUME 79.1 fl (80.0-96.0); MONO # 0.6 10^3/uL (0.0-0.8); MONO % 3.5 % (2.0-8.0); NEUTROPHILS # 12.5 10^3/uL (1.5-8.5); NEUTROPHILS % 80.1 % (36.0-66.0); PLATELET COUNT, AUTOMATED 310 10^3/uL (150-450); RED BLOOD COUNT 4.06 10^6/uL (4.30-6.10); WHITE BLOOD COUNT 15.6 10^3/uL (4.0-10.0)
[2022-12-11 04:53] LABS: ERYTHROCYTE SEDIMENTATION RATE > 130 mm/hr (0-20)
[2022-12-11 05:06] LABS: BLOOD UREA NITROGEN 18 MG/DL (9-23); CALCIUM LEVEL 7.2 MG/DL (8.3-10.6); CARBON DIOXIDE LEVEL 27 MMOL/L (20-31); CHLORIDE LEVEL 106 MMOL/L (98-107); CREATININE FOR GFR 0.56 MG/DL (0.70-1.30); GLOMERULAR FILTRATION RATE > 60.0 (>49); GLUCOSE, FASTING 90 MG/DL (74-106); POTASSIUM SERUM 3.7 MMOL/L (3.5-5.1); SODIUM LEVEL 141 MMOL/L (136-145)
[2022-12-11] MEDS: HEPARIN SOD (PORCINE) 5000UNITS/ML 1ML VIAL/SYRINGE SC SCH ×3 (05:41→21:04)
[2022-12-11] MEDS: TIOTROPIUM INHALER/CAPSULE (SPIRIVA) INH SCH (07:07)
[2022-12-11] MEDS: MOM 30ML SUSPENSION UDC PO SCH ×3 (08:28→15:18)
[2022-12-11] MEDS: BUPRENORPHINE/NALOXONE 2-0.5MG SUBLINGUAL TABLET(SUBOXONE) SL SCH (08:28)
[2022-12-11] MEDS ORDERED: PERCOCET 5MG/325MG TAB PO PRN (09:00)
[2022-12-11] MEDS: PANTOPRAZOLE 40MG TAB (PROTONIX) PO SCH (09:25)
[2022-12-11] MEDS: DOCUSATE SODIUM 100MG CAPSULE PO SCH ×2 (09:25→21:02)
[2022-12-11] MEDS ORDERED: BACLOFEN 10 MG TAB PO PRN (10:25)
[2022-12-11 10:50] LABS: MAGNESIUM LEVEL 1.8 MG/DL (1.8-2.4)
[2022-12-11] MEDS ORDERED: ALBUTEROL 90 MCG/ACT 8GM HFA INHALER INH PRN (11:10)
[2022-12-11] MEDS: MAG SULF 1GM/100ML (MAG RUN) 1 GM in IV 1 EA IV SCH ×2 (11:19→12:32)
[2022-12-11] MEDS ORDERED: PILL CUTTER 1 EACH XX PRN (11:25)
[2022-12-11] MEDS: amLODIPine 5 MG TAB PO SCH (12:33)
[2022-12-11] MEDS: GABAPENTIN 100 MG CAP PO SCH ×2 (15:12→21:02)
[2022-12-11] MEDS: ALPRAZolam 0.5 MG TAB PO PRN (19:52)
[2022-12-12] VITALS: BP 131/85; TEMP 98.6; O2SAT 94
[2022-12-12] MEDS: LEVALBUTEROL 1.25MG/3ML NEB SOLN NEB SCH ×4 (01:36→19:37)
[2022-12-12] MEDS: PIPERACILLIN/TAZOBACTAM SOD 4.5 GM in D5W MINI-BAG PLUS 50 ML IV SCH ×2 (03:13→09:31)
[2022-12-12 03:57] VITALS: BP 114/76; TEMP 97.6; O2SAT 94
[2022-12-12] MEDS: HEPARIN SOD (PORCINE) 5000UNITS/ML 1ML VIAL/SYRINGE SC SCH ×3 (05:37→21:17)
[2022-12-12] MEDS: PERCOCET 5MG/325MG TAB PO PRN ×3 (05:39→20:34)
[2022-12-12 06:19] LABS: BASO % 0.2 % (0.0-1.0); EOS # 0.2 10^3/uL (0.0-0.5); EOS % 1.9 % (0.0-3.0); HEMATOCRIT 30.6 % (42.0-52.0); LYMPH # 2.5 10^3/uL (1.5-5.0); LYMPH % 20.6 % (24.0-44.0); MEAN CORPUSCULAR HEMOGLOBIN 23.7 pg (27.0-33.0); MEAN CORPUSCULAR HGB CONC 29.4 g/dl (32.0-36.5); MEAN CORPUSCULAR VOLUME 80.5 fl (80.0-96.0); MONO # 0.6 10^3/uL (0.0-0.8); NEUTROPHILS # 8.5 10^3/uL (1.5-8.5); NEUTROPHILS % 71.8 % (36.0-66.0); PLATELET COUNT, AUTOMATED 359 10^3/uL (150-450); WHITE BLOOD COUNT 11.9 10^3/uL (4.0-10.0)
[2022-12-12 06:41] LABS: BLOOD UREA NITROGEN 15 MG/DL (9-23); CALCIUM LEVEL 7.4 MG/DL (8.3-10.6); CARBON DIOXIDE LEVEL 30 MMOL/L (20-31); CHLORIDE LEVEL 104 MMOL/L (98-107); CREATININE FOR GFR 0.44 MG/DL (0.70-1.30); GLOMERULAR FILTRATION RATE > 60.0 (>49); GLUCOSE, FASTING 75 MG/DL (74-106); MAGNESIUM LEVEL 2.2 MG/DL (1.8-2.4); POTASSIUM SERUM 3.9 MMOL/L (3.5-5.1); SODIUM LEVEL 141 MMOL/L (136-145)
[2022-12-12] MEDS: TIOTROPIUM INHALER/CAPSULE (SPIRIVA) INH SCH (07:34)
[2022-12-12 07:43] VITALS: BP 123/72; TEMP 97.7; O2SAT 95
[2022-12-12] MEDS: MOM 30ML SUSPENSION UDC PO SCH (09:31)
[2022-12-12] MEDS: amLODIPine 5 MG TAB PO SCH (09:32)
[2022-12-12] MEDS: ALPRAZolam 0.5 MG TAB PO PRN ×2 (09:32→23:19)
[2022-12-12] MEDS: DOCUSATE SODIUM 100MG CAPSULE PO SCH ×2 (09:32→20:33)
[2022-12-12] MEDS: GABAPENTIN 100 MG CAP PO SCH ×3 (09:33→20:33)
[2022-12-12] MEDS: MORPHINE 2 MG/ML 1ML VIAL IV PRN ×3 (09:33→23:10)
[2022-12-12] MEDS: PANTOPRAZOLE 40MG TAB (PROTONIX) PO SCH (09:33)
[2022-12-12 11:46] VITALS: BP 107/71; TEMP 98.5; O2SAT 94
[2022-12-12] MEDS: cefTRIAXone SOD 2 GM in D5W MINI-BAG PLUS 50 ML IV SCH (14:34)
[2022-12-12 15:43] VITALS: BP 122/81; TEMP 98.4; O2SAT 96
[2022-12-12] MEDS: BACLOFEN 10 MG TAB PO PRN (16:12)
[2022-12-12 19:26] VITALS: BP 119/81; TEMP 97.3; O2SAT 92
[2022-12-13 00:17] VITALS: BP 114/72; TEMP 97.4; O2SAT 96
[2022-12-13] MEDS: LEVALBUTEROL 1.25MG/3ML NEB SOLN NEB SCH ×3 (02:00→13:57)
[2022-12-13 04:22] VITALS: BP 112/71; TEMP 97; O2SAT 95
[2022-12-13 05:32] LABS: HEMATOCRIT 35.3 % (42.0-52.0); HEMOGLOBIN 10.1 g/dl (13.5-17.5); MEAN CORPUSCULAR HEMOGLOBIN 23.3 pg (27.0-33.0); MEAN CORPUSCULAR HGB CONC 28.6 g/dl (32.0-36.5); MEAN CORPUSCULAR VOLUME 81.5 fl (80.0-96.0); RED BLOOD COUNT 4.33 10^6/uL (4.30-6.10); WHITE BLOOD COUNT 10.8 10^3/uL (4.0-10.0)
[2022-12-13] MEDS: HEPARIN SOD (PORCINE) 5000UNITS/ML 1ML VIAL/SYRINGE SC SCH ×3 (05:34→22:03)
[2022-12-13] MEDS: PERCOCET 5MG/325MG TAB PO PRN ×3 (05:35→20:02)
[2022-12-13 05:53] LABS: BLOOD UREA NITROGEN 14 MG/DL (9-23); CALCIUM LEVEL 7.7 MG/DL (8.3-10.6); CARBON DIOXIDE LEVEL 29 MMOL/L (20-31); CHLORIDE LEVEL 105 MMOL/L (98-107); CREATININE FOR GFR 0.36 MG/DL (0.70-1.30); GLOMERULAR FILTRATION RATE > 60.0 (>49); GLUCOSE, FASTING 78 MG/DL (74-106); POTASSIUM SERUM 4.4 MMOL/L (3.5-5.1); SODIUM LEVEL 139 MMOL/L (136-145)
[2022-12-13 06:21] LABS: PLATELET COUNT, AUTOMATED 405 10^3/uL (150-450)
[2022-12-13 06:25] LABS: ANISOCYTOSIS 2+; ATYPICAL LYMPH 2 % (0-5); EOSINOPHILS 1 % (0-3); HYPOCHROMASIA 2+; LYMPHOCYTES 25 % (16-44); MONOCYTES 5 % (0-5); NEUTROPHILS 67 % (28-66); PLATELET ESTIMATE NORMAL (NORMAL)
[2022-12-13] MEDS: TIOTROPIUM INHALER/CAPSULE (SPIRIVA) INH SCH (07:13)
[2022-12-13 07:24] VITALS: BP 136/80; TEMP 97.6; O2SAT 97
[2022-12-13] MEDS: PANTOPRAZOLE 40MG TAB (PROTONIX) PO SCH (09:12)
[2022-12-13] MEDS: amLODIPine 5 MG TAB PO SCH (09:13)
[2022-12-13] MEDS: MORPHINE 2 MG/ML 1ML VIAL IV PRN ×3 (09:14→22:03)
[2022-12-13] MEDS: DOCUSATE SODIUM 100MG CAPSULE PO SCH ×2 (09:14→20:02)
[2022-12-13] MEDS: GABAPENTIN 100 MG CAP PO SCH ×3 (09:14→20:02)
[2022-12-13] MEDS: MOM 30ML SUSPENSION UDC PO SCH (09:14)
[2022-12-13] MEDS: ALPRAZolam 0.5 MG TAB PO PRN ×2 (09:21→20:02)
[2022-12-13 12:18] VITALS: BP 104/70; TEMP 98.6; O2SAT 95
[2022-12-13] MEDS: cefTRIAXone SOD 2 GM in D5W MINI-BAG PLUS 50 ML IV SCH (14:53)
[2022-12-13] MEDS ORDERED: LEVALBUTEROL 1.25MG 0.5ML CONCENTRATE NEB NEB PRN (15:25)
[2022-12-13 16:00] VITALS: BP 105/67; TEMP 98.2; O2SAT 95
[2022-12-13 20:00] VITALS: BP 119/79; TEMP 97.7; O2SAT 99
[2022-12-13] MEDS: BACLOFEN 10 MG TAB PO PRN (20:02)
[2022-12-13] MEDS: LEVALBUTEROL 1.25MG 0.5ML CONCENTRATE NEB NEB SCH (20:14)
[2022-12-14] VITALS: BP 116/73; TEMP 98.4; O2SAT 94
[2022-12-14] MEDS: PERCOCET 5MG/325MG TAB PO PRN ×4 (00:04→17:01)
[2022-12-14] MEDS: metroNIDAZOLE (FLAGYL) 500MG TABLET PO SCH ×4 (00:04→20:41)
[2022-12-14] MEDS: LEVALBUTEROL 1.25MG 0.5ML CONCENTRATE NEB NEB SCH ×4 (02:00→20:06)
[2022-12-14 03:29] VITALS: BP 107/72; TEMP 97.6; O2SAT 95
[2022-12-14] MEDS: HEPARIN SOD (PORCINE) 5000UNITS/ML 1ML VIAL/SYRINGE SC SCH ×3 (05:35→20:40)
[2022-12-14] MEDS: MORPHINE 2 MG/ML 1ML VIAL IV PRN ×4 (05:41→20:40)
[2022-12-14 06:02] LABS: HEMATOCRIT 32.5 % (42.0-52.0); HEMOGLOBIN 9.4 g/dl (13.5-17.5); MEAN CORPUSCULAR HEMOGLOBIN 23.6 pg (27.0-33.0); MEAN CORPUSCULAR HGB CONC 28.9 g/dl (32.0-36.5); MEAN CORPUSCULAR VOLUME 81.5 fl (80.0-96.0); PLATELET COUNT, AUTOMATED 446 10^3/uL (150-450); RED BLOOD COUNT 3.99 10^6/uL (4.30-6.10); WHITE BLOOD COUNT 10.3 10^3/uL (4.0-10.0)
[2022-12-14 06:18] LABS: BLOOD UREA NITROGEN 15 MG/DL (9-23); CALCIUM LEVEL 7.3 MG/DL (8.3-10.6); CARBON DIOXIDE LEVEL 29 MMOL/L (20-31); CHLORIDE LEVEL 107 MMOL/L (98-107); CREATININE FOR GFR 0.38 MG/DL (0.70-1.30); GLOMERULAR FILTRATION RATE > 60.0 (>49); GLUCOSE, FASTING 83 MG/DL (74-106); POTASSIUM SERUM 4.3 MMOL/L (3.5-5.1); SODIUM LEVEL 141 MMOL/L (136-145)
[2022-12-14 06:45] LABS: LYMPHOCYTES 18 % (16-44); MONOCYTES 8 % (0-5); NEUTROPHILS 73 % (28-66)
[2022-12-14 06:46] LABS: PLATELET CLUMPS SMALL AMT; PLATELET ESTIMATE NORMAL (NORMAL); SMUDGE CELLS 1+
[2022-12-14 06:47] LABS: ANISOCYTOSIS 2+; HYPOCHROMASIA 1+
[2022-12-14] MEDS: MOM 30ML SUSPENSION UDC PO SCH (07:21)
[2022-12-14] MEDS: PANTOPRAZOLE 40MG TAB (PROTONIX) PO SCH (07:22)
[2022-12-14] MEDS: DOCUSATE SODIUM 100MG CAPSULE PO SCH ×2 (07:25→20:40)
[2022-12-14] MEDS: GABAPENTIN 100 MG CAP PO SCH ×3 (07:25→20:40)
[2022-12-14] MEDS: amLODIPine 5 MG TAB PO SCH (07:25)
[2022-12-14] MEDS: ALPRAZolam 0.5 MG TAB PO PRN ×3 (07:26→20:41)
[2022-12-14 08:00] VITALS: BP 147/94; TEMP 98.4; O2SAT 94
[2022-12-14] MEDS: TIOTROPIUM INHALER/CAPSULE (SPIRIVA) INH SCH (08:28)
[2022-12-14] MEDS ORDERED: FUROSEMIDE 40MG/4ML VIAL IV ONE (09:10)
[2022-12-14] MEDS: KETOROLAC 30 MG/ML 1ML VIAL IV SCH ×3 (10:09→20:40)
[2022-12-14 12:00] VITALS: BP 109/77; TEMP 98; O2SAT 96
[2022-12-14] MEDS: cefTRIAXone SOD 2 GM in D5W MINI-BAG PLUS 50 ML IV SCH (14:37)
[2022-12-14 15:07] VITALS: BP 88/57; TEMP 98.2; O2SAT 90
[2022-12-14 20:00] VITALS: BP 130/64; TEMP 97.8; O2SAT 93
[2022-12-14] MEDS: BACLOFEN 10 MG TAB PO PRN (20:40)
[2022-12-15] VITALS: BP 111/64; TEMP 96.9; O2SAT 95
[2022-12-15] MEDS: PERCOCET 5MG/325MG TAB PO PRN ×3 (00:34→10:36)
[2022-12-15] MEDS: LEVALBUTEROL 1.25MG 0.5ML CONCENTRATE NEB NEB SCH ×4 (01:20→19:05)
[2022-12-15 03:52] VITALS: BP 114/73; TEMP 96.7; O2SAT 97
[2022-12-15] MEDS: MORPHINE 2 MG/ML 1ML VIAL IV PRN ×5 (04:00→22:42)
[2022-12-15] MEDS: KETOROLAC 30 MG/ML 1ML VIAL IV SCH ×4 (04:00→21:33)
[2022-12-15] MEDS: HEPARIN SOD (PORCINE) 5000UNITS/ML 1ML VIAL/SYRINGE SC SCH ×3 (05:21→21:32)
[2022-12-15] MEDS: metroNIDAZOLE (FLAGYL) 500MG TABLET PO SCH ×3 (05:21→21:31)
[2022-12-15 05:23] LABS: BLOOD UREA NITROGEN 19 MG/DL (9-23); CALCIUM LEVEL 7.3 MG/DL (8.3-10.6); CARBON DIOXIDE LEVEL 29 MMOL/L (20-31); CHLORIDE LEVEL 109 MMOL/L (98-107); CREATININE FOR GFR 0.56 MG/DL (0.70-1.30); GLOMERULAR FILTRATION RATE > 60.0 (>49); GLUCOSE, FASTING 92 MG/DL (74-106); POTASSIUM SERUM 4.2 MMOL/L (3.5-5.1); SODIUM LEVEL 144 MMOL/L (136-145)
[2022-12-15 08:00] VITALS: BP 137/96; TEMP 98; O2SAT 93
[2022-12-15] MEDS: TIOTROPIUM INHALER/CAPSULE (SPIRIVA) INH SCH (08:00)
[2022-12-15] MEDS: MOM 30ML SUSPENSION UDC PO SCH (08:24)
[2022-12-15] MEDS: amLODIPine 5 MG TAB PO SCH (08:24)
[2022-12-15] MEDS: DOCUSATE SODIUM 100MG CAPSULE PO SCH ×2 (08:24→21:00)
[2022-12-15] MEDS: GABAPENTIN 100 MG CAP PO SCH ×3 (08:24→21:32)
[2022-12-15] MEDS: PANTOPRAZOLE 40MG TAB (PROTONIX) PO SCH (08:24)
[2022-12-15] MEDS: ALPRAZolam 0.5 MG TAB PO PRN ×3 (08:37→22:03)
[2022-12-15 11:23] VITALS: BP 102/66; TEMP 97.2; O2SAT 93
[2022-12-15] MEDS: cefTRIAXone SOD 2 GM in D5W MINI-BAG PLUS 50 ML IV SCH (15:35)
[2022-12-15 15:37] VITALS: BP 125/78; TEMP 97.2; O2SAT 90
[2022-12-15 20:00] VITALS: BP 120/61; TEMP 97.8; O2SAT 95
[2022-12-16] VITALS (11 sets, daily range): BP systolic 118–153; BP diastolic 67–89; TEMP 97.4–98.9; O2SAT 91–96
[2022-12-16] MEDS: ACETAMINOPHEN TAB 650MG DOSE (2X325MG) PO PRN (00:37)
[2022-12-16] MEDS: PERCOCET 5MG/325MG TAB PO PRN ×4 (00:37→17:48)
[2022-12-16] MEDS: LEVALBUTEROL 1.25MG 0.5ML CONCENTRATE NEB NEB SCH ×4 (01:33→20:00)
[2022-12-16] MEDS: MORPHINE 2 MG/ML 1ML VIAL IV PRN ×4 (03:03→21:13)
[2022-12-16] MEDS: KETOROLAC 30 MG/ML 1ML VIAL IV SCH ×4 (03:03→21:13)
[2022-12-16 05:08] LABS: HEMATOCRIT 31.9 % (42.0-52.0); HEMOGLOBIN 9.3 g/dl (13.5-17.5); MEAN CORPUSCULAR VOLUME 81.6 fl (80.0-96.0); RED BLOOD COUNT 3.91 10^6/uL (4.30-6.10); WHITE BLOOD COUNT 9.7 10^3/uL (4.0-10.0)
[2022-12-16 05:09] LABS: MEAN CORPUSCULAR HEMOGLOBIN 23.8 pg (27.0-33.0); MEAN CORPUSCULAR HGB CONC 29.2 g/dl (32.0-36.5); PLATELET COUNT, AUTOMATED 477 10^3/uL (150-450)
[2022-12-16 05:38] LABS: BLOOD UREA NITROGEN 22 MG/DL (9-23); CALCIUM LEVEL 7.5 MG/DL (8.3-10.6); CARBON DIOXIDE LEVEL 28 MMOL/L (20-31); CHLORIDE LEVEL 108 MMOL/L (98-107); CREATININE FOR GFR 0.45 MG/DL (0.70-1.30); GLOMERULAR FILTRATION RATE > 60.0 (>49); GLUCOSE, FASTING 83 MG/DL (74-106); POTASSIUM SERUM 4.1 MMOL/L (3.5-5.1); SODIUM LEVEL 144 MMOL/L (136-145)
[2022-12-16 05:49] LABS: ATYPICAL LYMPH 2 % (0-5); BASOPHILS 2 % (0-1); EOSINOPHILS 3 % (0-3); LYMPHOCYTES 34 % (16-44); MONOCYTES 7 % (0-5); NEUTROPHILS 52 % (28-66); PLATELET ESTIMATE NORMAL (NORMAL)
[2022-12-16 05:50] LABS: ANISOCYTOSIS 3+; HYPOCHROMASIA 2+
[2022-12-16] MEDS: HEPARIN SOD (PORCINE) 5000UNITS/ML 1ML VIAL/SYRINGE SC SCH ×3 (06:28→21:13)
[2022-12-16] MEDS: metroNIDAZOLE (FLAGYL) 500MG TABLET PO SCH ×3 (06:28→21:12)
[2022-12-16] MEDS: ALPRAZolam 0.5 MG TAB PO PRN ×3 (06:37→21:16)
[2022-12-16] MEDS: TIOTROPIUM INHALER/CAPSULE (SPIRIVA) INH SCH (07:07)
[2022-12-16] MEDS: DOCUSATE SODIUM 100MG CAPSULE PO SCH ×2 (09:00→21:00)
[2022-12-16] MEDS: MOM 30ML SUSPENSION UDC PO SCH (09:00)
[2022-12-16] MEDS ORDERED: FUROSEMIDE 40MG/4ML VIAL IV ONE (10:00)
[2022-12-16] MEDS: BACLOFEN 10 MG TAB PO PRN (10:40)
[2022-12-16] MEDS: PANTOPRAZOLE 40MG TAB (PROTONIX) PO SCH (10:40)
[2022-12-16] MEDS: GABAPENTIN 100 MG CAP PO SCH ×3 (10:40→21:12)
[2022-12-16] MEDS: amLODIPine 5 MG TAB PO SCH (10:40)
[2022-12-16] MEDS: cefTRIAXone SOD 2 GM in D5W MINI-BAG PLUS 50 ML IV SCH (17:13)
[2022-12-17] MEDS: LEVALBUTEROL 1.25MG 0.5ML CONCENTRATE NEB NEB SCH ×4 (01:50→19:47)
[2022-12-17] MEDS: KETOROLAC 30 MG/ML 1ML VIAL IV SCH ×4 (03:28→19:53)
[2022-12-17] MEDS: MORPHINE 2 MG/ML 1ML VIAL IV PRN ×4 (03:28→18:32)
[2022-12-17 03:37] VITALS: BP 133/86; TEMP 97.8; O2SAT 92
[2022-12-17] MEDS: PERCOCET 5MG/325MG TAB PO PRN ×4 (05:47→19:53)
[2022-12-17] MEDS: metroNIDAZOLE (FLAGYL) 500MG TABLET PO SCH ×3 (05:47→19:53)
[2022-12-17] MEDS: HEPARIN SOD (PORCINE) 5000UNITS/ML 1ML VIAL/SYRINGE SC SCH ×3 (05:47→19:53)
[2022-12-17 06:45] LABS: BASO # 0.1 10^3/uL (0.0-0.2); BASO % 0.6 % (0.0-1.0); EOS # 0.4 10^3/uL (0.0-0.5); EOS % 3.8 % (0.0-3.0); HEMATOCRIT 33.9 % (42.0-52.0); HEMOGLOBIN 9.7 g/dl (13.5-17.5); LYMPH # 2.5 10^3/uL (1.5-5.0); LYMPH % 25.6 % (24.0-44.0); MEAN CORPUSCULAR HEMOGLOBIN 23.5 pg (27.0-33.0); MEAN CORPUSCULAR HGB CONC 28.6 g/dl (32.0-36.5); MEAN CORPUSCULAR VOLUME 82.3 fl (80.0-96.0); MONO # 0.8 10^3/uL (0.0-0.8); MONO % 8.7 % (2.0-8.0); NEUTROPHILS # 5.9 10^3/uL (1.5-8.5); NEUTROPHILS % 60.8 % (36.0-66.0); PLATELET COUNT, AUTOMATED 485 10^3/uL (150-450); RED BLOOD COUNT 4.12 10^6/uL (4.30-6.10); WHITE BLOOD COUNT 9.7 10^3/uL (4.0-10.0)
[2022-12-17] MEDS: TIOTROPIUM INHALER/CAPSULE (SPIRIVA) INH SCH (07:06)
[2022-12-17 07:12] LABS: ALBUMIN 1.4 G/DL (3.2-5.2); ALKALINE PHOSPHATASE 126 U/L (46-116); ALT/SGPT 16 U/L (7.0-40); AST/SGOT 25 U/L (<34); BILIRUBIN,TOTAL 0.2 MG/DL (0.3-1.2); BLOOD UREA NITROGEN 22 MG/DL (9-23); CALCIUM LEVEL 7.8 MG/DL (8.3-10.6); CARBON DIOXIDE LEVEL 27 MMOL/L (20-31); CHLORIDE LEVEL 107 MMOL/L (98-107); CREATININE FOR GFR 0.46 MG/DL (0.70-1.30); GLOMERULAR FILTRATION RATE > 60.0 (>49); GLUCOSE, FASTING 87 MG/DL (74-106); POTASSIUM SERUM 4.3 MMOL/L (3.5-5.1); SODIUM LEVEL 141 MMOL/L (136-145); TOTAL PROTEIN 5.5 G/DL (5.7-8.2)
[2022-12-17 07:27] VITALS: BP 158/82; TEMP 98; O2SAT 96
[2022-12-17] MEDS: PANTOPRAZOLE 40MG TAB (PROTONIX) PO SCH (08:30)
[2022-12-17] MEDS: GABAPENTIN 100 MG CAP PO SCH ×3 (08:30→19:53)
[2022-12-17] MEDS: amLODIPine 5 MG TAB PO SCH (08:30)
[2022-12-17] MEDS: MOM 30ML SUSPENSION UDC PO SCH (08:31)
[2022-12-17] MEDS: DOCUSATE SODIUM 100MG CAPSULE PO SCH ×2 (08:31→19:52)
[2022-12-17 11:54] VITALS: BP 125/68; TEMP 98.1; O2SAT 96
[2022-12-17] MEDS: POTASSIUM CHLORIDE 10MEQ SR TABLET PO SCH (13:30)
[2022-12-17] MEDS: cefTRIAXone SOD 2 GM in D5W MINI-BAG PLUS 50 ML IV SCH (14:42)
[2022-12-17 15:34] VITALS: BP 118/74; TEMP 97.9; O2SAT 97
[2022-12-17] MEDS: ALPRAZolam 0.5 MG TAB PO PRN (16:09)
[2022-12-17] MEDS: FUROSEMIDE 40MG/4ML VIAL IV SCH (16:10)
[2022-12-17 19:41] VITALS: BP 132/66; O2SAT 98
[2022-12-17 20:10] VITALS: BP 147/80; TEMP 97.8; O2SAT 95
[2022-12-18] VITALS (9 sets, daily range): BP systolic 130–156; BP diastolic 67–93; TEMP 96.5–98.4; O2SAT 92–96
[2022-12-18] MEDS: MORPHINE 2 MG/ML 1ML VIAL IV PRN ×5 (00:01→20:18)
[2022-12-18] MEDS: LEVALBUTEROL 1.25MG 0.5ML CONCENTRATE NEB NEB SCH ×4 (02:00→20:11)
[2022-12-18] MEDS: ALPRAZolam 0.5 MG TAB PO PRN ×3 (02:37→21:59)
[2022-12-18] MEDS: KETOROLAC 30 MG/ML 1ML VIAL IV SCH ×4 (02:38→20:18)
[2022-12-18] MEDS: metroNIDAZOLE (FLAGYL) 500MG TABLET PO SCH ×3 (05:16→21:46)
[2022-12-18] MEDS: HEPARIN SOD (PORCINE) 5000UNITS/ML 1ML VIAL/SYRINGE SC SCH ×3 (05:16→21:46)
[2022-12-18 05:56] LABS: BASO # 0.1 10^3/uL (0.0-0.2); BASO % 0.6 % (0.0-1.0); EOS # 0.4 10^3/uL (0.0-0.5); EOS % 4.1 % (0.0-3.0); HEMATOCRIT 31.8 % (42.0-52.0); HEMOGLOBIN 9.3 g/dl (13.5-17.5); LYMPH # 2.4 10^3/uL (1.5-5.0); LYMPH % 23.1 % (24.0-44.0); MEAN CORPUSCULAR HEMOGLOBIN 23.8 pg (27.0-33.0); MEAN CORPUSCULAR HGB CONC 29.2 g/dl (32.0-36.5); MEAN CORPUSCULAR VOLUME 81.3 fl (80.0-96.0); MONO # 0.9 10^3/uL (0.0-0.8); MONO % 9.1 % (2.0-8.0); NEUTROPHILS # 6.4 10^3/uL (1.5-8.5); NEUTROPHILS % 62.6 % (36.0-66.0); PLATELET COUNT, AUTOMATED 473 10^3/uL (150-450); RED BLOOD COUNT 3.91 10^6/uL (4.30-6.10); WHITE BLOOD COUNT 10.2 10^3/uL (4.0-10.0)
[2022-12-18 06:14] LABS: MAGNESIUM LEVEL 1.8 MG/DL (1.8-2.4)
[2022-12-18 07:20] LABS: ALBUMIN 1.8 G/DL (3.2-5.2); BLOOD UREA NITROGEN 24 MG/DL (9-23); CALCIUM LEVEL 7.9 MG/DL (8.3-10.6); CARBON DIOXIDE LEVEL 27 MMOL/L (20-31); CHLORIDE LEVEL 108 MMOL/L (98-107); CREATININE FOR GFR 0.54 MG/DL (0.70-1.30); GLOMERULAR FILTRATION RATE > 60.0 (>49); GLUCOSE, FASTING 87 MG/DL (74-106); POTASSIUM SERUM 4.8 MMOL/L (3.5-5.1); SODIUM LEVEL 143 MMOL/L (136-145)
[2022-12-18] MEDS ORDERED: ISOVUE-370 76% 100ML VIAL As Ordered ONE (07:44)
[2022-12-18] MEDS: TIOTROPIUM INHALER/CAPSULE (SPIRIVA) INH SCH (07:50)
[2022-12-18] MEDS: DOCUSATE SODIUM 100MG CAPSULE PO SCH (08:59)
[2022-12-18] MEDS: MOM 30ML SUSPENSION UDC PO SCH (08:59)
[2022-12-18] MEDS: FUROSEMIDE 40MG/4ML VIAL IV SCH ×2 (08:59→16:45)
[2022-12-18] MEDS: PERCOCET 5MG/325MG TAB PO PRN ×4 (09:00→23:26)
[2022-12-18] MEDS: PANTOPRAZOLE 40MG TAB (PROTONIX) PO SCH (09:00)
[2022-12-18] MEDS: POTASSIUM CHLORIDE 10MEQ SR TABLET PO SCH (09:00)
[2022-12-18] MEDS: GABAPENTIN 100 MG CAP PO SCH ×3 (09:01→20:19)
[2022-12-18] MEDS: amLODIPine 5 MG TAB PO SCH (09:01)
[2022-12-18] MEDS ORDERED: SODIUM CHLORIDE NASAL 0.65% SPRAY BTL (OCEAN) PRN ×2 (10:05→17:00)
[2022-12-18] MEDS: cefTRIAXone SOD 2 GM in D5W MINI-BAG PLUS 50 ML IV SCH (15:07)
[2022-12-18 21:03] LABS: CLOSTRIDIUM DIFFICILE PCR NEGATIVE (NEGATIVE)
[2022-12-19] VITALS (11 sets, daily range): BP systolic 101–157; BP diastolic 58–85; TEMP 97–98.6; O2SAT 93–97
[2022-12-19] MEDS: LEVALBUTEROL 1.25MG 0.5ML CONCENTRATE NEB NEB SCH ×4 (01:16→19:46)
[2022-12-19] MEDS: MORPHINE 2 MG/ML 1ML VIAL IV PRN ×4 (03:49→21:17)
[2022-12-19] MEDS: KETOROLAC 30 MG/ML 1ML VIAL IV SCH ×4 (03:49→23:20)
[2022-12-19] MEDS: ALPRAZolam 0.5 MG TAB PO PRN ×3 (04:40→20:40)
[2022-12-19 05:11] LABS: BASO # 0.1 10^3/uL (0.0-0.2); BASO % 0.9 % (0.0-1.0); EOS # 0.5 10^3/uL (0.0-0.5); EOS % 4.9 % (0.0-3.0); HEMOGLOBIN 9.5 g/dl (13.5-17.5); LYMPH # 3.1 10^3/uL (1.5-5.0); LYMPH % 28.4 % (24.0-44.0); MEAN CORPUSCULAR HEMOGLOBIN 24.4 pg (27.0-33.0); MEAN CORPUSCULAR HGB CONC 29.7 g/dl (32.0-36.5); MEAN CORPUSCULAR VOLUME 82.1 fl (80.0-96.0); NEUTROPHILS # 6.1 10^3/uL (1.5-8.5); NEUTROPHILS % 56.2 % (36.0-66.0); PLATELET COUNT, AUTOMATED 485 10^3/uL (150-450); WHITE BLOOD COUNT 10.8 10^3/uL (4.0-10.0)
[2022-12-19 05:33] LABS: ALBUMIN 2.2 G/DL (3.2-5.2); BLOOD UREA NITROGEN 25 MG/DL (9-23); CALCIUM LEVEL 7.9 MG/DL (8.3-10.6); CARBON DIOXIDE LEVEL 28 MMOL/L (20-31); CHLORIDE LEVEL 106 MMOL/L (98-107); CREATININE FOR GFR 0.54 MG/DL (0.70-1.30); GLOMERULAR FILTRATION RATE > 60.0 (>49); GLUCOSE, FASTING 88 MG/DL (74-106); MAGNESIUM LEVEL 1.7 MG/DL (1.8-2.4); POTASSIUM SERUM 4.3 MMOL/L (3.5-5.1); SODIUM LEVEL 141 MMOL/L (136-145)
[2022-12-19] MEDS: HEPARIN SOD (PORCINE) 5000UNITS/ML 1ML VIAL/SYRINGE SC SCH ×3 (06:17→21:16)
[2022-12-19] MEDS: PERCOCET 5MG/325MG TAB PO PRN ×3 (06:17→20:18)
[2022-12-19] MEDS: metroNIDAZOLE (FLAGYL) 500MG TABLET PO SCH ×3 (06:17→21:16)
[2022-12-19] MEDS: TIOTROPIUM INHALER/CAPSULE (SPIRIVA) INH SCH (08:24)
[2022-12-19] MEDS: POTASSIUM CHLORIDE 10MEQ SR TABLET PO SCH (08:47)
[2022-12-19] MEDS: PANTOPRAZOLE 40MG TAB (PROTONIX) PO SCH (08:58)
[2022-12-19] MEDS: amLODIPine 5 MG TAB PO SCH (08:58)
[2022-12-19] MEDS: GABAPENTIN 100 MG CAP PO SCH ×3 (08:58→20:17)
[2022-12-19] MEDS: ACETAMINOPHEN TAB 650MG DOSE (2X325MG) PO PRN (08:58)
[2022-12-19] MEDS: FUROSEMIDE 40MG/4ML VIAL IV SCH ×2 (08:58→16:14)
[2022-12-19] MEDS ORDERED: KETOROLAC 30 MG/ML 1ML VIAL IV PRN (10:45)
[2022-12-19] MEDS: MAG SULF 1GM/100ML (MAG RUN) 1 GM in IV 1 EA IV SCH ×3 (11:24→20:17)
[2022-12-19] MEDS: LABETALOL 100MG TAB PO SCH ×2 (11:32→20:17)
[2022-12-19] MEDS ORDERED: MAGNESIUM SULFATE 1GM/100ML D5W BAG (10MG/ML) As Ordered ONE ×2 (16:01→18:02)
[2022-12-19] MEDS: cefTRIAXone SOD 2 GM in D5W MINI-BAG PLUS 50 ML IV SCH (16:14)
[2022-12-20] VITALS (12 sets, daily range): BP systolic 113–145; BP diastolic 58–94; TEMP 97.4–98.6; O2SAT 93–97
[2022-12-20] MEDS: LEVALBUTEROL 1.25MG 0.5ML CONCENTRATE NEB NEB SCH ×4 (01:20→19:31)
[2022-12-20] MEDS: MORPHINE 2 MG/ML 1ML VIAL IV PRN ×5 (01:30→23:31)
[2022-12-20] MEDS: PERCOCET 5MG/325MG TAB PO PRN ×4 (04:08→20:37)
[2022-12-20 05:19] LABS: BASO # 0.1 10^3/uL (0.0-0.2); BASO % 0.7 % (0.0-1.0); EOS # 0.6 10^3/uL (0.0-0.5); HEMATOCRIT 30.9 % (42.0-52.0); HEMOGLOBIN 9.2 g/dl (13.5-17.5); LYMPH # 3.2 10^3/uL (1.5-5.0); MEAN CORPUSCULAR HEMOGLOBIN 24.8 pg (27.0-33.0); MEAN CORPUSCULAR HGB CONC 29.8 g/dl (32.0-36.5); MEAN CORPUSCULAR VOLUME 83.3 fl (80.0-96.0); MONO % 9.2 % (2.0-8.0); NEUTROPHILS # 6.1 10^3/uL (1.5-8.5); NEUTROPHILS % 55.6 % (36.0-66.0); PLATELET COUNT, AUTOMATED 487 10^3/uL (150-450); RED BLOOD COUNT 3.71 10^6/uL (4.30-6.10)
[2022-12-20 05:38] LABS: ALBUMIN 2.4 G/DL (3.2-5.2); BLOOD UREA NITROGEN 28 MG/DL (9-23); CALCIUM LEVEL 8.2 MG/DL (8.3-10.6); CARBON DIOXIDE LEVEL 27 MMOL/L (20-31); CHLORIDE LEVEL 107 MMOL/L (98-107); GLOMERULAR FILTRATION RATE > 60.0 (>49); GLUCOSE, FASTING 91 MG/DL (74-106); POTASSIUM SERUM 4.4 MMOL/L (3.5-5.1); SODIUM LEVEL 142 MMOL/L (136-145)
[2022-12-20] MEDS: metroNIDAZOLE (FLAGYL) 500MG TABLET PO SCH ×3 (05:43→22:44)
[2022-12-20] MEDS: KETOROLAC 30 MG/ML 1ML VIAL IV SCH ×4 (05:43→23:31)
[2022-12-20] MEDS: HEPARIN SOD (PORCINE) 5000UNITS/ML 1ML VIAL/SYRINGE SC SCH ×3 (05:43→22:44)
[2022-12-20] MEDS: TIOTROPIUM INHALER/CAPSULE (SPIRIVA) INH SCH (07:06)
[2022-12-20] MEDS: POTASSIUM CHLORIDE 10MEQ SR TABLET PO SCH (08:05)
[2022-12-20] MEDS: PANTOPRAZOLE 40MG TAB (PROTONIX) PO SCH (08:13)
[2022-12-20] MEDS: ALPRAZolam 0.5 MG TAB PO PRN ×3 (08:13→22:44)
[2022-12-20] MEDS: GABAPENTIN 100 MG CAP PO SCH ×3 (08:13→20:37)
[2022-12-20] MEDS: ACETAMINOPHEN TAB 650MG DOSE (2X325MG) PO PRN (08:13)
[2022-12-20] MEDS: FUROSEMIDE 40MG/4ML VIAL IV SCH ×2 (08:20→09:00)
[2022-12-20 09:29] LABS: MAGNESIUM LEVEL 2.2 MG/DL (1.8-2.4)
[2022-12-20] MEDS: LABETALOL 100MG TAB PO SCH ×2 (09:56→20:37)
[2022-12-20] MEDS: cefTRIAXone SOD 2 GM in D5W MINI-BAG PLUS 50 ML IV SCH (14:43)
[2022-12-20] MEDS: FUROSEMIDE 100MG/10ML VIAL IV SCH ×2 (16:18→18:54)
[2022-12-21] VITALS (13 sets, daily range): BP systolic 110–174; BP diastolic 63–97; TEMP 97.2–98.5; O2SAT 90–96
[2022-12-21] MEDS: LEVALBUTEROL 1.25MG 0.5ML CONCENTRATE NEB NEB SCH ×4 (01:37→20:00)
[2022-12-21 05:18] LABS: BASO # 0.1 10^3/uL (0.0-0.2); BASO % 0.8 % (0.0-1.0); EOS # 0.6 10^3/uL (0.0-0.5); EOS % 4.9 % (0.0-3.0); HEMATOCRIT 31.7 % (42.0-52.0); HEMOGLOBIN 9.3 g/dl (13.5-17.5); LYMPH # 2.8 10^3/uL (1.5-5.0); MEAN CORPUSCULAR HEMOGLOBIN 24.4 pg (27.0-33.0); MEAN CORPUSCULAR HGB CONC 29.3 g/dl (32.0-36.5); MEAN CORPUSCULAR VOLUME 83.2 fl (80.0-96.0); MONO % 8.8 % (2.0-8.0); NEUTROPHILS # 6.8 10^3/uL (1.5-8.5); NEUTROPHILS % 59.9 % (36.0-66.0); PLATELET COUNT, AUTOMATED 446 10^3/uL (150-450); RED BLOOD COUNT 3.81 10^6/uL (4.30-6.10); WHITE BLOOD COUNT 11.3 10^3/uL (4.0-10.0)
[2022-12-21] MEDS: metroNIDAZOLE (FLAGYL) 500MG TABLET PO SCH ×3 (05:25→21:59)
[2022-12-21] MEDS: HEPARIN SOD (PORCINE) 5000UNITS/ML 1ML VIAL/SYRINGE SC SCH ×3 (05:25→21:59)
[2022-12-21] MEDS: MORPHINE 2 MG/ML 1ML VIAL IV PRN ×5 (05:26→23:04)
[2022-12-21] MEDS: KETOROLAC 30 MG/ML 1ML VIAL IV SCH ×4 (05:26→23:03)
[2022-12-21 05:47] LABS: ALBUMIN 2.7 G/DL (3.2-5.2); BLOOD UREA NITROGEN 28 MG/DL (9-23); CALCIUM LEVEL 8.4 MG/DL (8.3-10.6); CARBON DIOXIDE LEVEL 26 MMOL/L (20-31); CHLORIDE LEVEL 107 MMOL/L (98-107); CREATININE FOR GFR 0.49 MG/DL (0.70-1.30); GLOMERULAR FILTRATION RATE > 60.0 (>49); GLUCOSE, FASTING 84 MG/DL (74-106); POTASSIUM SERUM 4.3 MMOL/L (3.5-5.1); SODIUM LEVEL 142 MMOL/L (136-145)
[2022-12-21] MEDS: ACETAMINOPHEN TAB 650MG DOSE (2X325MG) PO PRN ×2 (06:27→20:29)
[2022-12-21] MEDS: TIOTROPIUM INHALER/CAPSULE (SPIRIVA) INH SCH (07:24)
[2022-12-21] MEDS: POTASSIUM CHLORIDE 10MEQ SR TABLET PO SCH (09:00)
[2022-12-21] MEDS: FUROSEMIDE 100MG/10ML VIAL IV SCH ×2 (09:26→17:08)
[2022-12-21] MEDS: GABAPENTIN 100 MG CAP PO SCH ×3 (09:26→20:29)
[2022-12-21] MEDS: PANTOPRAZOLE 40MG TAB (PROTONIX) PO SCH (09:30)
[2022-12-21] MEDS: LABETALOL 100MG TAB PO SCH ×2 (09:30→20:29)
[2022-12-21] MEDS: ALPRAZolam 0.5 MG TAB PO PRN ×2 (11:15→20:29)
[2022-12-21] MEDS: PERCOCET 5MG/325MG TAB PO PRN ×2 (13:14→18:46)
[2022-12-21] MEDS: cefTRIAXone SOD 2 GM in D5W MINI-BAG PLUS 50 ML IV SCH (16:02)
[2022-12-22] MEDS: LEVALBUTEROL 1.25MG 0.5ML CONCENTRATE NEB NEB SCH ×4 (01:33→19:38)
[2022-12-22 04:08] VITALS: BP 127/77; TEMP 97.2; O2SAT 93
[2022-12-22] MEDS: KETOROLAC 30 MG/ML 1ML VIAL IV SCH ×4 (04:44→23:24)
[2022-12-22] MEDS: MORPHINE 2 MG/ML 1ML VIAL IV PRN ×5 (04:44→23:25)
[2022-12-22] MEDS: metroNIDAZOLE (FLAGYL) 500MG TABLET PO SCH ×3 (05:27→21:15)
[2022-12-22] MEDS: HEPARIN SOD (PORCINE) 5000UNITS/ML 1ML VIAL/SYRINGE SC SCH ×3 (05:27→21:14)
[2022-12-22 05:40] LABS: BASO # 0.1 10^3/uL (0.0-0.2); EOS # 0.5 10^3/uL (0.0-0.5); EOS % 4.7 % (0.0-3.0); HEMATOCRIT 32.1 % (42.0-52.0); HEMOGLOBIN 9.5 g/dl (13.5-17.5); LYMPH # 2.3 10^3/uL (1.5-5.0); LYMPH % 22.2 % (24.0-44.0); MEAN CORPUSCULAR HEMOGLOBIN 24.6 pg (27.0-33.0); MEAN CORPUSCULAR HGB CONC 29.6 g/dl (32.0-36.5); MEAN CORPUSCULAR VOLUME 83.2 fl (80.0-96.0); MONO # 0.9 10^3/uL (0.0-0.8); MONO % 8.7 % (2.0-8.0); NEUTROPHILS # 6.5 10^3/uL (1.5-8.5); NEUTROPHILS % 62.8 % (36.0-66.0); PLATELET COUNT, AUTOMATED 450 10^3/uL (150-450); RED BLOOD COUNT 3.86 10^6/uL (4.30-6.10); WHITE BLOOD COUNT 10.3 10^3/uL (4.0-10.0)
[2022-12-22 06:04] LABS: ALBUMIN 2.9 G/DL (3.2-5.2); BLOOD UREA NITROGEN 30 MG/DL (9-23); CALCIUM LEVEL 8.6 MG/DL (8.3-10.6); CARBON DIOXIDE LEVEL 28 MMOL/L (20-31); CHLORIDE LEVEL 106 MMOL/L (98-107); CREATININE FOR GFR 0.63 MG/DL (0.70-1.30); GLOMERULAR FILTRATION RATE > 60.0 (>49); GLUCOSE, FASTING 87 MG/DL (74-106); MAGNESIUM LEVEL 1.9 MG/DL (1.8-2.4); POTASSIUM SERUM 4.2 MMOL/L (3.5-5.1); SODIUM LEVEL 143 MMOL/L (136-145)
[2022-12-22] MEDS: ACETAMINOPHEN TAB 650MG DOSE (2X325MG) PO PRN ×3 (06:05→21:15)
[2022-12-22] MEDS: ALPRAZolam 0.5 MG TAB PO PRN ×3 (06:09→21:15)
[2022-12-22 07:28] VITALS: BP 167/96; TEMP 97.8; O2SAT 95
[2022-12-22] MEDS: TIOTROPIUM INHALER/CAPSULE (SPIRIVA) INH SCH (08:00)
[2022-12-22] MEDS: POTASSIUM CHLORIDE 10MEQ SR TABLET PO SCH (09:00)
[2022-12-22] MEDS: GABAPENTIN 100 MG CAP PO SCH ×3 (09:11→21:15)
[2022-12-22] MEDS: FUROSEMIDE 100MG/10ML VIAL IV SCH ×2 (09:11→17:40)
[2022-12-22] MEDS: PANTOPRAZOLE 40MG TAB (PROTONIX) PO SCH (09:11)
[2022-12-22] MEDS: PERCOCET 5MG/325MG TAB PO PRN ×2 (10:25→18:29)
[2022-12-22 12:00] VITALS: BP 151/89; TEMP 98.3; O2SAT 97
[2022-12-22 16:00] VITALS: BP 137/75; TEMP 98.7; O2SAT 96
[2022-12-22] MEDS: cefTRIAXone SOD 2 GM in D5W MINI-BAG PLUS 50 ML IV SCH (16:41)
[2022-12-22 19:33] VITALS: BP 154/88; TEMP 98.4; O2SAT 97
[2022-12-22 23:15] VITALS: BP 150/79; TEMP 97.5; O2SAT 98
[2022-12-23] MEDS: LEVALBUTEROL 1.25MG 0.5ML CONCENTRATE NEB NEB SCH ×4 (02:00→18:50)
[2022-12-23 03:31] VITALS: BP 141/90; TEMP 97.5; O2SAT 96
[2022-12-23] MEDS: KETOROLAC 30 MG/ML 1ML VIAL IV SCH ×2 (05:07→11:29)
[2022-12-23] MEDS: HEPARIN SOD (PORCINE) 5000UNITS/ML 1ML VIAL/SYRINGE SC SCH ×3 (05:07→21:10)
[2022-12-23] MEDS: metroNIDAZOLE (FLAGYL) 500MG TABLET PO SCH ×3 (05:08→21:11)
[2022-12-23] MEDS: MORPHINE 2 MG/ML 1ML VIAL IV PRN ×2 (05:08→11:29)
[2022-12-23 05:17] LABS: BASO # 0.1 10^3/uL (0.0-0.2); BASO % 0.7 % (0.0-1.0); EOS # 0.5 10^3/uL (0.0-0.5); EOS % 4.5 % (0.0-3.0); HEMATOCRIT 33.5 % (42.0-52.0); HEMOGLOBIN 9.9 g/dl (13.5-17.5); LYMPH # 2.9 10^3/uL (1.5-5.0); LYMPH % 23.8 % (24.0-44.0); MEAN CORPUSCULAR HEMOGLOBIN 25.1 pg (27.0-33.0); MEAN CORPUSCULAR HGB CONC 29.6 g/dl (32.0-36.5); MEAN CORPUSCULAR VOLUME 84.8 fl (80.0-96.0); MONO # 1.1 10^3/uL (0.0-0.8); MONO % 9.3 % (2.0-8.0); NEUTROPHILS # 7.3 10^3/uL (1.5-8.5); NEUTROPHILS % 61.2 % (36.0-66.0); PLATELET COUNT, AUTOMATED 455 10^3/uL (150-450); RED BLOOD COUNT 3.95 10^6/uL (4.30-6.10)
[2022-12-23 05:32] LABS: ALBUMIN 2.7 G/DL (3.2-5.2); BLOOD UREA NITROGEN 32 MG/DL (9-23); CALCIUM LEVEL 8.7 MG/DL (8.3-10.6); CARBON DIOXIDE LEVEL 28 MMOL/L (20-31); CHLORIDE LEVEL 106 MMOL/L (98-107); CREATININE FOR GFR 0.75 MG/DL (0.70-1.30); GLOMERULAR FILTRATION RATE > 60.0 (>49); GLUCOSE, FASTING 89 MG/DL (74-106); MAGNESIUM LEVEL 1.9 MG/DL (1.8-2.4); POTASSIUM SERUM 4.3 MMOL/L (3.5-5.1); SODIUM LEVEL 142 MMOL/L (136-145)
[2022-12-23] MEDS: ALPRAZolam 0.5 MG TAB PO PRN ×3 (06:48→21:10)
[2022-12-23] MEDS: ACETAMINOPHEN TAB 650MG DOSE (2X325MG) PO PRN (06:50)
[2022-12-23 08:00] VITALS: BP 138/83; TEMP 97.2; O2SAT 97
[2022-12-23] MEDS: TIOTROPIUM INHALER/CAPSULE (SPIRIVA) INH SCH (08:00)
[2022-12-23] MEDS: POTASSIUM CHLORIDE 10MEQ SR TABLET PO SCH (08:33)
[2022-12-23] MEDS: PANTOPRAZOLE 40MG TAB (PROTONIX) PO SCH (08:44)
[2022-12-23] MEDS: GABAPENTIN 100 MG CAP PO SCH ×3 (08:44→21:10)
[2022-12-23] MEDS: PERCOCET 5MG/325MG TAB PO PRN ×3 (08:44→22:55)
[2022-12-23] MEDS: FUROSEMIDE 100MG/10ML VIAL IV SCH ×2 (08:45→17:09)
[2022-12-23 13:10] VITALS: BP 141/88; TEMP 97.5; O2SAT 93
[2022-12-23] MEDS: cefTRIAXone SOD 2 GM in D5W MINI-BAG PLUS 50 ML IV SCH (14:21)
[2022-12-23 18:30] VITALS: BP 148/80; TEMP 98.1; O2SAT 96
[2022-12-23 19:28] VITALS: BP 152/88; TEMP 98.2; O2SAT 97
[2022-12-23] MEDS ORDERED: ENTER DRUG NAME HERE (PATIENT'S OWN MED) SL SCH (21:00)
[2022-12-23] MEDS ORDERED: BUPRENORPHINE/NALOXONE 2-0.5MG SUBLINGUAL TABLET(SUBOXONE) SL SCH (21:00)
[2022-12-23] MEDS: BUPRENORPHINE NALOXONE SL SCH (21:19)
[2022-12-23 22:56] VITALS: BP 148/88; TEMP 98.5; O2SAT 98
[2022-12-24] MEDS: LEVALBUTEROL 1.25MG 0.5ML CONCENTRATE NEB NEB SCH ×2 (01:50→08:00)
[2022-12-24] MEDS: ACETAMINOPHEN TAB 650MG DOSE (2X325MG) PO PRN (02:39)
[2022-12-24] MEDS: PERCOCET 5MG/325MG TAB PO PRN ×2 (03:33→09:36)
[2022-12-24 03:35] VITALS: BP 150/90; TEMP 98.3; O2SAT 97
[2022-12-24] MEDS: metroNIDAZOLE (FLAGYL) 500MG TABLET PO SCH (05:36)
[2022-12-24] MEDS: HEPARIN SOD (PORCINE) 5000UNITS/ML 1ML VIAL/SYRINGE SC SCH (05:36)
[2022-12-24 06:11] LABS: HEMATOCRIT 34.4 % (42.0-52.0); HEMOGLOBIN 10.2 g/dl (13.5-17.5); MEAN CORPUSCULAR HEMOGLOBIN 24.9 pg (27.0-33.0); MEAN CORPUSCULAR HGB CONC 29.7 g/dl (32.0-36.5); MEAN CORPUSCULAR VOLUME 84.1 fl (80.0-96.0); PLATELET COUNT, AUTOMATED 452 10^3/uL (150-450); RED BLOOD COUNT 4.09 10^6/uL (4.30-6.10); WHITE BLOOD COUNT 12.4 10^3/uL (4.0-10.0)
[2022-12-24 06:34] LABS: ALBUMIN 3.1 G/DL (3.2-5.2); BLOOD UREA NITROGEN 31 MG/DL (9-23); CALCIUM LEVEL 8.7 MG/DL (8.3-10.6); CARBON DIOXIDE LEVEL 25 MMOL/L (20-31); CHLORIDE LEVEL 104 MMOL/L (98-107); CREATININE FOR GFR 0.58 MG/DL (0.70-1.30); GLOMERULAR FILTRATION RATE > 60.0 (>49); GLUCOSE, FASTING 88 MG/DL (74-106); POTASSIUM SERUM 4.9 MMOL/L (3.5-5.1); SODIUM LEVEL 140 MMOL/L (136-145)
[2022-12-24 07:26] LABS: ATYPICAL LYMPH 6 % (0-5); BASOPHILS 2 % (0-1); EOSINOPHILS 3 % (0-3); LYMPHOCYTES 39 % (16-44); MONOCYTES 5 % (0-5); NEUTROPHILS 45 % (28-66); PLATELET ESTIMATE INCREASED (NORMAL)
[2022-12-24 07:27] LABS: MICROCYTOSIS 1+; POIKILOCYTOSIS 2+
[2022-12-24 08:00] VITALS: BP 145/81; TEMP 97.6; O2SAT 96
[2022-12-24] MEDS: TIOTROPIUM INHALER/CAPSULE (SPIRIVA) INH SCH (08:00)
[2022-12-24] MEDS: FUROSEMIDE 100MG/10ML VIAL IV SCH ×2 (09:00→09:37)
[2022-12-24] MEDS ORDERED: MELOXICAM (MOBIC) 7.5 MG TAB PO SCH (09:00)
[2022-12-24] MEDS: ALPRAZolam 0.5 MG TAB PO PRN (09:35)
[2022-12-24] MEDS: BUPRENORPHINE NALOXONE SL SCH (09:35)
[2022-12-24] MEDS: GABAPENTIN 100 MG CAP PO SCH (09:36)
[2022-12-24] MEDS: PANTOPRAZOLE 40MG TAB (PROTONIX) PO SCH (09:36)
[2022-12-24] MEDS: POTASSIUM CHLORIDE 10MEQ SR TABLET PO SCH (09:36)
[2022-12-24] MEDS ORDERED: MELO7.5T35 PO (11:09)
[2022-12-24] MEDS ORDERED: AMOX250REC PO (11:09)
[2022-12-24] MEDS ORDERED: FURO40TA2 PO (11:10)
[2022-12-24] MEDS ORDERED: METR-265 PO (11:10)
[2022-12-24] MEDS ORDERED: POTA-151 PO (11:10)
[2022-12-24] MEDS ORDERED: AMOXICILLIN SUSP 250MG/5ML 100ML BOTTLE (FOR INPATIENT ORDERS) PO SCH (14:00)
== END 2022-12-24 12:41 | disposition home or self-care (01) | DRG 871 ==
LOC: M ED 22:54 → M ED INP 12-08 03:07 → M ICU 12-08 04:20 → M PCU 12-12 01:30
PROVIDERS: ADMIT Internal Medicine; ATTEND Internal Medicine
PROC: 0W9930Z Drainage of Right Pleural Cavity with Drainage Device, Percutaneous Approach (ICD-10-PCS; principal; 2022-12-08)
PROC: 3E0L3GC Introduction of Other Therapeutic Substance into Pleural Cavity, Percutaneous Approach (ICD-10-PCS; 2022-12-08)
PROC: B246ZZZ Ultrasonography of Right and Left Heart (ICD-10-PCS; 2022-12-16)
PROC: 30233J1 Transfusion of Nonautologous Serum Albumin into Peripheral Vein, Percutaneous Approach (ICD-10-PCS; 2022-12-17)
DX: A41.9 Sepsis, unspecified organism (principal); J96.01 Acute respiratory failure with hypoxia; J85.0 Gangrene and necrosis of lung; G12.21 Amyotrophic lateral sclerosis; F11.20 Opioid dependence, uncomplicated; R64 Cachexia; J98.11 Atelectasis; J44.1 Chronic obstructive pulmonary disease with (acute) exacerbation; J90 Pleural effusion, not elsewhere classified; I10 Essential (primary) hypertension; F17.210 Nicotine dependence, cigarettes, uncomplicated; Z66 Do not resuscitate; R13.12 Dysphagia, oropharyngeal phase; E78.5 Hyperlipidemia, unspecified; R65.20 Severe sepsis without septic shock; I25.10 Atherosclerotic heart disease of native coronary artery without angina pectoris; M54.50 Low back pain, unspecified; G89.29 Other chronic pain; K21.9 Gastro-esophageal reflux disease without esophagitis; L89.151 Pressure ulcer of sacral region, stage 1; E87.6 Hypokalemia; F41.9 Anxiety disorder, unspecified; F40.00 Agoraphobia, unspecified; B95.4 Other streptococcus as the cause of diseases classified elsewhere; R60.0 Localized edema; Z79.899 Other long term (current) drug therapy; Z86.73 Personal history of transient ischemic attack (TIA), and cerebral infarction without residual deficits; Z88.5 Allergy status to narcotic agent; R00.1 Bradycardia, unspecified; E88.09 Other disorders of plasma-protein metabolism, not elsewhere classified

== ENCOUNTER → 2023-03-27 | Outpatient (CLI) | payer MEDICARE, MEDICAID ==
[~2023-03-27] VITALS: Ht 165.1 cm; Wt 58.1 kg
[~2023-03-27] MED LIST changes: +AMOX250REC PO; +FURO40TA2 PO; +MELO7.5T35 PO; +METH-1177 PO; +METR-265 PO; +OXYC10TA12 PO; +POTA-151 PO
[2023-03-27 14:47] VITALS: O2SAT 94
== END ==
LOC: M PAL 14:25
PROVIDERS: ATTEND Nurse Practitioner Adult Health
DX: G12.21 Amyotrophic lateral sclerosis (principal); F40.00 Agoraphobia, unspecified; F41.9 Anxiety disorder, unspecified; G89.29 Other chronic pain; M62.81 Muscle weakness (generalized); R03.0 Elevated blood-pressure reading, without diagnosis of hypertension; J44.9 Chronic obstructive pulmonary disease, unspecified; R13.10 Dysphagia, unspecified; R29.6 Repeated falls; F17.210 Nicotine dependence, cigarettes, uncomplicated; Z66 Do not resuscitate; Z51.5 Encounter for palliative care; Z79.891 Long term (current) use of opiate analgesic; Z79.899 Other long term (current) drug therapy; Z88.5 Allergy status to narcotic agent; Z86.73 Personal history of transient ischemic attack (TIA), and cerebral infarction without residual deficits

== ENCOUNTER → 2023-04-07 | Outpatient (CLI) | payer MEDICARE, MEDICAID ==
[~2023-04-07] VITALS: Ht 170.2 cm; Wt 59.1 kg
[~2023-04-07] MED LIST changes: +FAMO10TA53 PO
[2023-04-07 14:12] VITALS: BP 226/124; O2SAT 97
[2023-04-07 15:25] VITALS: BP 174/90
== END ==
LOC: M PAL 14:03
PROVIDERS: ATTEND Nurse Practitioner Adult Health
DX: G12.21 Amyotrophic lateral sclerosis (principal); F40.00 Agoraphobia, unspecified; F41.9 Anxiety disorder, unspecified; G89.29 Other chronic pain; M62.81 Muscle weakness (generalized); R03.0 Elevated blood-pressure reading, without diagnosis of hypertension; J44.9 Chronic obstructive pulmonary disease, unspecified; R13.10 Dysphagia, unspecified; R29.6 Repeated falls; F17.210 Nicotine dependence, cigarettes, uncomplicated; Z66 Do not resuscitate; Z51.5 Encounter for palliative care; Z79.891 Long term (current) use of opiate analgesic; Z79.899 Other long term (current) drug therapy; Z88.5 Allergy status to narcotic agent; Z86.73 Personal history of transient ischemic attack (TIA), and cerebral infarction without residual deficits

== ENCOUNTER → 2023-05-08 | Outpatient (CLI) | payer MEDICARE, MEDICAID ==
[~2023-05-08] VITALS: Ht 162.6 cm; Wt 59.2 kg
[~2023-05-08] MED LIST changes: +OXYC10TA3 PO
[2023-05-08 14:11] VITALS: O2SAT 96
== END ==
LOC: M PAL 13:51
PROVIDERS: ATTEND Nurse Practitioner Adult Health
DX: G89.29 Other chronic pain (principal); G12.21 Amyotrophic lateral sclerosis; F40.00 Agoraphobia, unspecified; J44.9 Chronic obstructive pulmonary disease, unspecified; R03.0 Elevated blood-pressure reading, without diagnosis of hypertension; F41.9 Anxiety disorder, unspecified; M62.81 Muscle weakness (generalized); F17.210 Nicotine dependence, cigarettes, uncomplicated; Z66 Do not resuscitate; Z51.5 Encounter for palliative care; Z79.891 Long term (current) use of opiate analgesic; Z79.899 Other long term (current) drug therapy; Z88.5 Allergy status to narcotic agent; Z86.73 Personal history of transient ischemic attack (TIA), and cerebral infarction without residual deficits

== ENCOUNTER → 2023-05-09 | Outpatient (CLI) | payer MEDICARE, MEDICAID ==
[2023-05-09 18:12] LABS: HEMATOCRIT 49.4 % (42.0-52.0); HEMOGLOBIN 15.5 g/dl (13.5-17.5); MEAN CORPUSCULAR HEMOGLOBIN 26.5 pg (27.0-33.0); MEAN CORPUSCULAR HGB CONC 31.4 g/dl (32.0-36.5); MEAN CORPUSCULAR VOLUME 84.6 fl (80.0-96.0); PLATELET COUNT, AUTOMATED 175 10^3/uL (150-450); RED BLOOD COUNT 5.84 10^6/uL (4.30-6.10); WHITE BLOOD COUNT 12.4 10^3/uL (4.0-10.0)
[2023-05-09 18:35] LABS: ALBUMIN 3.4 G/DL (3.2-5.2); ALKALINE PHOSPHATASE 112 U/L (46-116); ALT/SGPT 14 U/L (7.0-40); AST/SGOT 17 U/L (<34); BILIRUBIN,TOTAL 0.4 MG/DL (0.3-1.2); BLOOD UREA NITROGEN 14 MG/DL (9-23); CALCIUM LEVEL 9.4 MG/DL (8.3-10.6); CARBON DIOXIDE LEVEL 26 MMOL/L (20-31); CHLORIDE LEVEL 105 MMOL/L (98-107); CREATININE FOR GFR 0.74 MG/DL (0.70-1.30); GLOMERULAR FILTRATION RATE > 60.0 (>49); GLUCOSE, FASTING 84 MG/DL (74-106); POTASSIUM SERUM 4.4 MMOL/L (3.5-5.1); SODIUM LEVEL 139 MMOL/L (136-145); TOTAL PROTEIN 7.3 G/DL (5.7-8.2)
== END ==
LOC: M PLAIMG 16:01
PROVIDERS: ATTEND Student in an Organized Health Care Education/Training Program
DX: R05.3 Chronic cough (principal); Z95.828 Presence of other vascular implants and grafts; J98.4 Other disorders of lung; R06.02 Shortness of breath

== ENCOUNTER → 2023-05-29 | Outpatient (CLI) | payer MEDICARE, MEDICAID ==
[~2023-05-29] VITALS: Ht 170.2 cm; Wt 59.2 kg
[~2023-05-29] MED LIST changes: +COPP2CAP PO; +GNP250TA9 PO; +MUCI1TAB16 PO; +NS3NEB INH; +PROBCAP14 PO; +RA B1TAB7 PO
[2023-05-29 14:10] VITALS: BP 190/125; O2SAT 93
[2023-05-29 15:48] VITALS: BP 200/110
== END ==
LOC: M PAL 13:46
PROVIDERS: ATTEND Nurse Practitioner Adult Health
DX: G12.21 Amyotrophic lateral sclerosis (principal); G89.29 Other chronic pain; F40.00 Agoraphobia, unspecified; J44.9 Chronic obstructive pulmonary disease, unspecified; R03.0 Elevated blood-pressure reading, without diagnosis of hypertension; F41.9 Anxiety disorder, unspecified; M62.81 Muscle weakness (generalized); F17.210 Nicotine dependence, cigarettes, uncomplicated; Z66 Do not resuscitate; Z51.5 Encounter for palliative care; Z79.891 Long term (current) use of opiate analgesic; Z79.899 Other long term (current) drug therapy; Z79.51 Long term (current) use of inhaled steroids

== ENCOUNTER → 2023-06-12 | Outpatient (CLI) | payer MEDICARE, MEDICAID | LOC: M PAL 13:09 | PROVIDERS: ATTEND Nurse Practitioner Adult Health | DX: G12.21 Amyotrophic lateral sclerosis (principal); G89.29 Other chronic pain; F40.00 Agoraphobia, unspecified; J44.9 Chronic obstructive pulmonary disease, unspecified; R13.10 Dysphagia, unspecified; R03.0 Elevated blood-pressure reading, without diagnosis of hypertension; F41.9 Anxiety disorder, unspecified; M62.81 Muscle weakness (generalized); F17.210 Nicotine dependence, cigarettes, uncomplicated; Z66 Do not resuscitate; Z51.5 Encounter for palliative care; Z79.51 Long term (current) use of inhaled steroids; Z79.891 Long term (current) use of opiate analgesic; Z79.899 Other long term (current) drug therapy ==

== ENCOUNTER → 2023-07-10 | Outpatient (CLI) | payer MEDICARE, MEDICAID | LOC: M PAL 14:43 | PROVIDERS: ATTEND Nurse Practitioner Adult Health | DX: G12.21 Amyotrophic lateral sclerosis (principal); G89.29 Other chronic pain; F40.00 Agoraphobia, unspecified; J44.9 Chronic obstructive pulmonary disease, unspecified; R13.10 Dysphagia, unspecified; R03.0 Elevated blood-pressure reading, without diagnosis of hypertension; F41.9 Anxiety disorder, unspecified; M25.552 Pain in left hip; M62.81 Muscle weakness (generalized); M54.50 Low back pain, unspecified; F17.210 Nicotine dependence, cigarettes, uncomplicated; Z66 Do not resuscitate; Z51.5 Encounter for palliative care; Z79.51 Long term (current) use of inhaled steroids; Z79.891 Long term (current) use of opiate analgesic; Z79.899 Other long term (current) drug therapy ==

== ENCOUNTER → 2023-08-11 | Outpatient (CLI) | payer MEDICARE, MEDICAID ==
[~2023-08-11] VITALS: Ht 170.2 cm; Wt 58.2 kg
[2023-08-11 13:26] VITALS: BP 166/107; O2SAT 93
== END ==
LOC: M PAL 13:06
PROVIDERS: ATTEND Nurse Practitioner Adult Health
DX: G12.21 Amyotrophic lateral sclerosis (principal); G89.29 Other chronic pain; F40.00 Agoraphobia, unspecified; J44.9 Chronic obstructive pulmonary disease, unspecified; R13.10 Dysphagia, unspecified; R03.0 Elevated blood-pressure reading, without diagnosis of hypertension; R41.9 Unspecified symptoms and signs involving cognitive functions and awareness; M25.552 Pain in left hip; M62.81 Muscle weakness (generalized); M54.50 Low back pain, unspecified; F17.210 Nicotine dependence, cigarettes, uncomplicated; Z66 Do not resuscitate; Z51.5 Encounter for palliative care; Z79.51 Long term (current) use of inhaled steroids; Z79.891 Long term (current) use of opiate analgesic; Z79.899 Other long term (current) drug therapy; Z88.5 Allergy status to narcotic agent

== ENCOUNTER → 2023-09-18 | Outpatient (CLI) | payer MEDICARE, MEDICAID ==
[~2023-09-18] VITALS: Ht 170.2 cm; Wt 58.4 kg
[~2023-09-18] MED LIST changes: +CEPH500C PO; +METH5TA PO
[2023-09-18 14:17] VITALS: BP 180/118; O2SAT 90
== END ==
LOC: M PAL 14:00
PROVIDERS: ATTEND Nurse Practitioner Adult Health
DX: G12.21 Amyotrophic lateral sclerosis (principal); G89.29 Other chronic pain; W57.XXXA Bitten or stung by nonvenomous insect and other nonvenomous arthropods, initial encounter; F40.00 Agoraphobia, unspecified; J44.9 Chronic obstructive pulmonary disease, unspecified; R13.10 Dysphagia, unspecified; R03.0 Elevated blood-pressure reading, without diagnosis of hypertension; R41.9 Unspecified symptoms and signs involving cognitive functions and awareness; M25.552 Pain in left hip; M62.81 Muscle weakness (generalized); M54.50 Low back pain, unspecified; F17.210 Nicotine dependence, cigarettes, uncomplicated; Z66 Do not resuscitate; Z51.5 Encounter for palliative care; Z79.51 Long term (current) use of inhaled steroids; Z79.891 Long term (current) use of opiate analgesic; Z79.899 Other long term (current) drug therapy; Z88.5 Allergy status to narcotic agent; Z86.73 Personal history of transient ischemic attack (TIA), and cerebral infarction without residual deficits; R29.6 Repeated falls

== ENCOUNTER → 2023-10-23 | Outpatient (CLI) | payer MEDICARE, MEDICAID ==
[~2023-10-23] MED LIST changes: +DULO1CAP6 PO; +FAMO20TA PO; +ONDA-282 PO; -ONDA4TAB6 PO; +RANI15TA PO
== END ==
LOC: M PAL 14:42
PROVIDERS: ATTEND Nurse Practitioner Adult Health
DX: G12.21 Amyotrophic lateral sclerosis (principal); G89.29 Other chronic pain; W57.XXXA Bitten or stung by nonvenomous insect and other nonvenomous arthropods, initial encounter; F40.00 Agoraphobia, unspecified; J44.9 Chronic obstructive pulmonary disease, unspecified; K21.9 Gastro-esophageal reflux disease without esophagitis; R13.10 Dysphagia, unspecified; R03.0 Elevated blood-pressure reading, without diagnosis of hypertension; R41.9 Unspecified symptoms and signs involving cognitive functions and awareness; M62.81 Muscle weakness (generalized); F17.210 Nicotine dependence, cigarettes, uncomplicated; Z66 Do not resuscitate; Z51.5 Encounter for palliative care; Z79.891 Long term (current) use of opiate analgesic; Z79.899 Other long term (current) drug therapy; Z88.5 Allergy status to narcotic agent; Z86.73 Personal history of transient ischemic attack (TIA), and cerebral infarction without residual deficits; R29.6 Repeated falls

== ENCOUNTER 2023-11-23 05:57 | Inpatient (IN) | payer MEDICARE, MEDICAID ==
[~2023-11-23] VITALS: Ht 175.3 cm; Wt 54.2 kg
[~2023-11-23 05:57] MED LIST changes: +OXYC20TA2 PO; +SPIR12.9 INH; -SPIR12.9 PO
[2023-11-23 08:05] LABS: HEMATOCRIT 49.6 % (42.0-52.0); HEMOGLOBIN 17.1 g/dl (13.5-17.5); MEAN CORPUSCULAR HEMOGLOBIN 28.1 pg (27.0-33.0); MEAN CORPUSCULAR HGB CONC 34.5 g/dl (32.0-36.5); MEAN CORPUSCULAR VOLUME 81.4 fl (80.0-96.0); RED BLOOD COUNT 6.09 10^6/uL (4.30-6.10); WHITE BLOOD COUNT 6.6 10^3/uL (4.0-10.0)
[2023-11-23 08:06] LABS: PLATELET COUNT, AUTOMATED 61 10^3/uL (150-450)
[2023-11-23 08:22] LABS: ETHYL ALCOHOL (ETHANOL) < 0.003 % (0.000-0.010)
[2023-11-23 08:25] LABS: ALBUMIN 2.4 G/DL (3.2-5.2); ALKALINE PHOSPHATASE 311 U/L (46-116); ALT/SGPT 124 U/L (7.0-40); AST/SGOT 256 U/L (<34); BILIRUBIN,DIRECT 0.4 MG/DL (<0.4); BILIRUBIN,TOTAL 0.9 MG/DL (0.3-1.2); BLOOD UREA NITROGEN 44 MG/DL (9-23); CALCIUM LEVEL 8.2 MG/DL (8.3-10.6); CARBON DIOXIDE LEVEL 29 MMOL/L (20-31); CHLORIDE LEVEL 97 MMOL/L (98-107); CPK CREATINE PHOSPHOKINASE 219 U/L (46-171); CREATININE FOR GFR 0.63 MG/DL (0.70-1.30); GLOMERULAR FILTRATION RATE > 60.0 (>49); GLUCOSE, FASTING 128 MG/DL (74-106); POTASSIUM SERUM 5.2 MMOL/L (3.5-5.1); SODIUM LEVEL 130 MMOL/L (136-145); TOTAL PROTEIN 6.4 G/DL (5.7-8.2)
[2023-11-23 08:28] LABS: ANISOCYTOSIS 1+; ATYPICAL LYMPH 2 % (0-5); LYMPHOCYTES 13 % (16-44); MONOCYTES 7 % (0-5); NEUTROPHILS 76 % (28-66); PLATELET ESTIMATE DECREASED (NORMAL)
[2023-11-23] MEDS: oxyCODONE 5MG TAB PO ONE (08:44)
[2023-11-23 10:29] LABS: AMPHETAMINES LEVEL URINE NEGATIVE (NEGATIVE); BARBITURATES URINE NEGATIVE (NEGATIVE); CANNABINOIDS URINE NEGATIVE (NEGATIVE); COCAINE METABOLITE URINE NEGATIVE (NEGATIVE); PHENCYCLIDINE URINE NEGATIVE (NEGATIVE)
[2023-11-23 10:33] LABS: BENZODIAZEPINES URINE POSITIVE (NEGATIVE); METHADONE URINE POSITIVE (NEGATIVE); OPIATES URINE POSITIVE (NEGATIVE)
[2023-11-23] MEDS: LOSARTAN 25 MG TAB PO ONE (11:17)
[2023-11-23 12:34] LABS: ABG BASE EXCESS 6.1 (-2.0-2.0); ABG HCO3 29.7 MMOL/L (22.0-26.0); ABG O2 SATURATION 90.9 % (95.0-99.0); ABG PARTIAL PRESSURE CO2 39.1 mmHg (35.0-45.0); ABG PARTIAL PRESSURE O2 53.9 mmHg (75.0-100.0); ABG STANDARD HCO3 29.8 MMOL/L. (22.0-26.0); ABG TOTAL CO2 30.9 MMOL/L (23.0-31.0); ABG pH (ARTERIAL) 7.498 UNITS (7.350-7.450)
[2023-11-23] MEDS: LABETALOL 100MG/20ML VIAL IV STA (12:38)
[2023-11-23] MEDS ORDERED: LABE100T6 PO (13:24)
[2023-11-23] MEDS ORDERED: LOSA25TA13 PO (13:24)
[2023-11-23] MEDS ORDERED: PANT20TA51 PO (13:24)
[2023-11-23] MEDS ORDERED: med rec comment (13:25)
[2023-11-23 14:30] VITALS: BP 154/90; TEMP 97.8; O2SAT 94
[2023-11-23] MEDS: METOPROLOL TART 25 MG TABLET PO SCH (14:58)
[2023-11-23] MEDS: NS 1,000 ML IV SCH (14:58)
[2023-11-23 15:31] VITALS: BP 154/84; TEMP 97.8; O2SAT 94
[2023-11-23] MEDS ORDERED: SODIUM CHLORIDE 0.9% 3ML NEB SOLUTION FOR INHALATION INH PRN (17:10)
[2023-11-23 17:42] LABS: HEPATITIS B SURFACE ANTIGEN NEGATIVE (NEGATIVE)
[2023-11-23 18:02] LABS: HEPATITIS C VIRUS ABY INDEX < 0.02 INDEX (<0.8)
[2023-11-23 18:03] LABS: HEPATITIS B CORE ANTIBODY IGM NEGATIVE (NEGATIVE)
[2023-11-23 18:15] LABS: INR 1.23; PARTIAL THROMBOPLASTIN TIME 27.8 SECONDS (24.8-34.2); PROTHROMBIN TIME 15.2 SECONDS (12.5-14.5)
[2023-11-23] MEDS: oxyCODONE 5MG TAB PO PRN (18:32)
[2023-11-23] MEDS: LEVALBUTEROL 1.25MG 0.5ML CONCENTRATE NEB NEB SCH (19:46)
[2023-11-23] MEDS: IPRATROPIUM 0.02% SOLN 0.5MG 2.5ML NEB NEB SCH (19:46)
[2023-11-23] MEDS: ADVAIR HFA 115/21MCG INHALER INH SCH (19:46)
[2023-11-23 19:57] VITALS: BP 158/82; TEMP 97.9; O2SAT 90
[2023-11-23] MEDS: METHADONE 5MG TAB PO SCH (20:40)
[2023-11-23] MEDS: guaiFENesin ER TABLET 600 MG TAB PO SCH (20:40)
[2023-11-23] MEDS: BACLOFEN 10 MG TAB PO SCH (20:41)
[2023-11-23] MEDS: GABAPENTIN 100 MG CAP PO SCH (20:41)
[2023-11-23] MEDS: METHADONE 10MG TAB PO SCH (20:41)
[2023-11-23] MEDS: FAMOTIDINE 20 MG TAB PO SCH (20:41)
[2023-11-23 23:37] VITALS: BP 117/76; TEMP 97.2; O2SAT 92
[2023-11-24] VITALS (13 sets, daily range): BP systolic 142–160; BP diastolic 80–95; TEMP 97.2–99.8; O2SAT 84–94
[2023-11-24 03:33] LABS: ABG BASE EXCESS 0.6 (-2.0-2.0); ABG HCO3 23.7 MMOL/L (22.0-26.0); ABG O2 SATURATION 94.6 % (95.0-99.0); ABG PARTIAL PRESSURE CO2 34.3 mmHg (35.0-45.0); ABG PARTIAL PRESSURE O2 68.2 mmHg (75.0-100.0); ABG STANDARD HCO3 24.9 MMOL/L. (22.0-26.0); ABG TOTAL CO2 24.8 MMOL/L (23.0-31.0); ABG pH (ARTERIAL) 7.458 UNITS (7.350-7.450)
[2023-11-24] MEDS: cefTRIAXone SOD 1 GM in D5W MINI-BAG PLUS 50 ML IV SCH (04:58)
[2023-11-24 05:00] LABS: HEMATOCRIT 45.2 % (42.0-52.0); HEMOGLOBIN 15.6 g/dl (13.5-17.5); MEAN CORPUSCULAR HEMOGLOBIN 28.3 pg (27.0-33.0); MEAN CORPUSCULAR HGB CONC 34.5 g/dl (32.0-36.5); RED BLOOD COUNT 5.51 10^6/uL (4.30-6.10); WHITE BLOOD COUNT 5.2 10^3/uL (4.0-10.0)
[2023-11-24 05:07] LABS: PLATELET COUNT, AUTOMATED 63 10^3/uL (150-450)
[2023-11-24 05:23] LABS: ALKALINE PHOSPHATASE 315 U/L (46-116); ALT/SGPT 113 U/L (7.0-40); AST/SGOT 175 U/L (<34); BILIRUBIN,TOTAL 1.1 MG/DL (0.3-1.2); BLOOD UREA NITROGEN 28 MG/DL (9-23); CALCIUM LEVEL 7.8 MG/DL (8.3-10.6); CARBON DIOXIDE LEVEL 28 MMOL/L (20-31); CHLORIDE LEVEL 101 MMOL/L (98-107); CREATININE FOR GFR 0.54 MG/DL (0.70-1.30); GLOMERULAR FILTRATION RATE > 60.0 (>49); GLUCOSE, FASTING 111 MG/DL (74-106); POTASSIUM SERUM 3.5 MMOL/L (3.5-5.1); SODIUM LEVEL 133 MMOL/L (136-145); TOTAL PROTEIN 5.5 G/DL (5.7-8.2)
[2023-11-24 08:14] LABS: APPEARANCE, URINE HAZY (CLEAR); BACTERIA, URINE AUTO NEGATIVE (NEGATIVE); BILIRUBIN, URINE AUTO NEGATIVE (NEGATIVE); BLOOD, URINE BLOOD 3+ (NEGATIVE); COLOR, URINE YELLOW (YELLOW); GLUCOSE, URINE (UA) AUTO NEGATIVE (NEGATIVE); KETONE, URINE AUTO NEGATIVE (NEGATIVE); LEUKOCYTE ESTERASE, URINE AUTO NEGATIVE (NEGATIVE); MUCUS, URINE SMALL (NEGATIVE); NITRITE, URINE AUTO NEGATIVE (NEGATIVE); PROTEIN, URINE AUTO 2+ mg/dL (NEGATIVE); RBC, URINE AUTO 160 /HPF (0-3); SPECIFIC GRAVITY URINE AUTO 1.025 (1.002-1.035); SQUAMOUS EPITHELIAL CELL UR AU 0 /HPF (0-6); WBC, URINE AUTO 4 /HPF (0-3)
[2023-11-24] MEDS: DULoxetine 30MG CAPSULE (CYMBALTA) PO SCH (09:00)
[2023-11-24] MEDS: PANTOPRAZOLE 20 MG TAB PO SCH (09:00)
[2023-11-24] MEDS: ENOXAPARIN 40MG/0.4ML SYRINGE (J1650 PER 10MG) SC SCH (09:00)
[2023-11-24] MEDS: LOSARTAN 50MG TABLET PO SCH (09:00)
[2023-11-24] MEDS: VANCOMYCIN HCL 1,000 MG, VIAL MATE ADAPTER 1 EACH in D5W 250 ML IV ONE (13:10)
[2023-11-24] MEDS ORDERED: PROHANCE 279.3MG/ML 15ML VIAL As Ordered ONE (17:11)
[2023-11-24] MEDS: HYDROMORPHONE HCL 0.5 MG/ 0.5 ML SYRINGE IV ONE (17:32)
[2023-11-24] MEDS: VANCOMYCIN HCL 750 MG, VIAL MATE ADAPTER 1 EACH in D5W 250 ML IV SCH (18:34)
[2023-11-25] VITALS (14 sets, daily range): BP systolic 128–184; BP diastolic 63–95; TEMP 97.1–99.2; O2SAT 88–97
[2023-11-25] MEDS ORDERED: MORPHINE 2 MG/ML 1ML VIAL IV ONE (02:35)
[2023-11-25] MEDS: HYDROMORPHONE HCL 0.5 MG/ 0.5 ML SYRINGE IV ONE (02:50)
[2023-11-25 06:15] LABS: BASO % 0.8 % (0.0-1.0); EOS % 0.5 % (0.0-3.0); HEMATOCRIT 43.3 % (42.0-52.0); HEMOGLOBIN 14.8 g/dl (13.5-17.5); LYMPH % 26.5 % (24.0-44.0); MEAN CORPUSCULAR HEMOGLOBIN 27.7 pg (27.0-33.0); MEAN CORPUSCULAR HGB CONC 34.2 g/dl (32.0-36.5); MEAN CORPUSCULAR VOLUME 80.9 fl (80.0-96.0); MONO # 0.4 10^3/uL (0.0-0.8); MONO % 10.1 % (2.0-8.0); NEUTROPHILS # 2.4 10^3/uL (1.5-8.5); NEUTROPHILS % 61.3 % (36.0-66.0); RED BLOOD COUNT 5.35 10^6/uL (4.30-6.10); WHITE BLOOD COUNT 3.9 10^3/uL (4.0-10.0)
[2023-11-25 06:23] LABS: PLATELET COUNT, AUTOMATED 72 10^3/uL (150-450)
[2023-11-25 06:40] LABS: ALBUMIN 1.8 G/DL (3.2-5.2); ALKALINE PHOSPHATASE 303 U/L (46-116); ALT/SGPT 88 U/L (7.0-40); AST/SGOT 111 U/L (<34); BILIRUBIN,DIRECT 0.5 MG/DL (<0.4); BILIRUBIN,TOTAL 0.9 MG/DL (0.3-1.2); BLOOD UREA NITROGEN 20 MG/DL (9-23); CALCIUM LEVEL 7.8 MG/DL (8.3-10.6); CARBON DIOXIDE LEVEL 28 MMOL/L (20-31); CHLORIDE LEVEL 104 MMOL/L (98-107); CREATININE FOR GFR 0.54 MG/DL (0.70-1.30); GLOMERULAR FILTRATION RATE > 60.0 (>49); GLUCOSE, FASTING 126 MG/DL (74-106); POTASSIUM SERUM 3.2 MMOL/L (3.5-5.1); SODIUM LEVEL 138 MMOL/L (136-145); TOTAL PROTEIN 5.1 G/DL (5.7-8.2)
[2023-11-25] MEDS: fentaNYL 50 MCG/HR PATCH TOP SCH (09:55)
[2023-11-25] MEDS: MORPHINE 4 MG/ML 1ML VIAL IV PRN (10:38)
[2023-11-25] MEDS: VANCOMYCIN HCL 1,000 MG, VIAL MATE ADAPTER 1 EACH in D5W 250 ML IV SCH (10:38)
[2023-11-25] MEDS ORDERED: VARIBAR PUDDING 40% w/v 230ML TUBE As Ordered ONE (13:15)
[2023-11-25] MEDS ORDERED: VARIBAR NECTAR 40% w/v 240ML SUSP BTL As Ordered ONE (13:15)
[2023-11-25] MEDS ORDERED: E-Z-PAQUE 96% w/w SUSP 176GM BTL As Ordered ONE (13:16)
[2023-11-25] MEDS ORDERED: BARIUM SULFATE 700 MG TABLET (E-Z-DISK) As Ordered ONE (13:16)
[2023-11-25] MEDS ORDERED: ISOVUE-370 76% 100ML VIAL As Ordered ONE (17:23)
[2023-11-26] VITALS (23 sets, daily range): BP systolic 118–146; BP diastolic 63–80; TEMP 97–99.8; O2SAT 84–97
[2023-11-26] MEDS: cefTRIAXone SOD 2 GM in D5W MINI-BAG PLUS 50 ML IV SCH (03:10)
[2023-11-26 06:10] LABS: HEMOGLOBIN 14.3 g/dl (13.5-17.5); MEAN CORPUSCULAR HEMOGLOBIN 27.7 pg (27.0-33.0); MEAN CORPUSCULAR VOLUME 81.4 fl (80.0-96.0); RED BLOOD COUNT 5.16 10^6/uL (4.30-6.10); WHITE BLOOD COUNT 3.5 10^3/uL (4.0-10.0)
[2023-11-26 06:26] LABS: PLATELET COUNT, AUTOMATED 65 10^3/uL (150-450)
[2023-11-26] MEDS: FENTANYL REMOVAL DOCUMENTATION MISC XX SCH (10:02)
[2023-11-26] MEDS ORDERED: ISOVUE-370 76% 100ML VIAL ONE (11:14)
[2023-11-26] MEDS: LIDOCAINE 1% SDV 30ML VIAL As Ordered ONE (12:56)
[2023-11-26] MEDS ORDERED: oxyCODONE 5MG TAB PO PRN (13:10)
[2023-11-26] MEDS ORDERED: ONDANSETRON 4MG 2ML VIAL IV PRN (13:10)
[2023-11-26] MEDS: fentaNYL 100 MCG/2 ML INJECTION IV PRN (13:50)
[2023-11-27] VITALS (35 sets, daily range): BP systolic 79–172; BP diastolic 46–78; TEMP 97.2–101.6; O2SAT 88–100
[2023-11-27 08:07] LABS: HEMATOCRIT 42.3 % (42.0-52.0); HEMOGLOBIN 14.3 g/dl (13.5-17.5); MEAN CORPUSCULAR HEMOGLOBIN 27.8 pg (27.0-33.0); MEAN CORPUSCULAR HGB CONC 33.8 g/dl (32.0-36.5); MEAN CORPUSCULAR VOLUME 82.3 fl (80.0-96.0); RED BLOOD COUNT 5.14 10^6/uL (4.30-6.10); WHITE BLOOD COUNT 4.4 10^3/uL (4.0-10.0)
[2023-11-27 08:08] LABS: PLATELET COUNT, AUTOMATED 63 10^3/uL (150-450)
[2023-11-27 08:27] LABS: ATYPICAL LYMPH 2 % (0-5); EOSINOPHILS 1 % (0-3); LYMPHOCYTES 37 % (16-44); MONOCYTES 9 % (0-5); NEUTROPHILS 48 % (28-66); PLATELET ESTIMATE DECREASED (NORMAL); POLYCHROMASIA 1+
[2023-11-27 08:28] LABS: ANISOCYTOSIS 1+
[2023-11-27 08:29] LABS: BLOOD UREA NITROGEN 23 MG/DL (9-23); CALCIUM LEVEL 7.8 MG/DL (8.3-10.6); CARBON DIOXIDE LEVEL 28 MMOL/L (20-31); CHLORIDE LEVEL 104 MMOL/L (98-107); CREATININE FOR GFR 0.64 MG/DL (0.70-1.30); GLOMERULAR FILTRATION RATE > 60.0 (>49); GLUCOSE, FASTING 124 MG/DL (74-106); POTASSIUM SERUM 3.2 MMOL/L (3.5-5.1); SODIUM LEVEL 141 MMOL/L (136-145)
[2023-11-27 08:36] LABS: PROCALCITONIN 1.57 ng/ml
[2023-11-27 09:26] LABS: ERYTHROCYTE SEDIMENTATION RATE 49 mm/hr (0-20)
[2023-11-27] MEDS ORDERED: PIPERACILLIN/TAZOBACTAM SOD 3.375 GM in D5W MINI-BAG PLUS 50 ML IV SCH (10:55)
[2023-11-27 11:14] LABS: ALBUMIN 1.7 G/DL (3.2-5.2); ALKALINE PHOSPHATASE 237 U/L (46-116); ALT/SGPT 63 U/L (7.0-40); AST/SGOT 65 U/L (<34); BILIRUBIN,DIRECT 0.6 MG/DL (<0.4); BILIRUBIN,TOTAL 0.9 MG/DL (0.3-1.2); TOTAL PROTEIN 5.4 G/DL (5.7-8.2)
[2023-11-27] MEDS: ASPIRIN 81MG ENTERIC TABLET PO SCH (12:10)
[2023-11-27] MEDS: POTASSIUM CHLORIDE 10MEQ SR TABLET PO ONE (12:10)
[2023-11-27] MEDS: PIPERACILLIN/TAZOBACTAM SOD 4.5 GM in D5W MINI-BAG PLUS 50 ML IV SCH (14:22)
[2023-11-27] MEDS ORDERED: PILL CUTTER 1 EACH XX PRN (17:10)
[2023-11-27 17:18] LABS: ABG BASE EXCESS 3.5 (-2.0-2.0); ABG HCO3 27.5 MMOL/L (22.0-26.0); ABG O2 SATURATION 91.7 % (95.0-99.0); ABG PARTIAL PRESSURE CO2 39.4 mmHg (35.0-45.0); ABG PARTIAL PRESSURE O2 57.6 mmHg (75.0-100.0); ABG STANDARD HCO3 27.4 MMOL/L. (22.0-26.0); ABG TOTAL CO2 28.7 MMOL/L (23.0-31.0); ABG pH (ARTERIAL) 7.461 UNITS (7.350-7.450)
[2023-11-27] MEDS: LR 1,000 ML IV ONE ×2 (18:46→21:24)
[2023-11-27] MEDS: ACETAMINOPHEN 500 MG TAB PO PRN (18:47)
[2023-11-27] MEDS: METHADONE 10MG TAB PO SCH (19:08)
[2023-11-27] MEDS: LEVALBUTEROL 1.25MG 0.5ML CONCENTRATE NEB NEB SCH (19:50)
[2023-11-27] MEDS: IPRATROPIUM 0.02% SOLN 0.5MG 2.5ML NEB NEB SCH (19:57)
[2023-11-27] MEDS: ALPRAZolam 0.5 MG TAB PO PRN (20:33)
[2023-11-27] MEDS: CLOBETASOL PROP 0.05% OINT 30 GM TOP SCH (20:33)
[2023-11-27] MEDS: NOREPINEPHRINE 4MG IN D5 250ML 4 MG in IV 1 EA IV SCH (22:11)
[2023-11-27] MEDS ORDERED: POTASSIUM CHLORIDE 10MEQ SR TABLET PO ONE (22:20)
[2023-11-27] MEDS: MAG SULF 1GM/100ML (MAG RUN) 1 GM in IV 1 EA IV ONE (22:40)
[2023-11-27] MEDS: CALCIUM GLUCONATE 1,000 MG in D5W MINI-BAG PLUS 100 ML IV ONE (22:40)
[2023-11-27 23:18] LABS: BLOOD UREA NITROGEN 33 MG/DL (9-23); CALCIUM LEVEL 7.2 MG/DL (8.3-10.6); CARBON DIOXIDE LEVEL 30 MMOL/L (20-31); CHLORIDE LEVEL 105 MMOL/L (98-107); CREATININE FOR GFR 0.85 MG/DL (0.70-1.30); GLOMERULAR FILTRATION RATE > 60.0 (>49); GLUCOSE, FASTING 152 MG/DL (74-106); MAGNESIUM LEVEL 2.1 MG/DL (1.8-2.4); POTASSIUM SERUM 3.6 MMOL/L (3.5-5.1); SODIUM LEVEL 139 MMOL/L (136-145)
[2023-11-27] MEDS: SODIUM CHLORIDE HYPERTONIC 3% 4ML NEB SOL INH SCH (23:21)
[2023-11-28] VITALS (32 sets, daily range): BP systolic 92–123; BP diastolic 53–88; TEMP 97–98.1; O2SAT 91–99
[2023-11-28] MEDS: KCL 10MEQ/100ML SWI (KRUN) 10 MEQ in IV 1 EA IV SCH (00:13)
[2023-11-28 06:03] LABS: HEMATOCRIT 36.8 % (42.0-52.0); MEAN CORPUSCULAR HEMOGLOBIN 27.5 pg (27.0-33.0); MEAN CORPUSCULAR HGB CONC 33.4 g/dl (32.0-36.5); MEAN CORPUSCULAR VOLUME 82.3 fl (80.0-96.0); RED BLOOD COUNT 4.47 10^6/uL (4.30-6.10); WHITE BLOOD COUNT 6.5 10^3/uL (4.0-10.0)
[2023-11-28 06:20] LABS: HEMOGLOBIN 12.3 g/dl (13.5-17.5); PLATELET COUNT, AUTOMATED 65 10^3/uL (150-450)
[2023-11-28 06:37] LABS: ALBUMIN 1.4 G/DL (3.2-5.2); ALKALINE PHOSPHATASE 183 U/L (46-116); ALT/SGPT 44 U/L (7.0-40); AST/SGOT 46 U/L (<34); BILIRUBIN,DIRECT 0.5 MG/DL (<0.4); BILIRUBIN,TOTAL 0.9 MG/DL (0.3-1.2); BLOOD UREA NITROGEN 27 MG/DL (9-23); CALCIUM LEVEL 7.3 MG/DL (8.3-10.6); CARBON DIOXIDE LEVEL 30 MMOL/L (20-31); CHLORIDE LEVEL 108 MMOL/L (98-107); CREATININE FOR GFR 0.68 MG/DL (0.70-1.30); GLOMERULAR FILTRATION RATE > 60.0 (>49); GLUCOSE, FASTING 107 MG/DL (74-106); POTASSIUM SERUM 3.8 MMOL/L (3.5-5.1); SODIUM LEVEL 141 MMOL/L (136-145); TOTAL PROTEIN 4.8 G/DL (5.7-8.2)
[2023-11-28 06:53] LABS: LYMPH % 34.9 % (24.0-44.0); NEUTROPHILS % 53.5 % (36.0-66.0)
[2023-11-28 06:54] LABS: BASO # 0.1 10^3/uL (0.0-0.2); BASO % 1.2 % (0.0-1.0); EOS # 0.1 10^3/uL (0.0-0.5); EOS % 1.8 % (0.0-3.0); LYMPH # 2.3 10^3/uL (1.5-5.0); MONO # 0.5 10^3/uL (0.0-0.8); MONO % 7.5 % (2.0-8.0); NEUTROPHILS # 3.5 10^3/uL (1.5-8.5)
[2023-11-28] MEDS: TIOTROPIUM INHALER/CAPSULE (SPIRIVA) INH SCH (08:15)
[2023-11-28] MEDS: ASPIRIN 81MG CHEW TABLET PO SCH (08:47)
[2023-11-28] MEDS ORDERED: METHADONE 5MG TAB PO SCH (09:00)
[2023-11-28] MEDS ORDERED: FENTANYL REMOVAL DOCUMENTATION MISC XX SCH (09:00)
[2023-11-28] MEDS: LACTATED RINGER'S 1000 ML IV ONE (11:00)
[2023-11-28] MEDS ORDERED: LORazepam 1 MG TAB PO PRN (13:00)
[2023-11-28] MEDS: MORPHINE 10MG/0.5ML ORAL CONCENTRATE SOLUTION U/D SL PRN (13:31)
[2023-11-28] MEDS: METHADONE 5MG TAB PO SCH (21:43)
[2023-11-28] MEDS: METHADONE 10MG TAB PO SCH (21:44)
[2023-11-29] MEDS: ALPRAZolam 0.5 MG TAB PO PRN (00:26)
[2023-11-29] MEDS: oxyCODONE 5MG TAB PO ONE (00:28)
[2023-11-29] MEDS: oxyCODONE 5MG TAB PO PRN (02:01)
[2023-11-29] MEDS: fentaNYL 50 MCG/HR PATCH TOP SCH (20:12)
[2023-11-29] MEDS: FENTANYL REMOVAL DOCUMENTATION MISC XX SCH (21:00)
[2023-12-01] MEDS: CALCIUM CARBONATE 500 MG CHEW U/D PO ONE (00:24)
[2023-12-01] MEDS: SCOPOLAMINE 1MG TRANSDERMAL PATCH TOP PRN (09:39)
[2023-12-01] MEDS: CALCIUM CARBONATE 500 MG CHEW U/D PO PRN (16:58)
[2023-12-02] MEDS: ONDANSETRON 4MG ORAL DISINTEGRATING TAB SL PRN (09:58)
[2023-12-03] MEDS: MORPHINE 10MG/0.5ML ORAL CONCENTRATE SOLUTION U/D SL PRN (22:48)
[2023-12-03] MEDS: ATROPINE SULFATE 1% OPHTH SOLN 2ML BTL SL PRN (23:20)
[2023-12-05] MEDS ORDERED: MORPHINE 10MG/0.5ML ORAL CONCENTRATE SOLUTION U/D As Ordered ONE (10:30)
[2023-12-05] MEDS ORDERED: ALPRAZolam 0.5 MG TAB As Ordered ONE (12:19)
[2023-12-05] MEDS ORDERED: PILL CUTTER 1 EACH XX PRN (17:20)
[2023-12-05] MEDS: MORPHINE 10MG/0.5ML ORAL CONCENTRATE SOLUTION U/D SL PRN (17:39)
[2023-12-05] MEDS: LORazepam 1 MG TAB PO PRN (17:39)
[2023-12-05] MEDS: METHADONE 10MG TAB PO SCH (20:13)
[2023-12-10] MEDS: IPRATROPIUM 0.5MG/ALBUTEROL 2.5MG INH SOL UD 3ML (DUONEB) NEB PRN (08:12)
[2023-12-12] MEDS: MORPHINE 10MG/0.5ML ORAL CONCENTRATE SOLUTION U/D SL ONE (10:28)
[2023-12-12] MEDS: MORPHINE 10MG/0.5ML ORAL CONCENTRATE SOLUTION U/D SL PRN (14:39)
[2023-12-12] MEDS: LORazepam 2 MG TAB PO ONE (17:52)
[2023-12-17] MEDS: FENTANYL REMOVAL DOCUMENTATION MISC XX SCH (09:10)
[2023-12-17] MEDS: fentaNYL 50 MCG/HR PATCH TOP SCH (09:16)
== END 2023-12-17 13:32 | disposition expired | DRG 853 ==
LOC: M ED 05:57 → M ED INP 12:16 → M PCU 14:31 → OBSVTOIN 11-24 10:06 → M ICU 11-27 21:41 → M MSPAV 11-28 15:15
PROVIDERS: ADMIT Internal Medicine; ATTEND Preventive Medicine Undersea and Hyperbaric Medicine
PROC: 0JBN0ZZ Excision of Right Lower Leg Subcutaneous Tissue and Fascia, Open Approach (ICD-10-PCS; 2023-11-26)
PROC: 0JBP0ZZ Excision of Left Lower Leg Subcutaneous Tissue and Fascia, Open Approach (ICD-10-PCS; principal; 2023-11-26 12:30)
PROC: B246ZZZ Ultrasonography of Right and Left Heart (ICD-10-PCS; 2023-11-27)
DX: A41.9 Sepsis, unspecified organism (principal); J96.01 Acute respiratory failure with hypoxia; J69.0 Pneumonitis due to inhalation of food and vomit; J15.69 Pneumonia due to other Gram-negative bacteria; G93.41 Metabolic encephalopathy; R65.21 Severe sepsis with septic shock; G12.21 Amyotrophic lateral sclerosis; E87.1 Hypo-osmolality and hyponatremia; F11.20 Opioid dependence, uncomplicated; L03.115 Cellulitis of right lower limb; L03.116 Cellulitis of left lower limb; L97.328 Non-pressure chronic ulcer of left ankle with other specified severity; L97.318 Non-pressure chronic ulcer of right ankle with other specified severity; L88 Pyoderma gangrenosum; J44.0 Chronic obstructive pulmonary disease with (acute) lower respiratory infection; Z51.5 Encounter for palliative care; Z66 Do not resuscitate; R57.1 Hypovolemic shock; R29.6 Repeated falls; I16.0 Hypertensive urgency; R74.01 Elevation of levels of liver transaminase levels; E87.5 Hyperkalemia; D69.6 Thrombocytopenia, unspecified; K21.9 Gastro-esophageal reflux disease without esophagitis; R53.1 Weakness; F17.210 Nicotine dependence, cigarettes, uncomplicated; I10 Essential (primary) hypertension; G89.29 Other chronic pain; F41.9 Anxiety disorder, unspecified; K76.89 Other specified diseases of liver; F40.00 Agoraphobia, unspecified; R91.1 Solitary pulmonary nodule; R13.12 Dysphagia, oropharyngeal phase; I73.9 Peripheral vascular disease, unspecified; B96.1 Klebsiella pneumoniae [K. pneumoniae] as the cause of diseases classified elsewhere; E78.5 Hyperlipidemia, unspecified; Z79.899 Other long term (current) drug therapy; Z86.73 Personal history of transient ischemic attack (TIA), and cerebral infarction without residual deficits; Z88.5 Allergy status to narcotic agent